=== PATIENT | male | born 1950 | race Caucasian/White ===

== ENCOUNTER 2024-11-14 12:51 | Outpatient (AMB) | payer OTHER, SELFPAY ==
--- NOTE | 2024-11-14 12:59 | MHC.OFFVIS ---
Intake Visit Reasons: Erectile Dysfunction Intake Note: Patient is present for erectile dysfunction Urology Medication:none Antibiotic Allergy:none Blood Thinner:none Long Winder Tender Required: No HPI Comments Details: Bart is a pleasant male. He is a patient of the [facility]. He is seen for the following urologic conditions - erectile dysfunction Erectile dysfunction - The patient is a 74 year old male presenting with erectile dysfunction. - Onset of erectile dysfunction approximately 15 years ago. - Initial treatment with Viagra showed initial benefit; ceased effectiveness over time. - Trial of Cialis provided minimal improvement. - Currently using 5 mg of tadalafil daily from online provider with mild improvement. - Reports issues with sustaining and achieving erection Trial 10 mg daily with 20 mg on demand Review of Systems Const Denies chills and Denies fever(s) Card Reports no additional complaints and Denies syncope Resp Denies cough GI Denies abdominal pain and Denies heartburn Reports as per HPI and Denies change in libido Neuro Denies syncope Psych Denies change in libido Endo Denies change in libido Physical Exam Const General: cooperative, healthy appearing, comfortable and no acute distress Orientation/consciousness: patient oriented x3 HEENT Face and sinus: Yes normal facial exam Mouth: moist mucous membranes Neck Neck: Yes normal visual inspection, Yes full ROM and Yes trachea midline Chest Chest palpation & inspection: normal inspection of the chest Resp Effort & Inspection: normal respiratory effort, able to speak in complete sentences and no respiratory distress GI Inspection: Yes normal to inspection Back/Spine/Pelvis Cervical Spine: normal cervical lordosis Thoracic/Lumbar Spine: thoracic and lumbar spine normal to inspection Skin General skin exam: no rashes or lesions noted Neuro General: patient oriented x3, gait normal, tone normal and moves all extremities Extrem General: Yes normal to inspection and Yes capillary refill normal Assessment & Plan Assessment & Plan (1) Erectile dysfunction: Code(s): N52.9 - Male erectile dysfunction, unspecified Category: Medical Plan Plan Patient informed verbally consented to the use of an ambient scribe 1. Erectile Dysfunction Prescribed tadalafil 10 mg daily and 20 mg as needed. Prescription sent to [facility] for 12 tablets of 20 mg/90 days. Costs estimated at $45 for 90-day local pharmacy supply. Discussion Notes I discussed with the patient that erectile dysfunction can often be challenging to treat effectively in older age. I proposed increasing his tadalafil dosage to 10 mg daily to enhance efficacy, with an option of 20 mg for use as needed on special occasions, to be obtained through [employer] benefits. I highlighted the cost benefits of purchasing locally versus online solutions. I made the patient aware that while there is a 50% chance of significant improvement, complete resolution may not be possible due to age-related changes. Alternatives, such as penile constriction bands, were discussed if pharmacological treatments do not suffice. The patient understood and agreed to the treatment plan, including the potential benefit and limitations. Patient Instructions - Take 10 mg of tadalafil daily. - Use 20 mg tadalafil as needed up to 12 per 90 days, obtain from [facility]. - Purchase medications from local pharmacy to reduce costs. - Call to stop online subscription for tadalafil. - Follow-up in 3 months to evaluate treatment efficacy and adjust if necessary. - Report any adverse effects or concerns immediately. Medications: New tadalafil 60 minutes performed 10 and activity 20 mg PO ONCE 90 days PRN 12 tabs 0RF sexual activity N52.9 - Male erectile dysfunction, unspecified tadalafil Daily medication [id number] [facility] [id number] Member [id number] 10 mg PO DAILY 90 days 90 tabs 0RF sexual activity N52.9 - Male erectile dysfunction, unspecified Patient Instructions: This note is constructed using voice recognition software. While every effort has been made to ensure accuracy cardiopulmonary technologist errors may have been included. Imaging studies, laboratory and physical exam results were discussed and reviewed in detail. No major barriers to patient understanding were identified. An opportunity to ask questions regarding the treatment plan was provided. All questions were answered. The patient expressed understanding and agreement with the above treatment plan. The patient is aware they should contact our office by phone for worsening of their current condition or the appearance of new urologic symptoms. Compliance is encouraged with any medications and followup testing that is ordered. It is a privilege to participate in the urologic care of your patient. If you have any questions or concerns regarding treatment for the above conditions, or other urologic issues, please do not hesitate to contact me. The office telephone contact is [phone]. Sincerely, Dr Santy Hanson MD, [facility] - Urology Compassionate Specialist Care for the Genitourinary System Coding Level of Care Code New Pt Level 4 (59331) Diagnoses Erectile dysfunction N52.9
--- OUTSIDE RECORDS SUMMARY | 2024-11-14 13:06 | XMS_ITS ---
Author Name [facility] [place] Organization [facility] [place] Address [address] [place] [id number] Care Team Providers Care Carcass Washer Name Role Phone ANTONINA MEAD Primary Care Provider [facility] Insurance Providers: All historical and current Section Date Range: From patient's date of to the date document was created. This section includes the names of all active insurance providers for the patient. Insurance Provider Type of Coverage Plan Name Start of Policy Coverage End of Policy Coverage Group Number Member ID Insurance Provider's Telephone Number Policy Gonzalez's Name Patient's Relationship to Policy Gonzalez [facility] FEP PREFERRED PROVIDER ORGANIZAT ION (PPO) BASIC INDIV IDUAL Apr 18, 2022 [id number] [phone] AARON HENSLEY PATIENT [facility] THOM FEP PREFERRED PROVIDER ORGANIZAT ION (PPO) BASIC INDIV IDUAL Apr 18, 2022 [id number] AARON HENSLEY PATIENT MEDICARE (WNR) MEDICARE (M) PART A Mar 18, 2014 PART A [id number] AARON HENSLEY PATIENT MEDICARE (WNR) MEDICARE (M) PART B Mar 18, 2014 PART B [id number] AARON HENSLEY PATIENT Selected Encounter This section includes the information on record at [place] for the Encounter. Date/Time Encounter Type Encounter Description Reason Pro vider Source November 13, 2024 10:42 AM Outpatient Encounter PRIMARY CARE/MEDICINE IHE Encounter Template Text not used by [place] Plan of Treatment: Future Appointments (+ 6 months) and Future Tests (+/- 45 days) The Plan of Treatment section includes future care activities for the patient [facility] [place] [facility] This section includes future appointments and future orders which are active, pending or scheduled. Future Appointments This section includes appointments that were scheduled to occur 6 months from the date of the Encounter, up to a maximum of 20 appointments. The data comes from all [facility]. Appointment Date/Time Appointment Type Appointme nt Facility Name November 14, 2024 01:30 PM AMBULATORY - MEDICINE [facility] Nov 17, 2024 11:00 AM AMBULATORY MEDICINE [facility] Nov 18, 2024 03:00 PM AMBULATORY MEDICINE [facility] Active, Pending, and Scheduled Orders This section includes a listing of several types of active, pending, and scheduled orders, including clinic medications orders, diagnostic test orders, procedure orders and consult orders; where the start date of the order is 45 days before the date of the Encounter or 45 days after the date of theEncounter. The data comes from all [facility]. Test Date/Time Test Type Test Details Facility Name October 31, 2024 12:00 AM Laboratory - Chemi stry Order BASIC METABOLIC PANEL (non-fasting) BLOOD (SST-SERUM) [facility] October 31, 2024 12:00 AM Laboratory - Chemi stry Order LIPID PANEL FASTING BLOOD (SST-SERUM) [facility] October 31, 2024 12:00 AM Laboratory - Chemi stry Order LIVER FUNCTION BLOOD (SST-SERUM) [facility] October 31, 2024 12:00 AM Laboratory - Chemi stry Order CBC BLOOD (LAV-BLOOD) [facility] November 11, 2024 03:05 PM Consult Order COMMUNITY CARE-UROLOGY Cons [facility] Worker's [facility] Social History: Smoking Status (Most current) and Tobacco Use (All prior to encounter date) This section includes the most current, and the historical, smoking and tobacco- related health factors from the [place] facility where the Encounter took place. Current Smoking Status This section includes the most current smoking, or tobacco-related health factor, from the [place] facility where the Encounter took place. Date/Time Current Smoking Status Comment Perfecto meraz Jul 03, 2024 11:30 AM VA-TOBACCO NEVER U SED CIGARETTES [facility] Tobacco Use History This section includes a history of the smoking, or tobacco-related health factors, that were collected on or before the date of the Encounter. The data comes from the [place] facility where the Encounter took place. Date/Time Smoking Status/Tobacco Use Comment Alyssia be Jul 03, 2024 11:30 AM VA-TOBACCO NEVER U SED OTHER TYPE [facility] [place] [facility] Jun 05, 2023 03:30 PM VA-TOBACCO NEVER USED [facility] [place] [facility] May 17, 2022 09:00 AM VA-TOBACCO DOESNT USE WI 30 MIN WAKEUP [facility] [place] [facility] May 17, 2022 09:00 AM VA-TOBACCO USE > 1 5 LESS THAN 30 YEARS [facility] [place] [facility] May 17, 2022 09:00 AM VA-TOBACCO USE ADVICE [facility] [place] [facility] May 17, 2022 09:00 AM VA-TOBACCO USE FINISHER PLATE NO [facility] [place] [facility] May 17, 2022 09:00 AM VA-TOBACCO USE MED NO [facility] [place] [facility] May 17, 2022 09:00 AM VA-TOBACCO USER EVERY DAY [facility] [place] [facility] Mar 17, 2021 08:00 AM VA-TOBACCO DOESNT USE WI 30 MIN WAKEUP [facility] [place] [facility] Mar 17, 2021 08:00 AM VA-TOBACCO USE 30 YEARS OR MORE [facility] [place] [facility] Mar 17, 2021 08:00 AM VA-TOBACCO USE ADVICE [facility] [place] [facility] Mar 17, 2021 08:00 AM VA-TOBACCO USE FINISHER PLATE NO [facility] [place] [facility] Mar 17, 2021 08:00 AM VA-TOBACCO USE MED NO [facility] [place] [facility] Mar 17, 2021 08:00 AM VA-TOBACCO USER EVERY DAY [facility] [place] [facility] Sep 25, 2019 01:42 PM VA-TOBACCO DOESNT USE WI 30 MIN WAKEUP [facility] [place] [facility] Sep 25, 2019 01:42 PM VA-TOBACCO USE 30 YEARS OR MORE [facility] [place] [facility] Sep 25, 2019 01:42 PM VA-TOBACCO USE ADVICE [facility] [place] [facility] Sep 25, 2019 01:42 PM VA-TOBACCO USE FINISHER PLATE NO [facility] [place] [facility] Sep 25, 2019 01:42 PM VA-TOBACCO USE MED NO [facility] [place] [facility] Sep 25, 2019 01:42 PM VA-TOBACCO USER EVERY DAY [facility] [place] [facility] Jun 19, 2018 12:39 PM VA-TOBACCO DOESNT USE WI 30 MIN WAKEUP [facility] [place] [facility] Jun 19, 2018 12:39 PM VA-TOBACCO USE > 1 5 LESS THAN 30 YEARS [facility] [place] [facility] Jun 19, 2018 12:39 PM VA-TOBACCO USE ADVICE [facility] [place] [facility] Jun 19, 2018 12:39 PM VA-TOBACCO USE FINISHER PLATE NO [facility] [place] [facility] Jun 19, 2018 12:39 PM VA-TOBACCO USE MED NO [facility] [place] [facility] Jun 19, 2018 12:39 PM VA-TOBACCO USER EVERY DAY [facility] [place] [facility] May 08, 2017 10:41 AM CURRENT SMOKER cigars [facility] [place] [facility] Apr 14, 2016 09:10 AM CURRENT SMOKER [facility] [place] [facility] Apr 14, 2016 09:10 AM V1-PT NOT INTEREST ED IN QUIT TOBACCO USE [facility] [place] [facility] Encounter Notes: All associated encounter notes This section contains the clinical notes associated to the Encounter. Date/Time Encounter Note(s) Provider Source November 13, 2024 10:42 AM NURSING NOTE: LOCAL TITLE: NURSING/TELEPHONE STANDARD TITLE: NURSING NOTE DATE OF NOTE: NOVEMBER 13, 2024@10:42 ENTRY DATE: NOVEMBER 13, 2024@10:42:50 AUTHOR: JUSTO PERRIN EXP COSIGNER: URGENCY: STATUS: COMPLETED Labs completed on 10-13-2024@1100 for appt with PCP on 11-17-2024@1100. /melida/ Justo Perrin, [employer] Counter Person MAJOR ASSEMBLY LINEMAN,PRIMARY CARE Signed: 11/13/2024 10:44 JUSTO PERRIN [facility]
== END 2024-11-14 13:26 | disposition home or self-care (01) ==
LOC: HO.HUSH 12:52
PROVIDERS: PCP Internal Medicine Endocrinology, Diabetes & Metabolism; Visit Provider Urology
DX: N52.9 Male erectile dysfunction, unspecified (principal); Z13.9 Encounter for screening, unspecified
CPT/HCPCS: 99204

== ENCOUNTER → 2024-11-14 12:51 | Outpatient (BNVA) | payer OTHER, SELFPAY | PROVIDERS: PCP Internal Medicine Endocrinology, Diabetes & Metabolism; Visit Provider Urology | DX: N52.9 Male erectile dysfunction, unspecified (principal) | CPT/HCPCS: 81003; 99202 ==

== ENCOUNTER 2025-02-17 10:08 | Outpatient (AMB) | payer OTHER, SELFPAY ==
--- OUTSIDE RECORDS SUMMARY | 2024-03-24 07:30 | XMS_ITS | Encounter Summary ---
Author Name [facility] [facility] [place] Address [address] [place] [id number] Care Team Providers Care Fuselage Framer Name Role Phone ANTONINA JENSEN Primary Care Provider [facility] Insurance Providers: All historical and current Section Date Range: From patient's date of to the date document was created. This section includes the names of all active insurance providers for the patient. Insurance Provider Type of Coverage Plan Name Start of Policy Coverage End of Policy Coverage Group Number Member ID Insurance Provider's Telephone Number Policy Gonzalez's Name Patient's Relationship to Policy Gonzalez [employer]BS THOM FEP PREFERRED PROVIDER ORGANIZAT ION (PPO) BASIC INDIV IDUAL Apr 18, 2022 [id number] [phone] AARON HENSLEY PATIENT BCBS THOM FEP PREFERRED PROVIDER ORGANIZAT ION (PPO) BASIC INDIV IDUAL Apr 18, 2022 [id number] [phone] AARON HENSLEY PATIENT MEDICARE (WNR) MEDICARE (M) PART A Mar 18, 2014 PART A [id number] AARON HENSLEY PATIENT MEDICARE (WNR) MEDICARE (M) PART B Mar 18, 2014 PART B [id number] AARON HENSLEY PATIENT Selected Encounter This section includes the information on record at [place] for the Encounter. Date/Time Encounter Type Encounter Description Reason Provider Source Mar 24, 2024 11:30 AM OFFICE O/P EST MOD 30 MIN PRIMARY CARE/MEDICINE ICD-10-CM E78.5 Hyperlipidemia, unspecified JENSEN,ALEJANDRA SULLIVAN Encounter Template Text not used by [place] Assessments - Encounter Diagnoses This section includes the primary and secondary diagnoses documented for the Encounter. Date/Time Primary/Secondary Diagnosis Diagnosis Name Provider Source Mar 26, 2024 07:53 AM PRIMARY Hyperlipidemia, unspecified JENSEN,WILL AHSAN [facility] Mar 26, 2024 07:53 AM SECONDARY Encounter for immunization RODERICKSTALIN Rodriguez [facility] Mar 26, 2024 07:53 AM SECONDARY Essential (primary) hypertension JENSEN,WILL AHSAN [facility] Mar 26, 2024 07:53 AM SECONDARY Male erectile dysfunction, unspecified [facility] Mar 26, 2024 07:53 AM SECONDARY Personal history of malignant melanoma of skin JENSEN,WILL AHSAN [facility] Mar 26, 2024 07:53 AM SECONDARY Prediabetes JENSEN,WILL AHSAN [facility] Mar 26, 2024 07:53 AM SECONDARY Tobacco use JENSEN,WILL AHSAN [facility] Plan of Treatment: Future Appointments (+ 6 months) and Future Tests (+/- 45 days) The Plan of Treatment section includes future care activities for the patient from all [place] treatmentfacilities. This section includes future appointments and future orders which are active, pending or scheduled. Future Appointments This section includes appointments that were scheduled to occur 6 months from the date of the Encounter, up to a maximum of 20 appointments. The data comes from all [place] treatment facilities. Appointment Date/Time Appointment Type Appointme nt Facility Name Jul 03, 2024 11:30 AM [facility] Aug 12, 2024 08:30 AM AMBULATORY - NONE [facility] Vital Signs: All taken on the encounter date This section contains inpatient and outpatient Vital Signs collected on the date of the Encounter. Date/Time Temperature Pulse Blood Pressure Respiratory Rate SP02 Pain Height Weight Body Mass Index Source Mar 24, 2024 11:24 AM 98 80 137/78 16 96 0 70 171.8 25 [facility] Immunizations: All administered on the encounter date This section contains immunizations associated to the Encounter. Immunization Series Date Issued Administered By Site Reaction Lot Number CVX Code Drug Cage Supervisor Comment(s) Source COVID-19 (MODERNA), MRNA, LNP-S, PF, 50 MCG/0.5 ML (AGES 12+ YEARS) 6 Mar 24, 2024 STALIN VAUGHN RIGHT DELTO ID [id number] [employer] ADMINISTERE D AT [facility] INFLUENZA, HIGH-DOSE, TRIVALENT, PF Mar 24, 2024 GUANACO VAUGHNElier Silverio Jennifer LEFT DELTO ID [id number] [employer] PASTEUR Completed Series, ADMINISTERE D AT [facility] Social History: Smoking Status (Most current) and Tobacco Use (All prior to encounter date) This section includes the most current, and the historical, smoking and tobacco- related health factors from the [place] facility where the Encounter took place. Current Smoking Status This section includes the most current smoking, or tobacco-related health factor, from the [place] facility where the Encounter took place. Date/Time Current Smoking Status Comment Perfecto ity Jun 05, 2023 03:30 PM VA-TOBACCO NEVER USED [facility] Tobacco Use History This section includes a history of the smoking, or tobacco-related health factors, that were collected on or before the date of the Encounter. The data comes from the [place] facility where the Encounter took place. 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 [facility] [place] [facility] May 17, 2022 09:00 AM VA-TOBACCO USE MED NO [facility] [place] [facility] May 17, 2022 09:00 AM VA-TOBACCO USER EVERY DAY [facility] [place] [facility] Mar 17, 2021 08:00 AM VA-TOBACCO DOESNT USE WI 30 MIN WAKEUP [facility] [place] [facility] Mar 17, 2021 08:00 AM VA-TOBACCO USE 30 YEARS OR MORE [facility] [place] [facility] Mar 17, 2021 08:00 AM VA-TOBACCO USE ADVICE [facility] [place] [facility] Mar 17, 2021 08:00 AM 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 [facility] [place] [facility] Mar 17, 2021 08:00 AM VA-TOBACCO USE MED NO [facility] [place] [facility] Mar 17, 2021 08:00 AM VA-TOBACCO USER EVERY DAY [facility] [place] [facility] Sep 25, 2019 01:42 PM VA-TOBACCO DOESNT USE WI 30 MIN WAKEUP [facility] [place] [facility] Sep 25, 2019 01:42 PM VA-TOBACCO USE 30 YEARS OR MORE [facility] [place] [facility] Sep 25, 2019 01:42 PM VA-TOBACCO USE ADVICE [facility] [place] [facility] Sep 25, 2019 01:42 PM 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 [facility] [place] [facility] Sep 25, 2019 01:42 PM VA-TOBACCO USE MED NO [facility] [place] [facility] Sep 25, 2019 01:42 PM VA-TOBACCO USER EVERY DAY [facility] [place] [facility] Jun 19, 2018 12:39 PM VA-TOBACCO DOESNT USE WI 30 MIN WAKEUP [facility] [place] [facility] Jun 19, 2018 12:39 PM VA-TOBACCO USE > 1 5 LESS THAN 30 YEARS [facility] [place] [facility] Jun 19, 2018 12:39 PM VA-TOBACCO USE ADVICE [facility] [place] [facility] Jun 19, 2018 12:39 PM 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 Jun 19, 2018 12:39 PM VA-TOBACCO USER EVERY DAY [facility] May 08, 2017 10:41 AM CURRENT SMOKER cigars [facility] Apr 14, 2016 09:10 AM [facility] Apr 14, 2016 09:10 AM V1-PT NOT INTEREST ED IN QUIT TOBACCO USE [facility] Encounter Notes: All associated encounter notes This section contains the clinical notes associated to the Encounter. Date/Time Encounter Note(s) Provider Source Mar 24, 2024 11:57 AM PREVENTIVE MEDICINE NURSING NOTE: LOCAL TITLE: CLINICAL REMINDERS/NURSING STANDARD TITLE: PREVENTIVE MEDICINE NURSING NOTE DATE OF NOTE: MAR 24, 2024@11:57 ENTRY DATE: MAR 24, 2024@11:57:22 AUTHOR: ALMITA VAUGHN EXP COSIGNER: URGENCY: STATUS: COMPLETED Influenza Immunization: Influenza, High-Dose, Trivalent, Preservative Free (Fluzone-Syringe) Administered: INFLUENZA, HIGH-DOSE, TRIVALENT, PF Date Administered: Mar 24, 2024 11:30 Series: Complete Cage Supervisor: SANOFI PASTEUR Lot: [id number] Exp Date: Dec 15, 2024 ND: [id number] Admin Route/Site: INTRAMUSCULAR/LEFT DELTOID Dosage: 0.5mL Vaccine Information Statement(s): INFLUENZA(FLU) VACC(INACTIVATED OR RECOMBINANT)VIS Jan 21, 2021 ([place]) Order By: Policy Administered By: Almita Vaughn The Influenza Vaccine Information Statement (VIS) was reviewed with the patient/caregiver which lists the benefits and risks of the vaccine and the risks of not receiving the Influenza vaccine. The patient/caregiver denied any prior severe reaction to this vaccine or its components or a severe allergic reaction, such as anaphylaxis, to any vaccine or any injectable therapy. The patient/caregiver gave verbal consent to receive the vaccine. COVID-19 Immunization: Moderna Monovalent (Spikevax) Administered: COVID-19 (MODERNA), MRNA, LNP-S, PF, 50 MCG/0.5 ML (AGES 12+ YEARS) Date Administered: Mar 24, 2024 11:30 Series: Series 6 Cage Supervisor: [employer]. Lot: [id number] Exp Date: November 07, 2024 [facility]: [id number] Admin Route/Site: INTRAMUSCULAR/RIGHT DELTOID Dosage: 0.5mL Vaccine Information Statement(s): COVID-19 MRNA VACCINE (12+ YRS) VACCINE VIS 2023 ([place]) Order By: Policy Administered By: Almita Vaughn Vaccine administered without complications. /melida/ ALMITA VAUGHN LPN LPN Signed: 03/24/2024 11:59 ALMITA VAUGHN [facility] [place] [facility] Mar 24, 2024 11:30 AM PRIMARY CARE NURSE PRACTITIONER OUTPATIENT NOTE: LOCAL TITLE: NURSE PRACTITIONER OUTPATIENT NOTE STANDARD TITLE: PRIMARY CARE NURSE PRACTITIONER OUTPATIENT NOTE DATE OF NOTE: MAR 24, 2024@11:30 ENTRY DATE: MAR 26, 2024@07:48:43 AUTHOR: ANTONINA JENSEN COSIGNER: URGENCY: STATUS: COMPLETED Chief complaint: Patient is a 73 year old . HPI: Pleasant male here to follow up. First visit with me. Feeling well. Allergies: PENICILLIN The following VA and Non-VA meds were reconciled with patient. The patient was educated on the use of the medications including indication and side effects. Active and Recently Outpatient Medications (excluding Supplies): Active Outpatient Medications Status 1) LOSARTAN 50MG TAB TAKE ONE TABLET BY MOUTH ONCE DAILY ACTIVE FOR BLOOD PRESSURE/HEART 2) SILDENAFIL CITRATE 100MG TAB TAKE ONE TABLET BY MOUTH ACTIVE ONCE DAILY NEEDED FOR ERECTILE DYSFUNCTION TAKE 1 HOUR PRIOR TO SEXUAL ACTIVITY 3) TRAZODONE HCL 100MG TAB TAKE ONE AND ONE-HALF TABLETS ACTIVE BY MOUTH AT BEDTIME FOR INSOMNIA 4) UREA 10% LOTION APPLY SMALL AMOUNT TOPICALLY TWICE ACTIVE DAILY FOR THICKENED OUTER LAYER OF SKIN *FOR EXTERNAL USE ONLY* Review of Systems: Constitutional: (-)for Fevers, chills, weakness, nights sweats On examination: 98 F [36.7 C] (03/24/2024 11:24)137/78 (03/24/2024 11:24)80 (03/24/2024 11:24)16 (03/24/2024 11:24)0 (03/24/2024 11:24)BMI: 24.7171.8 lb [77.93 kg] (03/24/2024 11:24) [place] is alert and oriented X3 Eyes:No scleral icterus, lids normal, Pupils equal,round and reactive to light HEENT: External without scars, lesions or masses, TM's without erythema or perforations, Oropharynx without erythema or exudates or worrisome lesions Neck: supple without masses, trachea midline, ln not palpable, no thyromegaly Cardiovasc: 2plus carotids without bruits, no JVD Heart Reguler rate and rhythm NL S1S2 no S3 or murmur Respiration: Normal respiratory effort, lungs clear ABD: Benign normal active bowel sounds no HSM no rebound or referred pain EXT: no clubbing, edema, or cyanosis All diagnostics from past month were reviewed with patient. Assessment/plan: Active problems - Computerized Problem List is the source for the followin. Hyperlipidemia - labs ordered 2. Prediabetes - labs ordered 3. Hypertension = well controlled 4. Erectile dysfunction (SNOMED CT [id number]) - sildenafil helpful 5. Tobacco use - counseled 6. History of malignant melanoma - [facility] Review of medial record = 5mins Time spent with Patient including shared decision making = 15 mins Post visit documentation = 5mins Total time = 25 mins Follow up visit in 6 mos. Medication Reconciliation: Outpatient: Has the patient been taking medications as documented in the EMLR? YES: The patient has been taking medications as documented in the EMLR. Essential Medication List for Review used to complete this medication reconciliation. INCLUDED IN THIS LIST: Alphabetical list of active outpatient prescriptions dispensed from this [facility] (local) and dispensed from another [place] or [facility] facility (remote) as well as inpatient orders (local, pending and active), local clinic medications, locally documented non-VA medications, and local prescriptions that have or been discontinued in the past 90 days. - All changes in medications, including all non-VA/Herbal/OTC medications were entered into CPRS. - If there were any medications the patient should no longer take, they were discontinued. - The patient/caregiver was instructed to update this list, discard old lists, and take this list to the next appointment, whether with a VA or non-VA provider. /melida/ Antonina Jensen DNP, [employer] PERSON-BC, CNL Primary Care Nurse Practitioner Signed: 03/26/2024 07:52 ANTONINA JENSEN [facility]
--- OUTSIDE RECORDS SUMMARY | 2024-07-03 07:30 | XMS_ITS | Encounter Summary ---
Author Name [facility] [place] [facility] [place] [facility] [place] Address [address] [place] [id number] Care Team Providers Care Pile Driving Superintendent Name Role Phone TICO JENSEN Primary Care Provider [facility] Insurance Providers: All historical and current [...] BASIC INDIV IDUAL Apr 18, 2022 [id number] AARON HENSLEY PATIENT BCBS THOM FEP PREFERRED PROVIDER ORGANIZAT ION (PPO) BASIC INDIV IDUAL Apr 18, 2022 [id number] AARON HENSLEY PATIENT MEDICARE (WNR) MEDICARE (M) PART A Mar 18, 2014 PART A [id number] AARON HENSLEY PATIENT MEDICARE (WNR) MEDICARE (M) PART B Mar 18, 2014 PART B [id number] AARON HENSLEY PATIENT Selected Encounter This section includes the information on record at [place] for the Encounter. Date/Time Encounter Type Encounter Description Reason Provider Source Jul 03, 2024 11:30 AM OFFICE O/P EST MOD 30 MIN PRIMARY CARE/MEDICINE ICD-10-CM N52.9 Male erectile dysfunction, unspecified ALEJANDRA JENSEN AM [facility] Encounter Template Text not used by [place] Assessments - Encounter Diagnoses This section includes the primary and secondary diagnoses documented for the Encounter. Date/Time Primary/Secondary Diagnosis Diagnosis Name Provider Source Jul 03, 2024 01:05 PM PRIMARY Male erectile dysfunction, unspecified [facility] Jul 03, 2024 01:05 PM SECONDARY Encounter for screening for malignant neoplasm of colon ALEJANDRA JENSEN AM [facility] Plan of Treatment: Future Appointments (+ 6 months) and Future Tests (+/- 45 days) The Plan of Treatment section includes future care activities for the patient from all [place] treatmentfacilities. This section includes future appointments and future orders which are active, pending or scheduled. Future Appointments This section includes appointments that were scheduled to occur 6 months from the date of the Encounter, up to a maximum of 20 appointments. The data comes from all [place] treatment facilities. Appointment Date/Time Appointment Type Appointme nt Facility Name Aug 12, 2024 08:30 AM AMBULATORY - NONE [facility] November 14, 2024 01:30 PM AMBULATORY - MEDICINE [facility] Lab Results: +/- 30 days of the encounter This section includes the Chemistry and Hematology Lab Results on record with [place] for the patient. Radiology Reports and Pathology Reports are provided separately, in subsequent sections. Lab Results This section contains the Chemistry/Hematology Results that were resulted 30 days before or 30 daysafter the date of the Encounter. Date/Time Source Result Type Result - Unit Interpretation Reference Range Specimen Type Comment Jun 12, 2024 12:01 AM [facility] OCCULT BLOOD FIT X1 SCREEN(IN-HOUSE) FECES Sp ecimen Type: FECES Comment: Collection date could not be determined. Sample integrity cannot be ensured. Follow-up clinical evaluation following this presumptive positive result is required to determine further action. Ordering Provider: TICO JENSEN Report Released Date/Time: May 23, 2024 03:07 PM Reporting Lab: [address] [place] [address] Performing Lab: [facility] [place] [facility] [address] [facility] [address] OCCULT BLOOD (FIT)#1 OF 1 POSITIVE HH NEG Vital Signs: All taken on the encounter date This section contains inpatient and outpatient Vital Signs collected on the date of the Encounter. Date/Time Temperature Pulse Blood Pressure Respiratory Rate SP02 Pain Height Weight Body Mass Index Source Jul 03, 2024 01:02 PM 134/72 [facility] [place] [facility] Jul 03, 2024 11:04 AM 98.2 78 140/83 20 97 0 70 171 25 [facility] [place] [facility] Social History: Smoking Status (Most current) and Tobacco Use (All prior to encounter date) This section includes the most current, and the historical, smoking and tobacco- related health factors from the [place] facility where the Encounter took place. Current Smoking Status This section includes the most current smoking, or tobacco-related health factor, from the [place] facility where the Encounter took place. Date/Time Current Smoking Status Comment Perfecto ity Jul 03, 2024 11:30 AM VA-TOBACCO NEVER U SED CIGARETTES [facility] Tobacco Use History This section includes a history of the smoking, or tobacco-related health factors, that were collected on or before the date of the Encounter. The data comes from the [place] facility where the Encounter took place. Date/Time Smoking Status/Tobacco Use Comment F acility Jul 03, 2024 11:30 AM VA-TOBACCO NEVER U SED OTHER TYPE [facility] [place] [facility] Jun 05, 2023 03:30 PM VA-TOBACCO NEVER USED [facility] [place] [facility] May 17, 2022 09:00 AM VA-TOBACCO DOESNT USE WI 30 MIN WAKEUP [facility] [place] [facility] May 17, 2022 09:00 AM VA-TOBACCO USE > 1 5 LESS THAN 30 YEARS [facility] [place] [facility] May 17, 2022 09:00 AM VA-TOBACCO USE ADVICE [facility] [place] [facility] May 17, 2022 09:00 AM VA-TOBACCO USE BUSINESS SERVICES OFFICER NO [facility] [place] [facility] Mar 17, 2021 08:00 AM VA-TOBACCO USE BUSINESS SERVICES OFFICER NO [facility] [place] [facility] Sep 25, 2019 01:42 PM VA-TOBACCO USE BUSINESS SERVICES OFFICER NO [facility] [place] [facility] Jun 19, 2018 12:39 PM VA-TOBACCO USE BUSINESS SERVICES OFFICER NO [facility] [place] [facility] Jun 19, 2018 12:39 PM VA-TOBACCO USE MED NO [facility] Jun 19, 2018 12:39 PM VA-TO[facility]ACCO USER EVERY DAY [facility] May 08, 2017 10:41 AM CURRENT SMOKER cigars [facility] Apr 14, 2016 09:10 AM CURRENT SMOKER [facility] Apr 14, 2016 09:10 AM V1-PT NOT INTEREST ED IN QUIT TOBACCO USE [facility] Encounter Notes: All associated encounter notes This section contains the clinical notes associated to the Encounter. Date/Time Encounter Note(s) Provider Source Jul 03, 2024 11:47 AM PRIMARY CARE NURSE PRACTITIONER OUTPATIENT NOTE: LOCAL TITLE: NURSE PRACTITIONER OUTPATIENT NOTE STANDARD TITLE: PRIMARY CARE NURSE PRACTITIONER OUTPATIENT NOTE DATE OF NOTE: JUL 03, 2024@11:47 ENTRY DATE: JUL 03, 2024@11:47:06 AUTHOR: TICO JENSEN COSIGNER: URGENCY: STATUS: COMPLETED Chief complaint: Patient is a 74 year old . HPI: Pleasant male [place] here to follow up. He is in a relationship, past 1.5 years and maybe moving in with each other. Allergies: PENICILLIN The following VA and Non-VA meds were reconciled with patient. The patient was educated on the use of the medications including indication and side effects. Active and Recently Outpatient Medications (excluding Supplies): Active Outpatient Medications Status 1) LOSARTAN 50MG TAB TAKE ONE TABLET BY MOUTH ONCE DAILY FOR ACTIVE (S) BLOOD PRESSURE/HEART Indication: FOR HIGH BLOOD PRESSURE 2) TRAZODONE HCL 100MG TAB TAKE ONE AND ONE-HALF TABLETS BY ACTIVE MOUTH AT BEDTIME FOR INSOMNIA Indication: FOR INSOMNIA ASSOCIATED WITH DEPRESSION 3) UREA 10% LOTION APPLY SMALL AMOUNT TOPICALLY TWICE DAILY ACTIVE *FOR EXTERNAL USE ONLY* Indication: FOR THICKENED OUTER LAYER OF SKIN Inactive Outpatient Medications Status 1) TRAZODONE HCL 100MG TAB TAKE ONE AND ONE-HALF TABLETS BY MOUTH AT BEDTIME FOR INSOMNIA 4 Total Medications Review of Systems: Constitutional: (-)for Fevers, chills, weakness, nights sweats On examination: 98.2 F [36.8 C] (07/03/2024 11:04)140/83 (07/03/2024 11:04)78 (07/03/2024 11:04)20 (07/03/2024 11:04)0 (07/03/2024 11:)BMI: 24.6171 lb [77.56 kg] (07/03/2024 11:) [place] is alert and oriented X3 Cardiovasc: 2plus carotids without bruits, no JVD [...] List is the source for the followin. Erectile dysfunction (SNOMED CT [id number]) - sildenafil not helpful. He used cialis in the past, felt it caused some lower ext edema, now thinks it was something else, will to try it. Also has consult with community urology. 2. +fit - he is scheduled with GI for colonoscopy. Today I spent 30 minutes on some or all of the following: chart review, history, physical examination, treatment planning, education and counseling of the patient/family/occasional caregiver, placing orders, communicating with other health care providers, completing health and wellness screenings (see below) and documentation in the electronic health record. Follow up visit as scheduled. HTN Assess for Elevated BP>=140/90: Repeat blood pressure: 134/72 The patient's blood pressure is usually adequately controlled. No medication changes are indicated at this time. Medication Reconciliation: Outpatient: Has the patient been taking medications as documented in the EMLR? YES: The patient has been taking medications as documented in the EMLR. Essential Medication List for Review used to complete this medication reconciliation. INCLUDED IN THIS LIST: Alphabetical list of active outpatient prescriptions dispensed from this [facility] (local) and dispensed from another VA or [facility] facility (remote) as well as [...] with a VA or non-VA provider. /melida/ Tico Jensen DNP, FLAVORING MAKER-BC, CNL Primary Care Nurse Practitioner Signed: 07/03/2024 13:04 TICO JENSEN [facility] [place] [facility] Jul 03, 2024 11:14 AM PREVENTIVE MEDICINE NURSING NOTE: LOCAL TITLE: CLINICAL REMINDERS/NURSING STANDARD TITLE: PREVENTIVE MEDICINE NURSING NOTE DATE OF NOTE: JUL 03, 2024@11:14 ENTRY DATE: JUL 03, 2024@11:14:42 AUTHOR: JUSTO PERRINIGNER: URGENCY: STATUS: COMPLETED Advance Directive Screen MH AD: Patient does not have an Advance Directive completed and is requesting more information. A consult was sent to Social Work Services at this visit so that an appointment can be made with the patient to review the advance directive. The patient received education about Advance Directives and written notification of his/her rights. Suicide Screen: C-SSRS Screening [place]-Suicide Severity Rating Scale (C-SSRS Screener) 1. Over the past month, have you wished you were or wished you could go to sleep and not wake up? No 2. Over the past month, have you had any actual thoughts of killing yourself? No 3. Over the past month, have you been thinking about how you might do this? Response not required due to responses to other questions. 4. Over the past month, have you had these thoughts and had some intention of acting on them? Response not required due to responses to other questions. 5. Over the past month, have you started to work out or worked out the details of how to kill yourself? Response not required due to responses to other questions. 6. If yes, at any time in the past month did you intend to carry out this plan? Response not required due to responses to other questions. 7. In your lifetime, have you ever done anything, started to do anything, or prepared to do anything to end your life (for example, collected pills, obtained a gun, gave away valuables, went to the roof but didn't jump)? No 8. If YES, was this within the past 3 months? Response not required due to responses to other questions. Homelessness/Food Insecurity Screen: In the past 2 months, have you been living in stable housing that you own, rent, or stay in as part of a household? Yes - Living in stable housing. Are you worried or concerned that in the next 2 months you may NOT have stable housing that you own, rent, or stay in as part of a household? No - Not worried about housing near future The reports the following: Within the past 12 months, you worried whether your food would run out before you got money to buy more. Never true Within the past 12 months, the food you bought just didn't last and you didn't have money to get more. Never true Falls & Incontinence Screen: Falls Screen: During the past 12 months, did the patient report any falls? 4. No falls within the past year. Incontinence Screen: During the past 12 months, has the patient has any characteristics of incontinence (ability, voiding, leakage, etc.)? No incontinence. Depression Screening: Perform PHQ-2 A PHQ-2 screen was performed. The score was 0 which is a negative screen for depression. Over the past two weeks, how often have you been bothered by the following problems? 1. Little interest or pleasure in doing things Not at all 2. Feeling down, depressed, or hopeless Not at all Tobacco Use Screening: The patient has never smoked cigarettes. The patient has never used other types of tobacco. Alcohol Use Screen (AUDIT-C): Alcohol Screen: SCREEN FOR ALCOHOL (AUDIT-C) An alcohol screening test (AUDIT-C) was negative (score=1). 1. How often did you have a drink containing alcohol in the past year? Consider a drink to be a 12 ounce can or bottle of regular beer, 8 ounces of malt liquor, a 5 ounce glass of table wine, or a 1.5 ounce shot of liquor (like scotch, gin, or vodka). Monthly or less 2. How many drinks containing alcohol did you have on a typical day when you were drinking in the past year? One or two drinks 3. How often did you have six or more drinks on one occasion in the past year? Never /es/ Justo Perrin, Health Push Bench Operator Helper CHILDCARE ATTENDANT,PRIMARY CARE Signed: 07/03/2024 11:17 JUSTO PERRIN [facility]
--- OUTSIDE RECORDS SUMMARY | 2024-11-11 07:46 | XMS_ITS | Encounter Summary ---
Author Name [facility] Organization [facility] Address [address] [place] [id number] Care Team Providers Care Telegraph Office Route Aide Name Role Phone TICO JENSEN Primary Care Provider [facility] Insurance Providers: All historical and current Section Date Range: From patient's date of to the date document was created. This section includes the names of all active insurance providers for the patient. Insurance Provider Type of Coverage Plan Name Start of Policy Coverage End of Policy Coverage Group Number Member ID Insurance Provider's Telephone Number Policy Gonzalez's Name Patient's Relationship to Policy Gonzalez [facility] FEP PREFERRED PROVIDER ORGANIZAT ION (PPO) BASIC INDIV IDUAL Apr 18, 2022 [id number] [phone] AARON HENSLEY PATIENT [facility] THOM FEP PREFERRED PROVIDER ORGANIZAT ION (PPO) BASIC INDIV IDUAL Apr 18, 2022 [id number] [phone] AARON HENSLEY PATIENT MEDICARE (WNR) MEDICARE (M) PART A Mar 18, 2014 PART A [id number] AARON HENSLEY PATIENT MEDICARE (WNR) MEDICARE (M) PART B Mar 18, 2014 PART B [id number] AARON HENSLEY PATIENT Selected Encounter This section includes the information on record at [place] for the Encounter. Date/Time Encounter Type Encounter Description Reason Pro vider Source November 11, 2024 11:46 AM Outpatient Encounter COMMUNITY CARE CONSULT IHE Encounter Template Text not used by [place] Plan of Treatment: Future Appointments (+ 6 months) and Future Tests (+/- 45 days) The Plan of Treatment section includes future care activities for the patient [facility]. This section includes future appointments and future orders which are active, pending or scheduled. Future Appointments This section includes appointments that were scheduled to occur 6 months from the date of the Encounter, up to a maximum of 20 appointments. The data comes from all [facility] facilities. Appointment Date/Time Appointment Type Appointme nt Facility Name November 14, 2024 01:30 PM AMBULATORY - MEDICINE [facility] Active, Pending, and Scheduled Orders This section includes a listing of several types of active, pending, and scheduled orders, including clinic medications orders, diagnostic test orders, procedure orders and consult orders; where the start date of the order is 45 days before the date of the Encounter or 45 days after the date of theEncounter. The data comes from all [facility]. Test Date/Time Test Type Test Details Facility Name October 31, 2024 12:00 AM Laboratory - Chemi stry Order BASIC METABOLIC PANEL (non-fasting) BLOOD (SST-SERUM) [facility] October 31, 2024 12:00 AM Laboratory - Chemi stry Order LIPID PANEL FASTING BLOOD (SST-SERUM) [facility] October 31, 2024 12:00 AM Laboratory - Chemi stry Order LIVER FUNCTION BLOOD (SST-SERUM) [facility] October 31, 2024 12:00 AM Laboratory - Chemi stry Order CBC BLOOD (LAV-BLOOD) [facility] November 11, 2024 03:05 PM Consult Order COMMUNITY CARE-UROLOGY Cons Drawing Tracer's Choice [facility] Lab Results: +/- 30 days of the encounter This section includes the Chemistry and Hematology Lab Results on record with [place] for the patient. Radiology Reports and Pathology Reports are provided separately, in subsequent sections. Lab Results This section contains the Chemistry/Hematology Results that were resulted 30 days before or 30 daysafter the date of the Encounter. Date/Time Source Result Type Result - Unit Interpretation Reference Range Specimen Type Comment Oct 13, 2024 02:55 PM [facility] [place] [facility] LIPID PANEL, NON FASTING SERUM Specimen Type: SERUM Comment: GLUCOSE reported incorrectly as 116 by [[id number]]. Changed to canc on Oct 14, 2024@15:47 by [[id number]]. GLUCOSE flagged incorrectly as H by [[id number]]. Abnormal flag removed on Oct 14, 2024@15:47 by [[id number]]. UREA NITROGEN reported incorrectly as 4 by [[id number]]. Changed to canc on Oct 14, 2024@15:47 by [[id number]]. UREA NITROGEN flagged incorrectly as L by [[id number]]. Abnormal flag removed on Oct 14, 2024@15:47 by [[id number]]. SODIUM reported incorrectly as 136 by [[id number]]. Changed to canc on Oct 14, 2024@15:47 by [[id number]]. POTASSIUM reported incorrectly as 3.4 by [[id number]]. Changed to canc on Oct 14, 2024@15:47 by [[id number]]. POTASSIUM flagged incorrectly as L by [[id number]]. Abnormal flag removed on Oct 14, 2024@15:47 by [[id number]]. CHLORIDE reported incorrectly as 95 by [[id number]]. Changed to canc on Oct 14, 2024@15:47 by [[id number]]. CHLORIDE flagged incorrectly as L by [[id number]]. Abnormal flag removed on Oct 14, 2024@15:47 by [[id number]]. CO2 reported incorrectly as 26 by [[id number]]. Changed to canc on Oct 14, 2024@15:47 by [[id number]]. CALCIUM reported incorrectly as 9.3 by [[id number]]. Changed to canc on Oct 14, 2024@15:47 by [[id number]]. CHOLESTEROL reported incorrectly as 247 by [[id number]]. Changed to canc on Oct 14, 2024@15:47 by [[id number]]. CHOLESTEROL flagged incorrectly as H by [[id number]]. Abnormal flag removed on Oct 14, 2024@15:47 by [[id number]]. PROTEIN,TOTAL reported incorrectly as 7.9 by [[id number]]. Changed to canc on Oct 14, 2024@15:47 by [[id number]]. ALBUMIN reported incorrectly as 4.7 by [[id number]]. Changed to canc on Oct 14, 2024@15:47 by [[id number]]. ALBUMIN flagged incorrectly as H by [[id number]]. Abnormal flag removed on Oct 14, 2024@15:47 by [[id number]]. ALKALINE PHOSPHATASE reported incorrectly as 229 by [[id number]]. Changed to canc on Oct 14, 2024@15:47 by [[id number]]. ALKALINE PHOSPHATASE flagged incorrectly as H by [[id number]]. Abnormal flag removed on Oct 14, 2024@15:47 by [[id number]]. AST reported incorrectly as 209 by [[id number]]. Changed to canc on Oct 14, 2024@15:47 by [[id number]]. AST flagged incorrectly as H by [[id number]]. Abnormal flag removed on Oct 14, 2024@:47 by [[id number]]. ALT reported incorrectly as 86 by [[id number]]. Changed to canc on Oct 14, 2024@15:47 by [[id number]]. ALT flagged incorrectly as H by [[id number]]. Abnormal flag removed on Oct 14, 2024@:47 by [[id number]]. TRIGLYCERIDE reported incorrectly as 232 by [[id number]]. Changed to canc on Oct 14, 2024@15:47 by [[id number]]. TRIGLYCERIDE flagged incorrectly as H by [[id number]]. Abnormal flag removed on Oct 14, 2024@15:47 by [[id number]]. LDL calculated reported incorrectly as 166 by [[id number]]. Changed to canc on Oct 14, 2024@15:47 by [[id number]]. LDL calculated flagged incorrectly as H by [[id number]]. Abnormal flag removed on Oct 14, 2024@15:47 by [[id number]]. HDL CHOLESTEROL reported incorrectly as 35 by [[id number]]. Changed to canc on Oct 14, 2024@15:47 by [[id number]]. HDL CHOLESTEROL flagged incorrectly as L by [[id number]]. Abnormal flag removed on Oct 14, 2024@15:47 by [[id number]]. BILIRUBIN, TOTAL reported incorrectly as 0.9 by [[id number]-[id number]]. Changed to canc on Oct 14, 2024@15:47 by [[id number]]. CREATININE, Serum reported incorrectly as 0.53 by [[id number]]. Changed to canc on Oct 14, 2024@15:47 by [[id number]]. CREATININE, Serum flagged incorrectly as L by [[id number]]. Abnormal flag removed on Oct 14, 2024@15:47 by [[id number]]. eGFR(CKD-EPI 2020) reported incorrectly as >90 by [[id number]]. Changed to canc on Oct 14, 2024@15:47 by [[id number]]. Ordering Provider: TICO JENSEN Report Released Date/Time: Sep 11, 2024 03:56 PM Reporting Lab: [facility] [employer] [address] Performing Lab: [facility] [employer] [address] CHOLESTEROL canc mg/dL H TRIGLYCERIDE canc mg/dL H 0-150 LDL calculated canc mg/dL H 0-129 HDL CHOLESTEROL canc mg/dL L >40 CHOL/HDL canc Oct 13, 2024 02:55 PM [facility] CBC BLOOD Specimen Type: BLOOD Comment: Spoke with Dante Oswaldlivan 10/14/24 @ 9711 regarding misindentification of patient. Results canceled. LJ WBC reported incorrectly as 10.61 by [[id number]]. Changed to canc on Oct 14, 2024@15:45 by [[id number]]. RBC reported incorrectly as 3.35 by [[id number]-[id number]]. Changed to canc on Oct 14, 2024@15:45 by [[id number]]. RBC flagged incorrectly as L by [[id number]]. Abnormal flag removed on Oct 14, 2024@15:45 by [[id number]]. HGB reported incorrectly as 13.1 by [[id number]-[id number]]. Changed to canc on Oct 14, 2024@15:45 by [[id number]]. HCT reported incorrectly as 36.7 by [[id number]-[id number]]. Changed to canc on Oct 14, 2024@15:45 by [[id number]-[id number]]. HCT flagged incorrectly as L by [[id number]-[id number]]. Abnormal flag removed on Oct 14, 2024@15:45 by [[id number]-[id number]]. MCV reported incorrectly as 109.6 by [[id number]]. Changed to canc on Oct 14, 2024@15:45 by [[id number]]. MCV flagged incorrectly as H by [[id number]]. Abnormal flag removed on Oct 14, 2024@15:45 by [[id number]]. MCHC reported incorrectly as 35.7 by [[id number]]. Changed to canc on Oct 14, 2024@15:45 by [[id number]]. MCHC flagged incorrectly as H by [[id number]]. Abnormal flag removed on Oct 14, 2024@15:45 by [[id number]]. RDW-CV reported incorrectly as 13.4 by [[id number]]. Changed to canc on Oct 14, 2024@15:45 by [[id number]]. PLT reported incorrectly as 291 by [[id number]-[id number]]. Changed to canc on Oct 14, 2024@15:45 by [[id number]-[id number]]. MPV reported incorrectly as 10.3 by [[id number]]. Changed to canc on Oct 14, 2024@15:45 by [[id number]]. MCH reported incorrectly as 39.1 by [[id number]]. Changed to canc on Oct 14, 2024@15:45 by [[id number]]. MCH flagged incorrectly as H by [[id number]]. Abnormal flag removed on Oct 14, 2024@15:45 by [[id number]]. Ordering Provider: TICO JENSEN Report Released Date/Time: Sep 11, 2024 03:56 PM Reporting Lab: [address] [address] Performing Lab: [facility] [address] [facility] [address] WBC canc 10*3/uL 4.50-11.00 RBC canc 10*6/uL L 4.23-5.66 HGB canc g/dL 12.8-17 HCT canc L 39.2-50.4 MCV canc fL H 82-99 MCHC canc g/dL H 30.8-35.1 PLT canc 10*3/uL 140-360 MPV canc fL 9.2-12.4 RDW-CV canc 12.0-16.0 MCH canc pg H 26.2-32.6 Oct 13, 2024 02:55 PM [facility] BASIC METABOLIC PANEL (non-fasting) SERUM Spe cimen Type: SERUM Comment: GLUCOSE reported incorrectly as 116 by [[id number]]. Changed to canc on Oct 14, 2024@15:47 by [[id number]]. GLUCOSE flagged incorrectly as H by [[id number]]. Abnormal flag removed on Oct 14, 2024@15:47 by [[id number]]. UREA NITROGEN reported incorrectly as 4 by [[id number]]. Changed to canc on Oct 14, 2024@15:47 by [[id number]]. UREA NITROGEN flagged incorrectly as L by [[id number]]. Abnormal flag removed on Oct 14, 2024@15:47 by [[id number]]. SODIUM reported incorrectly as 136 by [[id number]]. Changed to canc on Oct 14, 2024@15:47 by [[id number]]. POTASSIUM reported incorrectly as 3.4 by [[id number]-TX707]. Changed to canc on Oct 14, 2024@15:47 by [[id number]]. POTASSIUM flagged incorrectly as L by [[id number]]. Abnormal flag removed on Oct 14, 2024@15:47 by [[id number]]. CHLORIDE reported incorrectly as 95 by [[id number]]. Changed to canc on Oct 14, 2024@15:47 by [[id number]]. CHLORIDE flagged incorrectly as L by [[id number]]. Abnormal flag removed on Oct 14, 2024@15:47 by [[id number]]. CO2 reported incorrectly as 26 by [[id number]]. Changed to canc on Oct 14, 2024@15:47 by [[id number]]. CALCIUM reported incorrectly as 9.3 by [[id number]-[id number]]. Changed to canc on Oct 14, 2024@15:47 by [[id number]-[id number]]. CHOLESTEROL reported incorrectly as 247 by [[id number]]. Changed to canc on Oct 14, 2024@15:47 by [[id number]]. CHOLESTEROL flagged incorrectly as H by [[id number]]. Abnormal flag removed on Oct 14, 2024@15:47 by [[id number]]. PROTEIN,TOTAL reported incorrectly as 7.9 by [[id number]]. Changed to canc on Oct 14, 2024@15:47 by [[id number]]. ALBUMIN reported incorrectly as 4.7 by [[id number]-[id number]]. Changed to canc on Oct 14, 2024@15:47 by [[id number]]. ALBUMIN flagged incorrectly as H by [[id number]]. Abnormal flag removed on Oct 14, 2024@15:47 by [[id number]-[id number]]. ALKALINE PHOSPHATASE reported incorrectly as 229 by [[id number]]. Changed to canc on Oct 14, 2024@15:47 by [[id number]]. ALKALINE PHOSPHATASE flagged incorrectly as H by [[id number]]. Abnormal flag removed on Oct 14, 2024@15:47 by [[id number]]. AST reported incorrectly as 209 by [[id number]]. Changed to canc on Oct 14, 2024@15:47 by [[id number]]. AST flagged incorrectly as H by [[id number]]. Abnormal flag removed on Oct 14, 2024@15:47 by [[id number]-[id number]]. ALT reported incorrectly as 86 by [[id number]]. Changed to canc on Oct 14, 2024@15:47 by [940551-[id number]]. ALT flagged incorrectly as H by [[id number]-[id number]]. Abnormal flag removed on Oct 14, 2024@15:47 by [[id number]]. TRIGLYCERIDE reported incorrectly as 232 by [[id number]]. Changed to canc on Oct 14, 2024@15:47 by [[id number]-[id number]]. TRIGLYCERIDE flagged incorrectly as H by [[id number]]. Abnormal flag removed on Oct 14, 2024@15:47 by [[id number]]. LDL calculated reported incorrectly as 166 by [[id number]-AQ732]. Changed to canc on Oct 14, 2024@15:47 by [[id number]-[id number]]. LDL calculated flagged incorrectly as H by [[id number]]. Abnormal flag removed on Oct 14, 2024@15:47 by [[id number]-[id number]]. HDL CHOLESTEROL reported incorrectly as 35 by [[id number]-[id number]]. Changed to canc on Oct 14, 2024@15:47 by [[id number]-[id number]]. HDL CHOLESTEROL flagged incorrectly as L by [[id number]]. Abnormal flag removed on Oct 14, 2024@15:47 by [[id number]]. BILIRUBIN, TOTAL reported incorrectly as 0.9 by [[id number]-[id number]]. Changed to canc on Oct 14, 2024@15:47 by [[id number]]. CREATININE, Serum reported incorrectly as 0.53 by [[id number]-[id number]]. Changed to canc on Oct 14, 2024@15:47 by [[id number]]. CREATININE, Serum flagged incorrectly as L by [[id number]]. Abnormal flag removed on Oct 14, 2024@15:47 by [[id number]]. eGFR(CKD-EPI 2020) reported incorrectly as >90 by [[id number]-[id number]]. Changed to canc on Oct 14, 2024@15:47 by [[id number]]. Ordering Provider: TICO JENSEN Report Released Date/Time: Sep 11, 2024 03:56 PM Reporting Lab: [facility] [address] [facility] [address] Performing Lab: [facility] [address] [facility] [address] UREA NITROGEN canc mg/dL L 8-26 GLUCOSE canc mg/dL H 65-100 SODIUM canc mmol/L 136-145 POTASSIUM canc mmol/L L 3.5-5.1 CHLORIDE canc mmol/L L 98-107 CO2 canc meq/L 23-31 CALCIUM canc mg/dL 8.8-10 CREATININE, Serum canc mg/dL L 0.72-1.25 eGFR(CKD-EPI 2020) canc mL/min >60 Oct 13, 2024 02:55 PM [facility] LIVER FUNCTION SERUM Specimen Type: SERUM Comment: GLUCOSE reported incorrectly as 116 by [[id number]]. Changed to canc on Oct 14, 2024@15:47 by [[id number]]. GLUCOSE flagged incorrectly as H by [[id number]-[id number]]. Abnormal flag removed on Oct 14, 2024@15:47 by [[id number]]. UREA NITROGEN reported incorrectly as 4 by [[id number]]. Changed to canc on Oct 14, 2024@15:47 by [[id number]]. UREA NITROGEN flagged incorrectly as L by [[id number]]. Abnormal flag removed on Oct 14, 2024@15:47 by [[id number]-[id number]]. SODIUM reported incorrectly as 136 by [[id number]]. Changed to canc on Oct 14, 2024@15:47 by [[id number]]. POTASSIUM reported incorrectly as 3.4 by [978552-GE703]. Changed to canc on Oct 14, 2024@15:47 by [[id number]]. POTASSIUM flagged incorrectly as L by [[id number]-[id number]]. Abnormal flag removed on Oct 14, 2024@15:47 by [[id number]-[id number]]. CHLORIDE reported incorrectly as 95 by [[id number]]. Changed to canc on Oct 14, 2024@15:47 by [[id number]-[id number]]. CHLORIDE flagged incorrectly as L by [[id number]]. Abnormal flag removed on Oct 14, 2024@15:47 by [[id number]]. CO2 reported incorrectly as 26 by [[id number]]. Changed to canc on Oct 14, 2024@15:47 by [[id number]-[id number]]. CALCIUM reported incorrectly as 9.3 by [[id number]-[id number]]. Changed to canc on Oct 14, 2024@15:47 by [[id number]]. CHOLESTEROL reported incorrectly as 247 by [[id number]]. Changed to canc on Oct 14, 2024@15:47 by [[id number]]. CHOLESTEROL flagged incorrectly as H by [[id number]]. Abnormal flag removed on Oct 14, 2024@15:47 by [[id number]]. PROTEIN,TOTAL reported incorrectly as 7.9 by [[id number]]. Changed to canc on Oct 14, 2024@15:47 by [[id number]]. ALBUMIN reported incorrectly as 4.7 by [[id number]-[id number]]. Changed to canc on Oct 14, 2024@15:47 by [[id number]]. ALBUMIN flagged incorrectly as H by [[id number]-[id number]]. Abnormal flag removed on Oct 14, 2024@15:47 by [[id number]]. ALKALINE PHOSPHATASE reported incorrectly as 229 by [[id number]-[id number]]. Changed to canc on Oct 14, 2024@15:47 by [[id number]]. ALKALINE PHOSPHATASE flagged incorrectly as H by [[id number]]. Abnormal flag removed on Oct 14, 2024@15:47 by [[id number]]. AST reported incorrectly as 209 by [[id number]]. Changed to canc on Oct 14, 2024@15:47 by [[id number]]. AST flagged incorrectly as H by [[id number]]. Abnormal flag removed on Oct 14, 2024@15:47 by [840395-[id number]]. ALT reported incorrectly as 86 by [[id number]]. Changed to canc on Oct 14, 2024@15:47 by [[id number]]. ALT flagged incorrectly as H by [[id number]-[id number]]. Abnormal flag removed on Oct 14, 2024@15:47 by [[id number]]. TRIGLYCERIDE reported incorrectly as 232 by [[id number]]. Changed to canc on Oct 14, 2024@15:47 by [[id number]]. TRIGLYCERIDE flagged incorrectly as H by [[id number]]. Abnormal flag removed on Oct 14, 2024@15:47 by [[id number]-[id number]]. LDL calculated reported incorrectly as 166 by [[id number]]. Changed to canc on Oct 14, 2024@15:47 by [581408-[id number]]. LDL calculated flagged incorrectly as H by [[id number]]. Abnormal flag removed on Oct 14, 2024@15:47 by [[id number]-[id number]]. HDL CHOLESTEROL reported incorrectly as 35 by [[id number]-[id number]]. Changed to canc on Oct 14, 2024@15:47 by [[id number]]. HDL CHOLESTEROL flagged incorrectly as L by [[id number]-[id number]]. Abnormal flag removed on Oct 14, 2024@15:47 by [[id number]]. BILIRUBIN, TOTAL reported incorrectly as 0.9 by [355406-ML398]. Changed to canc on Oct 14, 2024@15:47 by [[id number]]. CREATININE, Serum reported incorrectly as 0.53 by [[id number]-[id number]]. Changed to canc on Oct 14, 2024@15:47 by [[id number]]. CREATININE, Serum flagged incorrectly as L by [[id number]-[id number]]. Abnormal flag removed on Oct 14, 2024@15:47 by [[id number]]. eGFR(CKD-EPI 2020) reported incorrectly as >90 by [[id number]]. Changed to canc on Oct 14, 2024@15:47 by [[id number]]. Ordering Provider: TICO JENSEN Report Released Date/Time: Sep 11, 2024 03:56 PM Reporting Lab: [address] [address] Performing Lab: [address] [address] PROTEIN,TOTAL canc g/dL 6.4-8.3 ALBUMIN canc g/dL H 3.2-4.6 ALKALINE PHOSPHATASE canc U/L H 40-150 AST canc U/L H 5-34 ALT canc U/L H 0-55 BILIRUBIN, TOTAL canc mg/dL 0.2-1.2 Social History: Smoking Status (Most current) and Tobacco Use (All prior to encounter date) This section includes the most current, and the historical, smoking and tobacco- related health factors from the [place] facility where the Encounter took place. Current Smoking Status This section includes the most current smoking, or tobacco-related health factor, from the [place] facility where the Encounter took place. Date/Time Current Smoking Status Comment Perfecto meraz Jul 03, 2024 11:30 AM [place]-TOBACCO NEVER U SED CIGARETTES [facility] [place] [facility] Tobacco Use History This section includes a history of the smoking, or tobacco-related health factors, that were collected on or before the date of the Encounter. The data comes from the [place] facility where the Encounter took place. Date/Time Smoking Status/Tobacco Use Comment F acility Jul 03, 2024 11:30 AM VA-TOBACCO NEVER U SED OTHER TYPE [facility] [place] [facility] Jun 05, 2023 03:30 PM VA-TOBACCO NEVER USED [facility] [place] [facility] May 17, 2022 09:00 AM VA-TOBACCO DOESNT USE WI 30 MIN WAKEUP [facility] [place] [facility] May 17, 2022 09:00 AM VA-TOBACCO USE > 1 5 LESS THAN 30 YEARS [facility] [place] [facility] May 17, 2022 09:00 AM VA-TOBACCO USE ADVICE [facility] [place] [facility] May 17, 2022 09:00 AM 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 [facility] [place] [facility] May 17, 2022 09:00 AM VA-TOBACCO USE MED NO [facility] [place] [facility] May 17, 2022 09:00 AM VA-TOBACCO USER EVERY DAY [facility] [place] [facility] Mar 17, 2021 08:00 AM VA-TOBACCO DOESNT USE WI 30 MIN WAKEUP [facility] [place] [facility] Mar 17, 2021 08:00 AM VA-TOBACCO USE 30 YEARS OR MORE [facility] [place] [facility] Mar 17, 2021 08:00 AM VA-TOBACCO USE ADVICE [facility] [place] [facility] Mar 17, 2021 08:00 AM 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 [facility] [place] [facility] Mar 17, 2021 08:00 AM VA-TOBACCO USE MED NO [facility] [place] [facility] Mar 17, 2021 08:00 AM VA-TOBACCO USER EVERY DAY [facility] [place] [facility] Sep 25, 2019 01:42 PM VA-TOBACCO DOESNT USE WI 30 MIN WAKEUP [facility] [place] [facility] Sep 25, 2019 01:42 PM VA-TOBACCO USE 30 YEARS OR MORE [facility] [place] [facility] Sep 25, 2019 01:42 PM VA-TOBACCO USE ADVICE [facility] [place] [facility] Sep 25, 2019 01:42 PM 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 [facility] [place] [facility] Sep 25, 2019 01:42 PM VA-TOBACCO USE MED NO [facility] [place] [facility] Sep 25, 2019 01:42 PM VA-TOBACCO USER EVERY DAY [facility] [place] [facility] Jun 19, 2018 12:39 PM VA-TOBACCO DOESNT USE WI 30 MIN WAKEUP [facility] [place] [facility] Jun 19, 2018 12:39 PM VA-TOBACCO USE > 1 5 LESS THAN 30 YEARS [facility] [place] [facility] Jun 19, 2018 12:39 PM VA-TOBACCO USE ADVICE [facility] [place] [facility] Jun 19, 2018 12:39 PM 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 [facility] [place] [facility] Jun 19, 2018 12:39 PM VA-TOBACCO USE MED NO [facility] [place] [facility] Jun 19, 2018 12:39 PM VA-TOBACCO USER EVERY DAY [facility] [place] [facility] May 08, 2017 10:41 AM CURRENT SMOKER cigars [facility] [place] [facility] Apr 14, 2016 09:10 AM CURRENT SMOKER [facility] [place] [facility] Apr 14, 2016 09:10 AM V1-PT NOT INTEREST ED IN QUIT TOBACCO USE [facility] [place] [facility] Encounter Notes: All associated encounter notes This section contains the clinical notes associated to the Encounter. Date/Time Encounter Note(s) Provider Source November 11, 2024 11:46 AM NONVA NOTE: LOCAL TITLE: COMMUNITY CARE-REQUEST FOR SERVICE NOTE STANDARD TITLE: NONVA NOTE DATE OF NOTE: NOVEMBER 11, 2024@11:46 ENTRY DATE: NOVEMBER 11, 2024@11:46:21 AUTHOR: MARY JOHNSON COSIGNER: URGENCY: STATUS: COMPLETED COMMUNITY CARE-REQUEST FOR SERVICE NOTE Has ADDENDA Request for Services (RFS) documentation has been sent for scanning to [employer] Community Care Consult: COMMUNITY CARE-Urology Consult No: c Date sent to scanning: October A Request for Service (RFS) form [id number] has been received which includes the following: Care Requested: Continuation of Care for E.D ICD-10 Dx code: E.D N52.9 Date [facility] received request: October Date service required: October - Visit 10 Requesting Community Provider Information: Name of Ordering Provider: [facility] Office:[facility] Address, City, State: [address] [place] [address] [place] [place] [address] If in agreement to services, please place consult. /melida/ MARY JOHNSON, RN, BSN REGISTERED NURSE Signed: 11/11/2024 11:49 Receipt Acknowledged By: 11/11/2024 15:05 /melida/ Tico Jensen DNP, BANJO REPAIRER-BC, CNL Primary Care Nurse Practitioner 11/11/2024 15:04 /melida/ KYRA SHEARER MSN, RN, CNL Primary Care RN 11/11/2024 ADDENDUM STATUS: COMPLETED Entered HFS by PCP /melida/ KYRA SHEARER MSN, RN, CNL Primary Care RN Signed: 11/11/2024 15:05 [facility]NSON [facility]
--- OUTSIDE RECORDS SUMMARY | 2025-02-17 06:33 | XMS_ITS | Continuity of Care Document ---
Author Name [facility] Organization 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 Unavailable Unavailable Problems Combined list of problems from Department of Defense and Veterans Affairs facilities. It does not include entries that were removed or entered in error. Problem Status Onset Date Problem Type Date of Resolution Comments Source Bilateral carpal tunnel syndrome Active Condition [facility] Erectile dysfunction (SNOMED CT 786789252) Active Condition [facility] History of malignant melanoma Active Condition Apr 14, 2016 Entered By: ELIAS CAMPOS Comment: -- resected 2000; followed by Dr. 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 [facility] Insomnia Active Condition [facility] Lumbar radiculopathy Active Condition [facility] Overweight Active Condition [facility] Prediabetes Active Condition May 08, 2017 Entered By: GURINDER BECK Comment: Glucose 122 fasting April 14 2017 .Diet ,reeval labs [facility] Shared care - spa consultant and GP Active Condition Aug 06 Entered By: CHERYL YORK Comment: New derick derm [facility] Tobacco use Active Condition [facility] Obesity Inactive Condition 08/06/2018 May 08 017 Entered By: GURINDER BECK Comment: aware about weigth . [facility] Diagnosis: ICD-10-CM N52.9 Male erectile dysfunction, unspecified Active Diagnosis [facility] Diagnosis: ICD-10-CM Z71.2 Person consulting for explanation of exam or test findings Active Diagnosis [facility] Diagnosis: ICD-10-CM E78.5 Hyperlipidemia, unspecified Active Diagnosis [facility] Diagnosis: ICD-10-CM Z85.820 Personal history of malignant melanoma of skin Active Diagnosis [facility] Medications Combined list of outpatient medications from Department of Defense and [facility] facilities.Medications provided include 1) outpatient medications from the last 15 months, and 2) patient-reported medications. Medication Details Route Status Patient Instructions Prescription Expires Prescription Number Last Dispense Date Ordering Provider Order Date Order Qty Source ATORVASTATI N CA 40MG TAB TAKE ONE-HALF TABLET BY MOUTH ONCE DAILY FOR HIGH CHOLESTE ROL ORAL ACTIVE 07/29/2025 [id number] ANTONINA JENSEN 2024 45 [facility] BISACODYL 5MG TAB,EC TAKE FOUR TABLETS BY MOUTH ONCE FOR BOWELS - LAXATIVE ORAL 09/12/2024 [id number] TRIXIE BLACK 2024 4 [facility] LOSARTAN 50MG TAB TAKE ONE TABLET BY MOUTH ONCE DAILY FOR BLOOD PRESSURE /HEART ORAL ACTIVE 07/01/2025 [id number] 5 ANTONINA JENSEN 2024 90 [facility] [place] 50MG TAB TAKE ONE TABLET BY MOUTH ONCE DAILY FOR BLOOD PRESSURE /HEART ORAL DISCONT INUED 09/04/2024 [id number] 4 JONI YORK AMLARS JAWED 2023 90 [facility] PEG-3350/EL ECTROLYTES PWDR TAKE CONTENTS OF BOTTLE BY MOUTH DIRECTED BY PROVIDER DELROY Bates TO INSTRUCT IONS FROM PRESCRIB ER - DISSOLVE CONTENTS BEFORE DRINKING ORAL 09/12/2024 [id number] TRIXIE BLACK R 2024 1 [facility] SILDENAFIL CITRATE 100MG TAB TAKE ONE TABLET BY MOUTH ONCE DAILY NEEDED FOR ERECTILE DYSFUNCT ION TAKE 1 HOUR PRIOR TO SEXUAL ACTIVITY ORAL DISCONT INUED BY PROVIDE R 03/25/2025 [id number] 4 ANTONINA JENSEN 2023 18 [facility] SILDENAFIL CITRATE 100MG TAB TAKE ONE TABLET BY MOUTH ONCE DAILY NEEDED TAKE 1 HOUR PRIOR TO SEXUAL ACTIVITY ORAL DISCONT INUED (EDIT) 06/18/2024 [id number] 4 DEBORAH GIBSON 2023 6 [facility] SILDENAFIL CITRATE 100MG TAB TAKE ONE TABLET BY MOUTH ONCE DAILY NEEDED TAKE 1 HOUR PRIOR TO SEXUAL ACTIVITY ORAL DISCONT INUED 03/09/2024 [id number] 4 JONI YORK JAWED 2022 6 [facility] TADALAFIL 10MG TAB TAKE ONE TABLET BY MOUTH ONCE DAILY NEEDED FOR ERECTILE DYSFUNCT ION ORAL DISCONT INUED 07/09/2025 [id number] 5 ANTONINA JENSEN 2024 18 [facility] TADALAFIL 20MG TAB TAKE ONE TABLET BY MOUTH ONCE DAILY NEEDED ORAL 02/12/2025 [id number] 5 MICAELA MICHAELS MD 2024 18 [facility] TRAZODONE HCL 100MG TAB TAKE ONE AND ONE-HALF TABLETS BY MOUTH AT BEDTIME FOR INSOMNIA ASSOCIAT ED WITH DEPRESSI ON FOR INSOMNIA ORAL ACTIVE 07/01/2025 [id number] 5 ANTONINA JENSEN 2024 45 [facility] UREA 10% LOTION APPLY SMALL AMOUNT TOPICALL Y TWICE DAILY FOR THICKENE D OUTER LAYER OF SKIN *FOR EXTERNAL USE ONLY* TOPICA L 02/05/2025 [id number] PATIENCE SALAZAR 2023 480 [facility] Allergies, Adverse Reactions, Alerts Combined list of allergies from Department of Defense and Veterans Affairs facilities. It does not include entries that were removed or entered in error. Substance Category Reaction Severity Reaction type Status Date Reported Comments Source PENICILLIN Propensity to adverse reactions to drug (finding) Eruption active 6 [facility] Immunizations Combined list of available immunizations from the Department of Defense and Veterans Affairs facilities. Immunization Series Date Given Administered By Site Reaction Lot Number CVX Code Drug Equipment Application Specialist Status Comments Source COVID-19 (MODERNA), MRNA, LNP-S, PF, 50 MCG/0.5 ML (AGES 12+ YEARS) 6 2023 STALIN VAUGHN RIGHT DELTO ID [id number] 312 complet ed [facility] INFLUENZA, HIGH-DOSE, TRIVALENT, PF 2023 STALIN VAUGHN LEFT DELTO ID [id number] 135 complet ed Completed Series, [facility] COVID-19 (MODERNA), MRNA, LNP-S, PF, 50 MCG/0.5 ML (AGES 12+ YEARS) 5 2022 YEIMY MARQUEZ LEFT DELTO ID [id number] 312 complet ed [facility] AT [facility] INFLUENZA, HIGH-DOSE, QUADRIVALENT 2022 YEIMY MARQUEZ RIGHT DELTO ID [id number] 197 complet ed Completed Series, [facility] INFLUENZA, UNSPECIFIED FORMULATION 2021 88 complet ed Completed Series, HISTORICA L INFORMATI ON - FROM OTHER REGISTRY, [facility] COVID-19 (MODERNA), MRNA, LNP-S, PF, 100 MCG/0.5ML DOSE OR 50 MCG/0.25ML DOSE 3 2021 207 complet ed MOD; [id number] ; 2 [facility] COVID-19 (MODERNA), MRNA, LNP-S, PF, 100 MCG OR 50 MCG DOSE 3 2020 207 complet ed MOD; [id number]; 2 [facility] INFLUENZA VACCINE, QUADRIVALENT, ADJUVANTED 2020 205 complet ed [facility] PNEUMOCOCCAL POLYSACCHARID E PPV23 2020 33 complet ed [facility] COVID-19 (MODERNA), MRNA, LNP-S, PF, 100 MCG/0.5 ML DOSE 2 2020 207 complet ed MOD; [id number]; 1 [facility] COVID-19 (MODERNA), MRNA, LNP-S, PF, 100 MCG/0.5 ML DOSE 1 2020 207 complet ed MOD; [id number]; 1 [facility] INFLUENZA, INJECTABLE, QUADRIVALENT, PRESERVATIVE FREE 2020 150 complet ed [facility] INFLUENZA, SEASONAL, INJECTABLE 2017 141 complet ed [facility] INFLUENZA, SEASONAL, INJECTABLE 2016 141 complet ed Site: Right Deltoid [facility] FLU,3 YRS (HISTORICAL) 2015 88 complet ed Site: Left Deltoid [facility] ZOSTER (HISTORICAL) 2013 121 complet ed community PCP [facility] DTAP, UNSPECIFIED FORMULATION 2011 107 complet ed community pcp [facility] Results Combined list of recent chemistry, hematology and other laboratory results from Department of Defense and Veterans Affairs, ranging from 15 months to all on record, depending upon the facility. Order Name Results Value Reference Range Date Interpretation Specimen Comments Source LIPID PANEL, NON FASTING CHOLESTERO L [MASS/VOLU ME] IN SERUM OR PLASMA cancmg/d L 10/13 H Specimen Type: SERUM Comment: GLUCOSE reported incorrectly as 116 by [[id number] 31]. Changed to canc on Oct 14, 2024@15:47 by [[id number] 31]. GLUCOSE flagged incorrectly as H by [[id number] 31]. Abnormal flag removed on Oct 14, 2024@15:47 by [[id number] 31]. UREA NITROGEN reported incorrectly as 4 by [[id number] 31]. Changed to canc on Oct 14, 2024@15:47 by [[id number]-[id number] 31]. UREA NITROGEN flagged incorrectly as L by [[id number] 31]. Abnormal flag removed on Oct 14, 2024@15:47 by [[id number] 31]. SODIUM reported incorrectly as 136 by [[id number]-[id number] 31]. Changed to canc on Oct 14, 2024@15:47 by [[id number] 31]. POTASSIUM reported incorrectly as 3.4 by [[id number] 31]. Changed to canc on Oct 14, 2024@15:47 by [[id number] 31]. POTASSIUM flagged incorrectly as L by [[id number]-[id number] 31]. Abnormal flag removed on Oct 14, 2024@15:47 by [[id number]-[id number] 31]. CHLORIDE reported incorrectly as 95 by [[id number]-[id number] 31]. Changed to canc on Oct 14, 2024@15:47 by [[id number]-[id number] 31]. CHLORIDE flagged incorrectly as L by [[id number]-[id number] 31]. Abnormal flag removed on Oct 14, 2024@15:47 by [[id number] 31]. CO2 reported incorrectly as 26 by [[id number]-[id number] 31]. Changed to canc on Oct 14, 2024@15:47 by [[id number]-[id number] 31]. CALCIUM reported incorrectly as 9.3 by [401876-[id number] 31]. Changed to canc on Oct 14, 2024@15:47 by [[id number] 31]. CHOLESTEROL reported incorrectly as 247 by [[id number] 31]. Changed to canc on Oct 14, 2024@15:47 by [[id number]-[id number] 31]. CHOLESTEROL flagged incorrectly as H by [[id number]-[id number] 31]. Abnormal flag removed on Oct 14, 2024@15:47 by [[id number] 31]. PROTEIN,TOT AL reported incorrectly as 7.9 by [214751-QI6 31]. Changed to canc on Oct 14, 2024@15:47 by [[id number]-[id number] 31]. ALBUMIN reported incorrectly as 4.7 by [[id number]-[id number] 31]. Changed to canc on Oct 14, 2024@15:47 by [[id number]-[id number] 31]. ALBUMIN flagged incorrectly as H by [[id number]-WS1 31]. Abnormal flag removed on Oct 14, 2024@15:47 by [534846-YD3 31]. ALKALINE PHOSPHATASE reported incorrectly as 229 by [[id number]-[id number] 31]. Changed to canc on Oct 14, 2024@15:47 by [880379-DG1 31]. ALKALINE PHOSPHATASE flagged incorrectly as H by [[id number]-[id number] 31]. Abnormal flag removed on Oct 14, 2024@:47 by [[id number]-[id number] 31]. AST reported incorrectly as 209 by [[id number]-TE8 31]. Changed to canc on Oct 14, 2024@15:47 by [047176-TH8 31]. AST flagged incorrectly as H by [367055-LJ1 31]. Abnormal flag removed on Oct 14, 2024@15:47 by [[id number]-[id number] 31]. ALT reported incorrectly as 86 by [[id number]-[id number] 31]. Changed to canc on Oct 14, 2024@15:47 by [[id number]-[id number] 31]. ALT flagged incorrectly as H by [608203-IM9 31]. Abnormal flag removed on Oct 14, 2024@15:47 by [[id number]-[id number] 31]. TRIGLYCERID E reported incorrectly as 232 by [497644-EL5 31]. Changed to canc on Oct 14, 2024@15:47 by [321121-TI1 31]. TRIGLYCERID E flagged incorrectly as H by [[id number]-[id number] 31]. Abnormal flag removed on Oct 14, 2024@15:47 by [[id number]-[id number] 31]. LDL calculated reported incorrectly as 166 by [[id number]-[id number] 31]. Changed to canc on Oct 14, 2024@15:47 by [728991-GQ4 31]. LDL calculated flagged incorrectly as H by [067687-FH4 31]. Abnormal flag removed on Oct 14, 2024@15:47 by [511551-SN8 31]. HDL CHOLESTEROL reported incorrectly as 35 by [[id number]-RO3 31]. Changed to canc on Oct 14, 2024@15:47 by [[id number]-WC0 31]. HDL CHOLESTEROL flagged incorrectly as L by [[id number]-UF0 31]. Abnormal flag removed on Oct 14, 2024@15:47 by [[id number]-[id number] 31]. BILIRUBIN, TOTAL reported incorrectly as 0.9 by [955459-CV9 31]. Changed to canc on Oct 14, 2024@15:47 by [[id number]-EL9 31]. CREATININE, Serum reported incorrectly as 0.53 by [871994-IR5 31]. Changed to canc on Oct 14, 2024@15:47 by [584559-YH9 31]. CREATININE, Serum flagged incorrectly as L by [[id number]-DJ8 31]. Abnormal flag removed on Oct 14, 2024@15:47 by [717871-[id number] 31]. eGFR(CKD-EP I 2020) reported incorrectly as >90 by [[id number]-TO5 31]. Changed to canc on Oct 14, 2024@15:47 by [[id number]-[id number] 31]. Ordering Provider: DELORES JENSEN Report Released Date/Time: Sep 11, 2024 03:56 PM Reporting Lab: [facility] [address] [address] Performing Lab: [facility] [address] [address] [facility] LIPID PANEL, NON FASTING TRIGLYCERI DE [MASS/VOLU ME] IN SERUM OR PLASMA cancmg/d L 0 - 150 10/13 H Specimen Type: SERUM Comment: GLUCOSE reported incorrectly as 116 by [[id number] 31]. Changed to canc on Oct 14, 2024@15:47 by [266291-[id number] 31]. GLUCOSE flagged incorrectly as H by [[id number] 31]. Abnormal flag removed on Oct 14, 2024@15:47 by [[id number]-[id number] 31]. UREA NITROGEN reported incorrectly as 4 by [372924-XT3 31]. Changed to canc on Oct 14, 2024@15:47 by [[id number]-[id number] 31]. UREA NITROGEN flagged incorrectly as L by [[id number]-VZ2 31]. Abnormal flag removed on Oct 14, 2024@15:47 by [[id number]-[id number] 31]. SODIUM reported incorrectly as 136 by [[id number]-[id number] 31]. Changed to canc on Oct 14, 2024@15:47 by [[id number]-[id number] 31]. POTASSIUM reported incorrectly as 3.4 by [704798-ZL0 31]. Changed to canc on Oct 14, 2024@15:47 by [[id number]-[id number] 31]. POTASSIUM flagged incorrectly as L by [[id number]-WM9 31]. Abnormal flag removed on Oct 14, 2024@15:47 by [891158-KP8 31]. CHLORIDE reported incorrectly as 95 by [077124-BY9 31]. Changed to canc on Oct 14, 2024@15:47 by [184190-JH1 31]. CHLORIDE flagged incorrectly as L by [065333-KW6 31]. Abnormal flag removed on Oct 14, 2024@15:47 by [311019-ST0 31]. CO2 reported incorrectly as 26 by [019233-CP7 31]. Changed to canc on Oct 14, 2024@15:47 by [[id number]-HD6 31]. CALCIUM reported incorrectly as 9.3 by [085143-GK1 31]. Changed to canc on Oct 14, 2024@15:47 by [197655-[id number] 31]. CHOLESTEROL reported incorrectly as 247 by [[id number]-[id number] 31]. Changed to canc on Oct 14, 2024@15:47 by [[id number]-[id number] 31]. CHOLESTEROL flagged incorrectly as H by [757113-OK2 31]. Abnormal flag removed on Oct 14, 2024@15:47 by [300780-BQ8 31]. PROTEIN,TOT AL reported incorrectly as 7.9 by [942667-OM2 31]. Changed to canc on Oct 14, 2024@15:47 by [195635-KH5 31]. ALBUMIN reported incorrectly as 4.7 by [678641-ME3 31]. Changed to canc on Oct 14, 2024@15:47 by [402899-[id number] 31]. ALBUMIN flagged incorrectly as H by [334356-LE9 31]. Abnormal flag removed on Oct 14, 2024@15:47 by [180726-[id number] 31]. ALKALINE PHOSPHATASE reported incorrectly as 229 by [041198-QM8 31]. Changed to canc on Oct 14, 2024@15:47 by [969805-RD5 31]. ALKALINE PHOSPHATASE flagged incorrectly as H by [806858-WF8 31]. Abnormal flag removed on Oct 14, 2024@15:47 by [686064-JH9 31]. AST reported incorrectly as 209 by [876919-BP7 31]. Changed to canc on Oct 14, 2024@15:47 by [[id number]-OK9 31]. AST flagged incorrectly as H by [631513-YW4 31]. Abnormal flag removed on Oct 14, 2024@15:47 by [910324-VZ8 31]. ALT reported incorrectly as 86 by [542940-VO2 31]. Changed to canc on Oct 14, 2024@15:47 by [477782-GW1 31]. ALT flagged incorrectly as H by [204768-HZ5 31]. Abnormal flag removed on Oct 14, 2024@15:47 by [508920-SM5 31]. TRIGLYCERID E reported incorrectly as 232 by [[id number]-WO1 31]. Changed to canc on Oct 14, 2024@15:47 by [783178-TS7 31]. TRIGLYCERID E flagged incorrectly as H by [499109-MV2 31]. Abnormal flag removed on Oct 14, 2024@15:47 by [536653-DT4 31]. LDL calculated reported incorrectly as 166 by [452905-YP9 31]. Changed to canc on Oct 14, 2024@15:47 by [702513-BU9 31]. LDL calculated flagged incorrectly as H by [785323-WL3 31]. Abnormal flag removed on Oct 14, 2024@15:47 by [[id number]-DN1 31]. HDL CHOLESTEROL reported incorrectly as 35 by [582489-XU0 31]. Changed to canc on Oct 14, 2024@15:47 by [644902-BI6 31]. HDL CHOLESTEROL flagged incorrectly as L by [696729-AE9 31]. Abnormal flag removed on Oct 14, 2024@15:47 by [[id number]-XN4 31]. BILIRUBIN, TOTAL reported incorrectly as 0.9 by [147313-ZZ7 31]. Changed to canc on Oct 14, 2024@15:47 by [127750-TD1 31]. CREATININE, Serum reported incorrectly as 0.53 by [528609-AG5 31]. Changed to canc on Oct 14, 2024@15:47 by [445194-VC7 31]. CREATININE, Serum flagged incorrectly as L by [907772-KU8 31]. Abnormal flag removed on Oct 14, 2024@15:47 by [455902-BB7 31]. eGFR(CKD-EP I 2020) reported incorrectly as >90 by [048347-RP1 31]. Changed to canc on Oct 14, 2024@15:47 by [[id number]-VM8 31]. Ordering Provider: DELORES JENSEN Report Released Date/Time: Sep 11, 2024 03:56 PM Reporting Lab: [facility] Per [address] [address] Performing Lab: [facility] Per [address] [address] [facility] LIPID PANEL, NON FASTING CHOLESTERO L IN LDL [MASS/VOLU ME] IN SERUM OR PLASMA BY CALCZENOBIA N cancmg/d L 0 - 129 10/13 H Specimen Type: SERUM Comment: GLUCOSE reported incorrectly as 116 by [[id number] 31]. Changed to canc on Oct 14, 2024@15:47 by [[id number]-[id number] 31]. GLUCOSE flagged incorrectly as H by [136399-EH1 31]. Abnormal flag removed on Oct 14, 2024@15:47 by [280780-NO1 31]. UREA NITROGEN reported incorrectly as 4 by [126708-LB2 31]. Changed to canc on Oct 14, 2024@15:47 by [861877-[id number] 31]. UREA NITROGEN flagged incorrectly as L by [863246-FO7 31]. Abnormal flag removed on Oct 14, 2024@15:47 by [[id number]-[id number] 31]. SODIUM reported incorrectly as 136 by [[id number]-GL8 31]. Changed to canc on Oct 14, 2024@15:47 by [[id number]-OF6 31]. POTASSIUM reported incorrectly as 3.4 by [958315-AF2 31]. Changed to canc on Oct 14, 2024@15:47 by [[id number]-[id number] 31]. POTASSIUM flagged incorrectly as L by [538797-UN8 31]. Abnormal flag removed on Oct 14, 2024@15:47 by [582277-HP4 31]. CHLORIDE reported incorrectly as 95 by [[id number]-CC9 31]. Changed to canc on Oct 14, 2024@15:47 by [873443-ZU0 31]. CHLORIDE flagged incorrectly as L by [038473-SA4 31]. Abnormal flag removed on Oct 14, 2024@15:47 by [741501-GL7 31]. CO2 reported incorrectly as 26 by [[id number]-KL7 31]. Changed to canc on Oct 14, 2024@15:47 by [609115-NC9 31]. CALCIUM reported incorrectly as 9.3 by [556308-HV2 31]. Changed to canc on Oct 14, 2024@15:47 by [[id number]-HH7 31]. CHOLESTEROL reported incorrectly as 247 by [250442-SJ8 31]. Changed to canc on Oct 14, 2024@15:47 by [283594-DG9 31]. CHOLESTEROL flagged incorrectly as H by [788363-NH3 31]. Abnormal flag removed on Oct 14, 2024@15:47 by [482385-IW0 31]. PROTEIN,TOT AL reported incorrectly as 7.9 by [174056-AH9 31]. Changed to canc on Oct 14, 2024@15:47 by [[id number]-ZP6 31]. ALBUMIN reported incorrectly as 4.7 by [267455-SO5 31]. Changed to canc on Oct 14, 2024@15:47 by [666324-YU5 31]. ALBUMIN flagged incorrectly as H by [294168-KB4 31]. Abnormal flag removed on Oct 14, 2024@15:47 by [[id number]-CN8 31]. ALKALINE PHOSPHATASE reported incorrectly as 229 by [277908-AL8 31]. Changed to canc on Oct 14, 2024@15:47 by [885783-VL7 31]. ALKALINE PHOSPHATASE flagged incorrectly as H by [942043-ZC8 31]. Abnormal flag removed on Oct 14, 2024@15:47 by [680811-TZ4 31]. AST reported incorrectly as 209 by [[id number]-GB4 31]. Changed to canc on Oct 14, 2024@15:47 by [850067-ID4 31]. AST flagged incorrectly as H by [351158-EI2 31]. Abnormal flag removed on Oct 14, 2024@15:47 by [791626-FT8 31]. ALT reported incorrectly as 86 by [993348-XK8 31]. Changed to canc on Oct 14, 2024@15:47 by [[id number]-RL1 31]. ALT flagged incorrectly as H by [151993-NV9 31]. Abnormal flag removed on Oct 14, 2024@15:47 by [668913-JR4 31]. TRIGLYCERID E reported incorrectly as 232 by [481113-IT5 31]. Changed to canc on Oct 14, 2024@15:47 by [406747-IK5 31]. TRIGLYCERID E flagged incorrectly as H by [514681-CR3 31]. Abnormal flag removed on Oct 14, 2024@15:47 by [065305-RK7 31]. LDL calculated reported incorrectly as 166 by [[id number]-BS4 31]. Changed to canc on Oct 14, 2024@15:47 by [890572-QG7 31]. LDL calculated flagged incorrectly as H by [262379-KG3 31]. Abnormal flag removed on Oct 14, 2024@15:47 by [230772-UZ5 31]. HDL CHOLESTEROL reported incorrectly as 35 by [518092-CJ5 31]. Changed to canc on Oct 14, 2024@15:47 by [194786-TZ8 31]. HDL CHOLESTEROL flagged incorrectly as L by [309487-XY3 31]. Abnormal flag removed on Oct 14, 2024@15:47 by [991946-QZ0 31]. BILIRUBIN, TOTAL reported incorrectly as 0.9 by [031124-LZ5 31]. Changed to canc on Oct 14, 2024@15:47 by [470449-TE5 31]. CREATININE, Serum reported incorrectly as 0.53 by [420812-LM4 31]. Changed to canc on Oct 14, 2024@15:47 by [414206-TD0 31]. CREATININE, Serum flagged incorrectly as L by [688737-TS8 31]. Abnormal flag removed on Oct 14, 2024@15:47 by [225743-PO6 31]. eGFR(CKD-EP I 2020) reported incorrectly as >90 by [908750-KO6 31]. Changed to canc on Oct 14, 2024@15:47 by [[id number]-DQ8 31]. Ordering Provider: DELORES JENSEN Report Released Date/Time: Sep 11, 2024 03:56 PM Reporting Lab: [facility] Per [address] [address] Performing Lab: [facility] [address] [address] [facility] LIPID PANEL, NON FASTING CHOLESTERO L IN HDL [MASS/VOLU ME] IN SERUM OR PLASMA cancmg/d L 40 10/13 L Specimen Type: SERUM Comment: GLUCOSE reported incorrectly as 116 by [468341-KF4 31]. Changed to canc on Oct 14, 2024@15:47 by [658874-AR8 31]. GLUCOSE flagged incorrectly as H by [[id number]-RL4 31]. Abnormal flag removed on Oct 14, 2024@15:47 by [740652-XC6 31]. UREA NITROGEN reported incorrectly as 4 by [791970-LG4 31]. Changed to canc on Oct 14, 2024@15:47 by [803545-FL6 31]. UREA NITROGEN flagged incorrectly as L by [045831-IC3 31]. Abnormal flag removed on Oct 14, 2024@15:47 by [434119-KQ6 31]. SODIUM reported incorrectly as 136 by [438776-YJ5 31]. Changed to canc on Oct 14, 2024@15:47 by [128481-AZ1 31]. POTASSIUM reported incorrectly as 3.4 by [452627-ZW7 31]. Changed to canc on Oct 14, 2024@15:47 by [862772-EI0 31]. POTASSIUM flagged incorrectly as L by [898160-SW1 31]. Abnormal flag removed on Oct 14, 2024@15:47 by [445145-XU6 31]. CHLORIDE reported incorrectly as 95 by [353228-XH3 31]. Changed to canc on Oct 14, 2024@15:47 by [263531-TM2 31]. CHLORIDE flagged incorrectly as L by [831493-AA7 31]. Abnormal flag removed on Oct 14, 2024@15:47 by [897893-HW7 31]. CO2 reported incorrectly as 26 by [510394-XV9 31]. Changed to canc on Oct 14, 2024@15:47 by [357074-IY7 31]. CALCIUM reported incorrectly as 9.3 by [313740-CN7 31]. Changed to canc on Oct 14, 2024@15:47 by [[id number] 31]. CHOLESTEROL reported incorrectly as 247 by [327148-QO2 31]. Changed to canc on Oct 14, 2024@15:47 by [[id number]-ZM6 31]. CHOLESTEROL flagged incorrectly as H by [[id number]-VH4 31]. Abnormal flag removed on Oct 14, 2024@15:47 by [[id number] 31]. PROTEIN,TOT AL reported incorrectly as 7.9 by [160733-GC9 31]. Changed to canc on Oct 14, 2024@15:47 by [[id number]-GB1 31]. ALBUMIN reported incorrectly as 4.7 by [315611-QS9 31]. Changed to canc on Oct 14, 2024@15:47 by [[id number]-NC0 31]. ALBUMIN flagged incorrectly as H by [[id number]-CM6 31]. Abnormal flag removed on Oct 14, 2024@15:47 by [[id number]-KB8 31]. ALKALINE PHOSPHATASE reported incorrectly as 229 by [[id number]-EH6 31]. Changed to canc on Oct 14, 2024@15:47 by [[id number]-LJ0 31]. ALKALINE PHOSPHATASE flagged incorrectly as H by [621644-GT2 31]. Abnormal flag removed on Oct 14, 2024@15:47 by [997255-WE6 31]. AST reported incorrectly as 209 by [219483-TF0 31]. Changed to canc on Oct 14, 2024@15:47 by [736748-TF0 31]. AST flagged incorrectly as H by [[id number]-GP2 31]. Abnormal flag removed on Oct 14, 2024@15:47 by [346944-UQ5 31]. ALT reported incorrectly as 86 by [343977-UI0 31]. Changed to canc on Oct 14, 2024@15:47 by [651830-TB2 31]. ALT flagged incorrectly as H by [[id number]-KE8 31]. Abnormal flag removed on Oct 14, 2024@15:47 by [[id number]-SR4 31]. TRIGLYCERID E reported incorrectly as 232 by [[id number]-QT0 31]. Changed to canc on Oct 14, 2024@15:47 by [677031-KA3 31]. TRIGLYCERID E flagged incorrectly as H by [[id number]-VX6 31]. Abnormal flag removed on Oct 14, 2024@15:47 by [[id number]-NX1 31]. LDL calculated reported incorrectly as 166 by [378741-WA4 31]. Changed to canc on Oct 14, 2024@15:47 by [481057-ID7 31]. LDL calculated flagged incorrectly as H by [977963-AO5 31]. Abnormal flag removed on Oct 14, 2024@15:47 by [185792-XM0 31]. HDL CHOLESTEROL reported incorrectly as 35 by [328036-KW8 31]. Changed to canc on Oct 14, 2024@15:47 by [424458-OW6 31]. HDL CHOLESTEROL flagged incorrectly as L by [238355-XV8 31]. Abnormal flag removed on Oct 14, 2024@15:47 by [[id number]-LL9 31]. BILIRUBIN, TOTAL reported incorrectly as 0.9 by [685314-AD2 31]. Changed to canc on Oct 14, 2024@15:47 by [262282-DO6 31]. CREATININE, Serum reported incorrectly as 0.53 by [[id number]-MZ2 31]. Changed to canc on Oct 14, 2024@15:47 by [700762-FL6 31]. CREATININE, Serum flagged incorrectly as L by [554025-FG5 31]. Abnormal flag removed on Oct 14, 2024@15:47 by [467774-QH3 31]. eGFR(CKD-EP I 2020) reported incorrectly as >90 by [412496-XR7 31]. Changed to canc on Oct 14, 2024@15:47 by [[id number]-LD6 31]. Ordering Provider: DELORES JENSEN Report Released Date/Time: Sep 11, 2024 03:56 PM Reporting Lab: [facility] Per [address] [address] Performing Lab: [place] Stand OfferR [email or web address] Per VicesCHUSEArt of Click [facility] [address] [facility] [address] [facility] Per VicesUSE [facility] LIPID PANEL, NON FASTING CHOLESTERO L.TOTAL/CH OLESTEROL IN HDL [MASS RATIO] IN SERUM OR PLASMA can 10/13 Specimen Type: SERUM Comment: GLUCOSE reported incorrectly as 116 by [438384-WS5 31]. Changed to canc on Oct 14, 2024@15:47 by [[id number]-GL8 31]. GLUCOSE flagged incorrectly as H by [091213-BT2 31]. Abnormal flag removed on Oct 14, 2024@15:47 by [264971-RL3 31]. UREA NITROGEN reported incorrectly as 4 by [427879-LK6 31]. Changed to canc on Oct 14, 2024@15:47 by [009653-QN5 31]. UREA NITROGEN flagged incorrectly as L by [712503-ZB3 31]. Abnormal flag removed on Oct 14, 2024@15:47 by [[id number]-UK7 31]. SODIUM reported incorrectly as 136 by [166586-DY0 31]. Changed to canc on Oct 14, 2024@15:47 by [537555-CA0 31]. POTASSIUM reported incorrectly as 3.4 by [483066-LZ3 31]. Changed to canc on Oct 14, 2024@15:47 by [[id number]-OT9 31]. POTASSIUM flagged incorrectly as L by [962458-SM2 31]. Abnormal flag removed on Oct 14, 2024@15:47 by [512175-NX6 31]. CHLORIDE reported incorrectly as 95 by [985034-HH5 31]. Changed to canc on Oct 14, 2024@15:47 by [911191-KT3 31]. CHLORIDE flagged incorrectly as L by [408265-XA1 31]. Abnormal flag removed on Oct 14, 2024@15:47 by [076689-TM1 31]. CO2 reported incorrectly as 26 by [417950-VC2 31]. Changed to canc on Oct 14, 2024@15:47 by [649919-IM0 31]. CALCIUM reported incorrectly as 9.3 by [143725-YJ5 31]. Changed to canc on Oct 14, 2024@15:47 by [290142-XH1 31]. CHOLESTEROL reported incorrectly as 247 by [[id number]-DU5 31]. Changed to canc on Oct 14, 2024@15:47 by [[id number]-HL9 31]. CHOLESTEROL flagged incorrectly as H by [719237-CQ5 31]. Abnormal flag removed on Oct 14, 2024@15:47 by [953812-AU1 31]. PROTEIN,TOT AL reported incorrectly as 7.9 by [620282-UJ0 31]. Changed to canc on Oct 14, 2024@15:47 by [759393-CD3 31]. ALBUMIN reported incorrectly as 4.7 by [103788-YJ8 31]. Changed to canc on Oct 14, 2024@15:47 by [605775-BW8 31]. ALBUMIN flagged incorrectly as H by [785924-YM7 31]. Abnormal flag removed on Oct 14, 2024@15:47 by [677017-BN9 31]. ALKALINE PHOSPHATASE reported incorrectly as 229 by [794039-GB7 31]. Changed to canc on Oct 14, 2024@15:47 by [878081-OM5 31]. ALKALINE PHOSPHATASE flagged incorrectly as H by [881239-FU0 31]. Abnormal flag removed on Oct 14, 2024@15:47 by [[id number]-TL8 31]. AST reported incorrectly as 209 by [299667-TI3 31]. Changed to canc on Oct 14, 2024@15:47 by [569981-KH7 31]. AST flagged incorrectly as H by [456609-HP5 31]. Abnormal flag removed on Oct 14, 2024@15:47 by [208025-XY3 31]. ALT reported incorrectly as 86 by [932403-DI6 31]. Changed to canc on Oct 14, 2024@15:47 by [[id number]-JP5 31]. ALT flagged incorrectly as H by [916875-CT8 31]. Abnormal flag removed on Oct 14, 2024@15:47 by [562970-DP8 31]. TRIGLYCERID E reported incorrectly as 232 by [974874-AP2 31]. Changed to canc on Oct 14, 2024@15:47 by [488173-UA7 31]. TRIGLYCERID E flagged incorrectly as H by [613311-QG7 31]. Abnormal flag removed on Oct 14, 2024@15:47 by [921914-AT8 31]. LDL calculated reported incorrectly as 166 by [424596-BE9 31]. Changed to canc on Oct 14, 2024@15:47 by [055573-XN7 31]. LDL calculated flagged incorrectly as H by [981125-OQ1 31]. Abnormal flag removed on Oct 14, 2024@15:47 by [526113-DH6 31]. HDL CHOLESTEROL reported incorrectly as 35 by [679860-YJ9 31]. Changed to canc on Oct 14, 2024@15:47 by [207726-OR7 31]. HDL CHOLESTEROL flagged incorrectly as L by [657860-OR0 31]. Abnormal flag removed on Oct 14, 2024@15:47 by [523959-LI1 31]. BILIRUBIN, TOTAL reported incorrectly as 0.9 by [757654-YT6 31]. Changed to canc on Oct 14, 2024@15:47 by [672858-DQ5 31]. CREATININE, Serum reported incorrectly as 0.53 by [413912-FD2 31]. Changed to canc on Oct 14, 2024@15:47 by [606160-OW1 31]. CREATININE, Serum flagged incorrectly as L by [120120-WH5 31]. Abnormal flag removed on Oct 14, 2024@15:47 by [471967-SH8 31]. eGFR(CKD-EP I 2020) reported incorrectly as >90 by [[id number]-ZE1 31]. Changed to canc on Oct 14, 2024@15:47 by [020202-PP7 31]. Ordering Provider: DELORES JENSEN Report Released Date/Time: Sep 11, 2024 03:56 PM Reporting Lab: [place] Stand Offer [employer]comTRN Via Response TechnologiesUSETS [facility] [address] [facility] [address] Performing Lab: NM Stand OfferRL WSTRN Per VicesCHUSETS [facility] [address] [facility] [address] [facility] Per VicesCHUSE [facility] CBC LEUKOCYTES [#/VOLUME] IN BLOOD BY AUTOMATED COUNT canc10*3 /uL 4.50 - 11.00 10/13 Specimen Type: BLOOD Comment: Spoke with Dante Jensen 10/14/24 @ 1430 regarding misindentif ication of patient. Results canceled. [facility] WBC reported incorrectly as 10.61 by [789077-DO7 31]. Changed to canc on Oct 14, 2024@15:45 by [679043-RG9 31]. RBC reported incorrectly as 3.35 by [394607-CY6 31]. Changed to canc on Oct 14, 2024@15:45 by [707435-DM2 31]. RBC flagged incorrectly as L by [135891-SV5 31]. Abnormal flag removed on Oct 14, 2024@15:45 by [077889-LY7 31]. HGB reported incorrectly as 13.1 by [786665-PE2 31]. Changed to canc on Oct 14, 2024@15:45 by [277489-BQ3 31]. HCT reported incorrectly as 36.7 by [627833-SS5 31]. Changed to canc on Oct 14, 2024@15:45 by [257905-SV0 31]. HCT flagged incorrectly as L by [610576-XA6 31]. Abnormal flag removed on Oct 14, 2024@15:45 by [890638-LF1 31]. MCV reported incorrectly as 109.6 by [319656-AB4 31]. Changed to canc on Oct 14, 2024@15:45 by [881632-CX0 31]. MCV flagged incorrectly as H by [130590-YK7 31]. Abnormal flag removed on Oct 14, 2024@15:45 by [[id number]-EJ5 31]. MCHC reported incorrectly as 35.7 by [879221-NP5 31]. Changed to canc on Oct 14, 2024@15:45 by [111767-YI8 31]. MCHC flagged incorrectly as H by [766217-KF3 31]. Abnormal flag removed on Oct 14, 2024@15:45 by [076945-GO4 31]. RDW-CV reported incorrectly as 13.4 by [801956-ZW6 31]. Changed to canc on Oct 14, 2024@15:45 by [293135-GM9 31]. PLT reported incorrectly as 291 by [004051-IA3 31]. Changed to canc on Oct 14, 2024@15:45 by [416307-JN9 31]. MPV reported incorrectly as 10.3 by [281174-HZ8 31]. Changed to canc on Oct 14, 2024@15:45 by [737372-AB2 31]. MCH reported incorrectly as 39.1 by [740251-IL5 31]. Changed to canc on Oct 14, 2024@15:45 by [684174-HA1 31]. MCH flagged incorrectly as H by [958478-UI3 31]. Abnormal flag removed on Oct 14, 2024@15:45 by [486374-TT1 31]. Ordering Provider: DELORES JENSEN Report Released Date/Time: Sep 11, 2024 03:56 PM Reporting Lab: [address] [address] Performing Lab: [address] [address] [place] CNTRL [place] [facility] CBC ERYTHROCYT ES [#/VOLUME] IN BLOOD BY AUTOMATED COUNT canc10*6 /uL 4.23 - 5.66 10/13 L Specimen Type: BLOOD Comment: Spoke with Dante Oswaldlivan 10/14/24 @ 1430 regarding misindentif ication of patient. Results canceled. [facility] WBC reported incorrectly as 10.61 by [[id number]-RS9 31]. Changed to canc on Oct 14, 2024@15:45 by [[id number]-IJ7 31]. RBC reported incorrectly as 3.35 by [842733-IC9 31]. Changed to canc on Oct 14, 2024@15:45 by [872057-IM4 31]. RBC flagged incorrectly as L by [752843-TN5 31]. Abnormal flag removed on Oct 14, 2024@15:45 by [[id number]-VB9 31]. HGB reported incorrectly as 13.1 by [638173-BA7 31]. Changed to canc on Oct 14, 2024@15:45 by [846617-YZ8 31]. HCT reported incorrectly as 36.7 by [002288-KF8 31]. Changed to canc on Oct 14, 2024@15:45 by [311089-ZD3 31]. HCT flagged incorrectly as L by [898151-YA9 31]. Abnormal flag removed on Oct 14, 2024@15:45 by [997333-VZ2 31]. MCV reported incorrectly as 109.6 by [746258-NB2 31]. Changed to canc on Oct 14, 2024@15:45 by [195544-RZ7 31]. MCV flagged incorrectly as H by [263302-XJ9 31]. Abnormal flag removed on Oct 14, 2024@15:45 by [480801-VG4 31]. MCHC reported incorrectly as 35.7 by [270624-XR8 31]. Changed to canc on Oct 14, 2024@15:45 by [710957-JR3 31]. MCHC flagged incorrectly as H by [228753-RV6 31]. Abnormal flag removed on Oct 14, 2024@15:45 by [610195-RU4 31]. RDW-CV reported incorrectly as 13.4 by [618157-GA6 31]. Changed to canc on Oct 14, 2024@15:45 by [554958-BV7 31]. PLT reported incorrectly as 291 by [719600-RO1 31]. Changed to canc on Oct 14, 2024@15:45 by [636139-UR8 31]. MPV reported incorrectly as 10.3 by [269597-YO7 31]. Changed to canc on Oct 14, 2024@15:45 by [[id number]-DA5 31]. MCH reported incorrectly as 39.1 by [718357-YH5 31]. Changed to canc on Oct 14, 2024@15:45 by [844786-TD2 31]. MCH flagged incorrectly as H by [865458-XH1 31]. Abnormal flag removed on Oct 14, 2024@15:45 by [136174-SZ7 31]. Ordering Provider: DELORES JENSEN Report Released Date/Time: Sep 11, 2024 03:56 PM Reporting [facility]: [facility] [address] [facility] [address] Performing Lab: [facility] Per VicesCHUSE[address] [address] [facility] [place] [facility] CBC HEMOGLOBIN [MASS/VOLU ME] IN BLOOD cancg/dL 12.8 - 17 10/13 Specimen Type: BLOOD Comment: Spoke with Dante Jensen 10/14/24 @ 1430 regarding misindentif ication of patient. Results canceled. [facility] WBC reported incorrectly as 10.61 by [[id number]-KJ2 31]. Changed to canc on Oct 14, 2024@15:45 by [224580-JI9 31]. RBC reported incorrectly as 3.35 by [492354-OP5 31]. Changed to canc on Oct 14, 2024@15:45 by [904945-HV1 31]. RBC flagged incorrectly as L by [261474-GA0 31]. Abnormal flag removed on Oct 14, 2024@15:45 by [132042-DP6 31]. HGB reported incorrectly as 13.1 by [264066-JZ1 31]. Changed to canc on Oct 14, 2024@15:45 by [[id number]-XY6 31]. HCT reported incorrectly as 36.7 by [031688-BM8 31]. Changed to canc on Oct 14, 2024@15:45 by [260609-UJ9 31]. HCT flagged incorrectly as L by [842804-JM4 31]. Abnormal flag removed on Oct 14, 2024@15:45 by [549924-CX1 31]. MCV reported incorrectly as 109.6 by [540557-PH2 31]. Changed to canc on Oct 14, 2024@15:45 by [[id number]-RE3 31]. MCV flagged incorrectly as H by [247041-GI2 31]. Abnormal flag removed on Oct 14, 2024@15:45 by [246660-GT8 31]. MCHC reported incorrectly as 35.7 by [376204-LV6 31]. Changed to canc on Oct 14, 2024@15:45 by [156065-EK4 31]. MCHC flagged incorrectly as H by [943988-RY2 31]. Abnormal flag removed on Oct 14, 2024@15:45 by [060069-JC8 31]. RDW-CV reported incorrectly as 13.4 by [989060-CQ1 31]. Changed to canc on Oct 14, 2024@15:45 by [487620-LJ2 31]. PLT reported incorrectly as 291 by [824568-VQ0 31]. Changed to canc on Oct 14, 2024@15:45 by [968802-QM6 31]. MPV reported incorrectly as 10.3 by [138357-VL8 31]. Changed to canc on Oct 14, 2024@15:45 by [457459-WV3 31]. MCH reported incorrectly as 39.1 by [773461-RU3 31]. Changed to canc on Oct 14, 2024@15:45 by [891003-EC8 31]. MCH flagged incorrectly as H by [345170-HN2 31]. Abnormal flag removed on Oct 14, 2024@15:45 by [117619-YP3 31]. Ordering Provider: DELORES JENSEN Report Released Date/Time: Sep 11, 2024 03:56 PM Reporting Lab: [place] [facility] [address] [facility] [address] Performing Lab: [place] [facility] [address] [facility] [address] [place] CNTRL [place] [facility] CBC HEMATOCRIT [VOLUME FRACTION] OF BLOOD BY AUTOMATED COUNT canc 39.2 - 50.4 10/13 L Specimen Type: BLOOD Comment: Spoke with Dante Jensen 10/14/24 @ 1430 regarding misindentif ication of patient. Results canceled. [facility] WBC reported incorrectly as 10.61 by [142966-CD1 31]. Changed to canc on Oct 14, 2024@15:45 by [677557-LB7 31]. RBC reported incorrectly as 3.35 by [976540-MM1 31]. Changed to canc on Oct 14, 2024@15:45 by [076402-LM7 31]. RBC flagged incorrectly as L by [181535-VT7 31]. Abnormal flag removed on Oct 14, 2024@15:45 by [541673-RY3 31]. HGB reported incorrectly as 13.1 by [587552-YZ6 31]. Changed to canc on Oct 14, 2024@15:45 by [454270-JK9 31]. HCT reported incorrectly as 36.7 by [507755-CC8 31]. Changed to canc on Oct 14, 2024@15:45 by [559448-RX9 31]. HCT flagged incorrectly as L by [105831-DU1 31]. Abnormal flag removed on Oct 14, 2024@15:45 by [543618-BP0 31]. MCV reported incorrectly as 109.6 by [180692-LJ6 31]. Changed to canc on Oct 14, 2024@15:45 by [705814-TB1 31]. MCV flagged incorrectly as H by [504203-FV8 31]. Abnormal flag removed on Oct 14, 2024@15:45 by [825462-LF9 31]. MCHC reported incorrectly as 35.7 by [501615-KV3 31]. Changed to canc on Oct 14, 2024@15:45 by [778842-JE2 31]. MCHC flagged incorrectly as H by [592101-PN0 31]. Abnormal flag removed on Oct 14, 2024@15:45 by [416752-RT5 31]. RDW-CV reported incorrectly as 13.4 by [253668-UR7 31]. Changed to canc on Oct 14, 2024@15:45 by [015121-HR0 31]. PLT reported incorrectly as 291 by [168978-AD0 31]. Changed to canc on Oct 14, 2024@15:45 by [028462-XV3 31]. MPV reported incorrectly as 10.3 by [479934-XE9 31]. Changed to canc on Oct 14, 2024@15:45 by [069407-DN1 31]. MCH reported incorrectly as 39.1 by [580354-JQ0 31]. Changed to canc on Oct 14, 2024@15:45 by [736527-FC5 31]. MCH flagged incorrectly as H by [405484-UY4 31]. Abnormal flag removed on Oct 14, 2024@15:45 by [522337-PP3 31]. Ordering Provider: DELORES JENSEN Report Released Date/Time: Sep 11, 2024 03:56 PM Reporting Lab: [facility] Per VicesUSE[address] [address] Performing Lab: [facility] Per VicesUSE[address] [address] [facility] CBC MCV [ENTITIC VOLUME] BY AUTOMATED COUNT cancfL 82 - 99 10/13 H Specimen Type: BLOOD Comment: Spoke with Dante Jensen 10/14/24 @ 1430 regarding misindentif ication of patient. Results canceled. [facility] WBC reported incorrectly as 10.61 by [918729-VL3 31]. Changed to canc on Oct 14, 2024@15:45 by [708969-BT0 31]. RBC reported incorrectly as 3.35 by [375867-XZ6 31]. Changed to canc on Oct 14, 2024@15:45 by [603416-NK7 31]. RBC flagged incorrectly as L by [161469-FN1 31]. Abnormal flag removed on Oct 14, 2024@15:45 by [640997-WL7 31]. HGB reported incorrectly as 13.1 by [228423-SR7 31]. Changed to canc on Oct 14, 2024@15:45 by [047154-XL0 31]. HCT reported incorrectly as 36.7 by [949485-NF9 31]. Changed to canc on Oct 14, 2024@15:45 by [649340-CL5 31]. HCT flagged incorrectly as L by [501622-BB3 31]. Abnormal flag removed on Oct 14, 2024@15:45 by [719722-LP1 31]. MCV reported incorrectly as 109.6 by [641447-UK9 31]. Changed to canc on Oct 14, 2024@15:45 by [178556-UG3 31]. MCV flagged incorrectly as H by [321175-FI6 31]. Abnormal flag removed on Oct 14, 2024@15:45 by [204840-GF9 31]. MCHC reported incorrectly as 35.7 by [030898-WL9 31]. Changed to canc on Oct 14, 2024@15:45 by [237679-JO8 31]. MCHC flagged incorrectly as H by [238727-KA2 31]. Abnormal flag removed on Oct 14, 2024@15:45 by [560087-EX5 31]. RDW-CV reported incorrectly as 13.4 by [377088-RD1 31]. Changed to canc on Oct 14, 2024@15:45 by [207167-UO3 31]. PLT reported incorrectly as 291 by [247341-LM1 31]. Changed to canc on Oct 14, 2024@15:45 by [243103-JY8 31]. MPV reported incorrectly as 10.3 by [415530-ZH7 31]. Changed to canc on Oct 14, 2024@15:45 by [305134-TI4 31]. MCH reported incorrectly as 39.1 by [806211-BV5 31]. Changed to canc on Oct 14, 2024@15:45 by [087105-KI4 31]. MCH flagged incorrectly as H by [359757-RY1 31]. Abnormal flag removed on Oct 14, 2024@15:45 by [[id number]-YO1 31]. Ordering Provider: DELORES JENSEN Report Released Date/Time: Sep 11, 2024 03:56 PM Reporting Lab: [place] [facility] [place] [facility] [address] [facility] [address] Performing Lab: [place] [facility] [place] [facility] [address] [facility] [address] NM [facility]L [facility] [place] [facility] CBC MCHC [MASS/VOLU ME] BY AUTOMATED COUNT cancg/dL 30.8 - 35.1 10/13 H Specimen Type: BLOOD Comment: Spoke with Dante Jensen 10/14/24 @ 1430 regarding misindentif ication of patient. Results canceled. [facility] WBC reported incorrectly as 10.61 by [976650-JN6 31]. Changed to canc on Oct 14, 2024@15:45 by [[id number]-MT3 31]. RBC reported incorrectly as 3.35 by [257173-TF1 31]. Changed to canc on Oct 14, 2024@15:45 by [181940-PF5 31]. RBC flagged incorrectly as L by [[id number]-YT6 31]. Abnormal flag removed on Oct 14, 2024@15:45 by [086504-KL6 31]. HGB reported incorrectly as 13.1 by [567161-TW0 31]. Changed to canc on Oct 14, 2024@15:45 by [423981-HV4 31]. HCT reported incorrectly as 36.7 by [688955-JM0 31]. Changed to canc on Oct 14, 2024@15:45 by [544439-DI1 31]. HCT flagged incorrectly as L by [205159-FZ8 31]. Abnormal flag removed on Oct 14, 2024@15:45 by [607054-KT2 31]. MCV reported incorrectly as 109.6 by [136436-MN8 31]. Changed to canc on Oct 14, 2024@15:45 by [009042-YD8 31]. MCV flagged incorrectly as H by [687711-CQ6 31]. Abnormal flag removed on Oct 14, 2024@15:45 by [689994-XU7 31]. MCHC reported incorrectly as 35.7 by [291107-AW5 31]. Changed to canc on Oct 14, 2024@15:45 by [634282-OL4 31]. MCHC flagged incorrectly as H by [833149-OW8 31]. Abnormal flag removed on Oct 14, 2024@15:45 by [512691-DS0 31]. RDW-CV reported incorrectly as 13.4 by [685750-AC2 31]. Changed to canc on Oct 14, 2024@15:45 by [584552-XB8 31]. PLT reported incorrectly as 291 by [906879-EL0 31]. Changed to canc on Oct 14, 2024@15:45 by [964795-NR9 31]. MPV reported incorrectly as 10.3 by [890808-DG5 31]. Changed to canc on Oct 14, 2024@15:45 by [876662-JZ4 31]. MCH reported incorrectly as 39.1 by [[id number]-AH9 31]. Changed to canc on Oct 14, 2024@15:45 by [296723-WP7 31]. MCH flagged incorrectly as H by [226470-TS5 31]. Abnormal flag removed on Oct 14, 2024@15:45 by [978327-XH5 31]. Ordering Provider: DELORES JENSEN Report Released Date/Time: Sep 11, 2024 03:56 PM Reporting Lab: [place] CNTR [employer].comTRN Via Response TechnologiesUSETS [facility] [address] [facility] [address] Performing Lab: [facility]TRLAUREL [facility] Per VicesCHUSETS [facility] [address] [facility] [address] [facility] Per VicesCHUSE [facility] CBC PLATELETS [#/VOLUME] IN BLOOD BY AUTOMATED COUNT canc10*3 /uL 140 - 360 10/13 Specimen Type: BLOOD Comment: Spoke with Dante Jensen 10/14/24 @ 1430 regarding misindentif ication of patient. Results canceled. [facility] WBC reported incorrectly as 10.61 by [862693-BL3 31]. Changed to canc on Oct 14, 2024@15:45 by [[id number]-WQ9 31]. RBC reported incorrectly as 3.35 by [231599-YF8 31]. Changed to canc on Oct 14, 2024@15:45 by [[id number]-IN9 31]. RBC flagged incorrectly as L by [570148-CN8 31]. Abnormal flag removed on Oct 14, 2024@15:45 by [358031-LS1 31]. HGB reported incorrectly as 13.1 by [918417-WC8 31]. Changed to canc on Oct 14, 2024@15:45 by [[id number]-AI4 31]. HCT reported incorrectly as 36.7 by [224545-GL4 31]. Changed to canc on Oct 14, 2024@15:45 by [092187-VI4 31]. HCT flagged incorrectly as L by [108336-GM2 31]. Abnormal flag removed on Oct 14, 2024@15:45 by [888006-ND5 31]. MCV reported incorrectly as 109.6 by [499861-VM2 31]. Changed to canc on Oct 14, 2024@15:45 by [062909-SR5 31]. MCV flagged incorrectly as H by [753791-MG6 31]. Abnormal flag removed on Oct 14, 2024@15:45 by [049362-PJ5 31]. MCHC reported incorrectly as 35.7 by [618330-EW9 31]. Changed to canc on Oct 14, 2024@15:45 by [663438-BF8 31]. MCHC flagged incorrectly as H by [318727-VN1 31]. Abnormal flag removed on Oct 14, 2024@15:45 by [[id number]-DA3 31]. RDW-CV reported incorrectly as 13.4 by [845291-FH2 31]. Changed to canc on Oct 14, 2024@15:45 by [254646-IU7 31]. PLT reported incorrectly as 291 by [100993-BS0 31]. Changed to canc on Oct 14, 2024@15:45 by [309492-DE7 31]. MPV reported incorrectly as 10.3 by [082164-CH4 31]. Changed to canc on Oct 14, 2024@15:45 by [[id number]-NQ5 31]. MCH reported incorrectly as 39.1 by [819701-GT1 31]. Changed to canc on Oct 14, 2024@15:45 by [094006-VY3 31]. MCH flagged incorrectly as H by [172184-NH1 31]. Abnormal flag removed on Oct 14, 2024@15:45 by [[id number]-JC7 31]. Ordering Provider: DELORES JENSEN Report Released Date/Time: Sep 11, 2024 03:56 PM Reporting Lab: [place] [facility] [facility] [address] [facility] [address] Performing Lab: [place] [facility] [facility] [address] [facility] [address] [place] [facility] [place] [facility] CBC PLATELET MEAN VOLUME [ENTITIC VOLUME] IN BLOOD BY AUTOMATED COUNT cancfL 9.2 - 12.4 10/13 Specimen Type: BLOOD Comment: Spoke with Dante Jensen 10/14/24 @ 1430 regarding misindentif ication of patient. Results canceled. LJ WBC reported incorrectly as 10.61 by [[id number] 31]. Changed to canc on Oct 14, 2024@15:45 by [[id number] 31]. RBC reported incorrectly as 3.35 by [[id number] 31]. Changed to canc on Oct 14, 2024@15:45 by [[id number] 31]. RBC flagged incorrectly as L by [[id number] 31]. Abnormal flag removed on Oct 14, 2024@15:45 by [[id number] 31]. HGB reported incorrectly as 13.1 by [[id number] 31]. Changed to canc on Oct 14, 2024@15:45 by [[id number] 31]. HCT reported incorrectly as 36.7 by [[id number] 31]. Changed to canc on Oct 14, 2024@15:45 by [[id number] 31]. HCT flagged incorrectly as L by [[id number] 31]. Abnormal flag removed on Oct 14, 2024@15:45 by [[id number] 31]. MCV reported incorrectly as 109.6 by [[id number] 31]. Changed to canc on Oct 14, 2024@15:45 by [[id number] 31]. MCV flagged incorrectly as H by [[id number] 31]. Abnormal flag removed on Oct 14, 2024@15:45 by [[id number] 31]. MCHC reported incorrectly as 35.7 by [[id number] 31]. Changed to canc on Oct 14, 2024@15:45 by [[id number] 31]. MCHC flagged incorrectly as H by [[id number] 31]. Abnormal flag removed on Oct 14, 2024@15:45 by [[id number] 31]. RDW-CV reported incorrectly as 13.4 by [[id number] 31]. Changed to canc on Oct 14, 2024@15:45 by [[id number] 31]. PLT reported incorrectly as 291 by [[id number] 31]. Changed to canc on Oct 14, 2024@15:45 by [[id number]-[id number] 31]. MPV reported incorrectly as 10.3 by [[id number] 31]. Changed to canc on Oct 14, 2024@15:45 by [[id number] 31]. MCH reported incorrectly as 39.1 by [[id number] 31]. Changed to canc on Oct 14, 2024@15:45 by [[id number] 31]. MCH flagged incorrectly as H by [[id number] 31]. Abnormal flag removed on Oct 14, 2024@15:45 by [[id number] 31]. Ordering Provider: DELORES JENSEN Report Released Date/Time: Sep 11, 2024 03:56 PM Reporting Lab: [place] [facility] [address] [facility] [address] Performing Lab: [place] [facility] [address] [facility] [address] [place] [facility] Per VicesCHUSE [facility] CBC ERYTHROCYT E DISTRIBUTI ON WIDTH [RATIO] BY AUTOMATED COUNT canc 12.0 - 16.0 10/13 Specimen Type: BLOOD Comment: Spoke with Dante Jensen 10/14/24 @ 1430 regarding misindentif ication of patient. Results canceled. [facility] WBC reported incorrectly as 10.61 by [337137-QW4 31]. Changed to canc on Oct 14, 2024@15:45 by [119682-WQ0 31]. RBC reported incorrectly as 3.35 by [[id number]-OY4 31]. Changed to canc on Oct 14, 2024@15:45 by [531153-EC2 31]. RBC flagged incorrectly as L by [347024-DV3 31]. Abnormal flag removed on Oct 14, 2024@15:45 by [[id number]-TQ2 31]. HGB reported incorrectly as 13.1 by [078978-QY1 31]. Changed to canc on Oct 14, 2024@15:45 by [667577-BB4 31]. HCT reported incorrectly as 36.7 by [097222-ZF1 31]. Changed to canc on Oct 14, 2024@15:45 by [751835-CR4 31]. HCT flagged incorrectly as L by [797990-TM6 31]. Abnormal flag removed on Oct 14, 2024@15:45 by [000483-SL1 31]. MCV reported incorrectly as 109.6 by [245506-XR1 31]. Changed to canc on Oct 14, 2024@15:45 by [236466-RN7 31]. MCV flagged incorrectly as H by [785551-XM3 31]. Abnormal flag removed on Oct 14, 2024@15:45 by [611080-PI2 31]. MCHC reported incorrectly as 35.7 by [939023-CC1 31]. Changed to canc on Oct 14, 2024@15:45 by [559419-CC1 31]. MCHC flagged incorrectly as H by [208949-GT6 31]. Abnormal flag removed on Oct 14, 2024@15:45 by [639696-II0 31]. RDW-CV reported incorrectly as 13.4 by [368556-QW0 31]. Changed to canc on Oct 14, 2024@15:45 by [983662-HN9 31]. PLT reported incorrectly as 291 by [195178-GG5 31]. Changed to canc on Oct 14, 2024@15:45 by [443708-JI6 31]. MPV reported incorrectly as 10.3 by [583070-IL9 31]. Changed to canc on Oct 14, 2024@15:45 by [362059-AF3 31]. MCH reported incorrectly as 39.1 by [394450-QR6 31]. Changed to canc on Oct 14, 2024@15:45 by [439956-LJ9 31]. MCH flagged incorrectly as H by [665474-BG4 31]. Abnormal flag removed on Oct 14, 2024@15:45 by [485393-SY6 31]. Ordering Provider: DELORES JENSEN Report Released Date/Time: Sep 11, 2024 03:56 PM Reporting Lab: [place] [facility] [place] [facility] [address] [facility] [address] Performing Lab: [place] [facility] [place] [facility] [address] [facility] [address] [place] [facility] HCS CBC MCH [ENTITIC MASS] BY AUTOMATED COUNT cancpg 26.2 - 32.6 10/13 H Specimen Type: BLOOD Comment: Spoke with Dante Jensen 10/14/24 @ 1430 regarding misindentif ication of patient. Results canceled. [facility] WBC reported incorrectly as 10.61 by [984553-BZ7 31]. Changed to canc on Oct 14, 2024@15:45 by [[id number]-TX8 31]. RBC reported incorrectly as 3.35 by [601983-EO6 31]. Changed to canc on Oct 14, 2024@15:45 by [213008-HJ6 31]. RBC flagged incorrectly as L by [621788-WS0 31]. Abnormal flag removed on Oct 14, 2024@15:45 by [457650-DE6 31]. HGB reported incorrectly as 13.1 by [236190-JL7 31]. Changed to canc on Oct 14, 2024@15:45 by [604892-AK0 31]. HCT reported incorrectly as 36.7 by [492033-RW6 31]. Changed to canc on Oct 14, 2024@15:45 by [104041-OM9 31]. HCT flagged incorrectly as L by [691047-SG6 31]. Abnormal flag removed on Oct 14, 2024@15:45 by [545822-JE4 31]. MCV reported incorrectly as 109.6 by [586422-XT2 31]. Changed to canc on Oct 14, 2024@15:45 by [095311-DN0 31]. MCV flagged incorrectly as H by [634125-AZ0 31]. Abnormal flag removed on Oct 14, 2024@15:45 by [143096-XG9 31]. MCHC reported incorrectly as 35.7 by [327155-DL8 31]. Changed to canc on Oct 14, 2024@15:45 by [800388-FR8 31]. MCHC flagged incorrectly as H by [060910-CG7 31]. Abnormal flag removed on Oct 14, 2024@15:45 by [217475-FY1 31]. RDW-CV reported incorrectly as 13.4 by [538924-KT2 31]. Changed to canc on Oct 14, 2024@15:45 by [081695-MU5 31]. PLT reported incorrectly as 291 by [913512-KO4 31]. Changed to canc on Oct 14, 2024@15:45 by [839352-VP0 31]. MPV reported incorrectly as 10.3 by [506672-JF0 31]. Changed to canc on Oct 14, 2024@15:45 by [310392-CM1 31]. MCH reported incorrectly as 39.1 by [158522-QN1 31]. Changed to canc on Oct 14, 2024@15:45 by [[id number]-WF3 31]. MCH flagged incorrectly as H by [020342-HN4 31]. Abnormal flag removed on Oct 14, 2024@15:45 by [354183-HB5 31]. Ordering Provider: DELORES JENSEN Report Released Date/Time: Sep 11, 2024 03:56 PM Reporting [facility] [address] [facility] [address] Performing Lab: [facility] [address] [facility] [address] [facility] BASIC METABOLI C PANEL (non-fas ting) UREA NITROGEN [MASS/VOLU ME] IN SERUM OR PLASMA cancmg/d L 8 - 10/13 L Specimen Type: SERUM Comment: GLUCOSE reported incorrectly as 116 by [024477-NE1 31]. Changed to canc on Oct 14, 2024@15:47 by [[id number]-XP9 31]. GLUCOSE flagged incorrectly as H by [989518-AT8 31]. Abnormal flag removed on Oct 14, 2024@15:47 by [753074-FO1 31]. UREA NITROGEN reported incorrectly as 4 by [474979-EE4 31]. Changed to canc on Oct 14, 2024@15:47 by [[id number]-[id number] 31]. UREA NITROGEN flagged incorrectly as L by [205970-HJ1 31]. Abnormal flag removed on Oct 14, 2024@15:47 by [831443-BH5 31]. SODIUM reported incorrectly as 136 by [194051-QC8 31]. Changed to canc on Oct 14, 2024@15:47 by [691198-RB5 31]. POTASSIUM reported incorrectly as 3.4 by [331866-YL1 31]. Changed to canc on Oct 14, 2024@15:47 by [808758-FW9 31]. POTASSIUM flagged incorrectly as L by [839666-MJ7 31]. Abnormal flag removed on Oct 14, 2024@15:47 by [308450-YM6 31]. CHLORIDE reported incorrectly as 95 by [740875-SQ2 31]. Changed to canc on Oct 14, 2024@15:47 by [957742-VV4 31]. CHLORIDE flagged incorrectly as L by [260328-IU2 31]. Abnormal flag removed on Oct 14, 2024@15:47 by [517900-CP4 31]. CO2 reported incorrectly as 26 by [680126-UW6 31]. Changed to canc on Oct 14, 2024@15:47 by [955464-PL1 31]. CALCIUM reported incorrectly as 9.3 by [742161-PP9 31]. Changed to canc on Oct 14, 2024@15:47 by [767587-NS9 31]. CHOLESTEROL reported incorrectly as 247 by [356783-JY8 31]. Changed to canc on Oct 14, 2024@15:47 by [457763-XN9 31]. CHOLESTEROL flagged incorrectly as H by [053201-RH3 31]. Abnormal flag removed on Oct 14, 2024@15:47 by [870128-ZX4 31]. PROTEIN,TOT AL reported incorrectly as 7.9 by [218109-BM2 31]. Changed to canc on Oct 14, 2024@15:47 by [963023-BX2 31]. ALBUMIN reported incorrectly as 4.7 by [431926-XB0 31]. Changed to canc on Oct 14, 2024@15:47 by [331142-PN7 31]. ALBUMIN flagged incorrectly as H by [495957-DQ3 31]. Abnormal flag removed on Oct 14, 2024@15:47 by [992167-FT5 31]. ALKALINE PHOSPHATASE reported incorrectly as 229 by [803499-XV6 31]. Changed to canc on Oct 14, 2024@15:47 by [[id number]-RU7 31]. ALKALINE PHOSPHATASE flagged incorrectly as H by [621688-TD1 31]. Abnormal flag removed on Oct 14, 2024@15:47 by [657608-CH3 31]. AST reported incorrectly as 209 by [905635-VH6 31]. Changed to canc on Oct 14, 2024@15:47 by [200353-KH2 31]. AST flagged incorrectly as H by [626315-VZ1 31]. Abnormal flag removed on Oct 14, 2024@15:47 by [235131-BA2 31]. ALT reported incorrectly as 86 by [305553-SG7 31]. Changed to canc on Oct 14, 2024@15:47 by [327995-IJ9 31]. ALT flagged incorrectly as H by [982276-NN1 31]. Abnormal flag removed on Oct 14, 2024@15:47 by [989244-VN7 31]. TRIGLYCERID E reported incorrectly as 232 by [635346-JR0 31]. Changed to canc on Oct 14, 2024@15:47 by [836467-ZE4 31]. TRIGLYCERID E flagged incorrectly as H by [992348-DX7 31]. Abnormal flag removed on Oct 14, 2024@15:47 by [168724-TE7 31]. LDL calculated reported incorrectly as 166 by [227243-CS0 31]. Changed to canc on Oct 14, 2024@15:47 by [709010-BC2 31]. LDL calculated flagged incorrectly as H by [245406-QK4 31]. Abnormal flag removed on Oct 14, 2024@15:47 by [555083-JZ6 31]. HDL CHOLESTEROL reported incorrectly as 35 by [138622-JW9 31]. Changed to canc on Oct 14, 2024@15:47 by [233937-FD0 31]. HDL CHOLESTEROL flagged incorrectly as L by [153263-UQ3 31]. Abnormal flag removed on Oct 14, 2024@15:47 by [586043-CS7 31]. BILIRUBIN, TOTAL reported incorrectly as 0.9 by [988813-HH0 31]. Changed to canc on Oct 14, 2024@15:47 by [380637-YO0 31]. CREATININE, Serum reported incorrectly as 0.53 by [594890-GG1 31]. Changed to canc on Oct 14, 2024@15:47 by [832794-KV6 31]. CREATININE, Serum flagged incorrectly as L by [710747-RE5 31]. Abnormal flag removed on Oct 14, 2024@15:47 by [491089-ST0 31]. eGFR(CKD-EP I 2020) reported incorrectly as >90 by [956525-ME7 31]. Changed to canc on Oct 14, 2024@15:47 by [058989-NY6 31]. Ordering Provider: DELORES JENSEN Report Released Date/Time: Sep 11, 2024 03:56 PM Reporting Lab: [facility] Per [facility]ices[address] [address] Performing Lab: [facility] [address] [address] [place] [facility] [facility] BASIC METABOLI C PANEL (non-fas ting) GLUCOSE [MASS/VOLU ME] IN SERUM OR PLASMA cancmg/d L 65 - 100 10/13 H Specimen Type: SERUM Comment: GLUCOSE reported incorrectly as 116 by [468880-KJ0 31]. Changed to canc on Oct 14, 2024@15:47 by [369806-IZ2 31]. GLUCOSE flagged incorrectly as H by [606935-NE9 31]. Abnormal flag removed on Oct 14, 2024@15:47 by [756941-ZA0 31]. UREA NITROGEN reported incorrectly as 4 by [828012-WZ6 31]. Changed to canc on Oct 14, 2024@15:47 by [994274-BS5 31]. UREA NITROGEN flagged incorrectly as L by [217069-KU8 31]. Abnormal flag removed on Oct 14, 2024@15:47 by [462740-HQ0 31]. SODIUM reported incorrectly as 136 by [403948-JA8 31]. Changed to canc on Oct 14, 2024@15:47 by [055075-TX5 31]. POTASSIUM reported incorrectly as 3.4 by [823256-RN9 31]. Changed to canc on Oct 14, 2024@15:47 by [752772-JE5 31]. POTASSIUM flagged incorrectly as L by [256377-BA6 31]. Abnormal flag removed on Oct 14, 2024@15:47 by [683876-YL1 31]. CHLORIDE reported incorrectly as 95 by [599525-SE8 31]. Changed to canc on Oct 14, 2024@15:47 by [329751-OY0 31]. CHLORIDE flagged incorrectly as L by [444833-ZW6 31]. Abnormal flag removed on Oct 14, 2024@15:47 by [271429-WK8 31]. CO2 reported incorrectly as 26 by [527741-QA4 31]. Changed to canc on Oct 14, 2024@15:47 by [[id number]-LK7 31]. CALCIUM reported incorrectly as 9.3 by [440606-SF9 31]. Changed to canc on Oct 14, 2024@15:47 by [293245-QN4 31]. CHOLESTEROL reported incorrectly as 247 by [693394-VZ9 31]. Changed to canc on Oct 14, 2024@15:47 by [978116-ZA3 31]. CHOLESTEROL flagged incorrectly as H by [163426-GV2 31]. Abnormal flag removed on Oct 14, 2024@15:47 by [702470-CY9 31]. PROTEIN,TOT AL reported incorrectly as 7.9 by [830507-RN1 31]. Changed to canc on Oct 14, 2024@15:47 by [895665-TJ7 31]. ALBUMIN reported incorrectly as 4.7 by [776672-UO6 31]. Changed to canc on Oct 14, 2024@15:47 by [507346-DG0 31]. ALBUMIN flagged incorrectly as H by [606869-SC3 31]. Abnormal flag removed on Oct 14, 2024@15:47 by [555731-AE1 31]. ALKALINE PHOSPHATASE reported incorrectly as 229 by [375399-GS4 31]. Changed to canc on Oct 14, 2024@15:47 by [538966-QL2 31]. ALKALINE PHOSPHATASE flagged incorrectly as H by [561236-AH6 31]. Abnormal flag removed on Oct 14, 2024@15:47 by [538210-GG7 31]. AST reported incorrectly as 209 by [342952-QD3 31]. Changed to canc on Oct 14, 2024@15:47 by [551883-RK5 31]. AST flagged incorrectly as H by [208206-SN8 31]. Abnormal flag removed on Oct 14, 2024@15:47 by [645318-ZW0 31]. ALT reported incorrectly as 86 by [289118-EB4 31]. Changed to canc on Oct 14, 2024@15:47 by [650355-KC3 31]. ALT flagged incorrectly as H by [429985-PQ6 31]. Abnormal flag removed on Oct 14, 2024@15:47 by [997321-AM4 31]. TRIGLYCERID E reported incorrectly as 232 by [057769-LR4 31]. Changed to canc on Oct 14, 2024@15:47 by [233539-ET5 31]. TRIGLYCERID E flagged incorrectly as H by [305726-QN8 31]. Abnormal flag removed on Oct 14, 2024@15:47 by [659620-LO9 31]. LDL calculated reported incorrectly as 166 by [336778-PK8 31]. Changed to canc on Oct 14, 2024@15:47 by [356070-LV3 31]. LDL calculated flagged incorrectly as H by [914157-KP5 31]. Abnormal flag removed on Oct 14, 2024@15:47 by [678429-YC8 31]. HDL CHOLESTEROL reported incorrectly as 35 by [624829-CP2 31]. Changed to canc on Oct 14, 2024@15:47 by [758657-EZ6 31]. HDL CHOLESTEROL flagged incorrectly as L by [890330-NS9 31]. Abnormal flag removed on Oct 14, 2024@15:47 by [853126-PJ7 31]. BILIRUBIN, TOTAL reported incorrectly as 0.9 by [287872-RV0 31]. Changed to canc on Oct 14, 2024@15:47 by [372871-UI2 31]. CREATININE, Serum reported incorrectly as 0.53 by [864948-BK6 31]. Changed to canc on Oct 14, 2024@15:47 by [645002-PU6 31]. CREATININE, Serum flagged incorrectly as L by [457131-CI5 31]. Abnormal flag removed on Oct 14, 2024@15:47 by [980432-NJ9 31]. eGFR(CKD-EP I 2020) reported incorrectly as >90 by [044623-UR3 31]. Changed to canc on Oct 14, 2024@15:47 by [869409-XU3 31]. Ordering Provider: DELORES JENSEN Report Released Date/Time: Sep 11, 2024 03:56 PM Reporting Lab: [place] Stand OfferR [facility]N [employer] [address] TechnologiesUSE[address] [address] Performing Lab: [place] Stand OfferR [facility] [employer] [address]USE[address] [address] [place] [facility] Per [facility]CH[facility] BASIC METABOLI C PANEL (non-fas ting) SODIUM [MOLES/VOL UME] IN SERUM OR PLASMA cancmmol /L 136 - 145 10/13 Specimen Type: SERUM Comment: GLUCOSE reported incorrectly as 116 by [471195-CG5 31]. Changed to canc on Oct 14, 2024@15:47 by [051993-XP9 31]. GLUCOSE flagged incorrectly as H by [304628-TH9 31]. Abnormal flag removed on Oct 14, 2024@15:47 by [636566-IO2 31]. UREA NITROGEN reported incorrectly as 4 by [029604-KG1 31]. Changed to canc on Oct 14, 2024@15:47 by [587794-ND0 31]. UREA NITROGEN flagged incorrectly as L by [683294-JT6 31]. Abnormal flag removed on Oct 14, 2024@15:47 by [942048-AP4 31]. SODIUM reported incorrectly as 136 by [417625-FX1 31]. Changed to canc on Oct 14, 2024@15:47 by [480789-YF5 31]. POTASSIUM reported incorrectly as 3.4 by [420156-XQ8 31]. Changed to canc on Oct 14, 2024@15:47 by [218400-GN9 31]. POTASSIUM flagged incorrectly as L by [223485-RM8 31]. Abnormal flag removed on Oct 14, 2024@15:47 by [737139-PF8 31]. CHLORIDE reported incorrectly as 95 by [047764-CL4 31]. Changed to canc on Oct 14, 2024@15:47 by [781690-ZN3 31]. CHLORIDE flagged incorrectly as L by [266409-LN4 31]. Abnormal flag removed on Oct 14, 2024@15:47 by [630935-GT0 31]. CO2 reported incorrectly as 26 by [368160-OS0 31]. Changed to canc on Oct 14, 2024@15:47 by [422219-XV8 31]. CALCIUM reported incorrectly as 9.3 by [856963-PL2 31]. Changed to canc on Oct 14, 2024@15:47 by [051322-ZT6 31]. CHOLESTEROL reported incorrectly as 247 by [233781-PC6 31]. Changed to canc on Oct 14, 2024@15:47 by [196453-IF9 31]. CHOLESTEROL flagged incorrectly as H by [768355-DP9 31]. Abnormal flag removed on Oct 14, 2024@15:47 by [008435-ZX5 31]. PROTEIN,TOT AL reported incorrectly as 7.9 by [404858-PU5 31]. Changed to canc on Oct 14, 2024@15:47 by [266537-XN7 31]. ALBUMIN reported incorrectly as 4.7 by [747779-DV6 31]. Changed to canc on Oct 14, 2024@15:47 by [977271-IZ4 31]. ALBUMIN flagged incorrectly as H by [543322-JT5 31]. Abnormal flag removed on Oct 14, 2024@15:47 by [962145-TE8 31]. ALKALINE PHOSPHATASE reported incorrectly as 229 by [737928-SG2 31]. Changed to canc on Oct 14, 2024@15:47 by [539717-RU4 31]. ALKALINE PHOSPHATASE flagged incorrectly as H by [206884-AF5 31]. Abnormal flag removed on Oct 14, 2024@15:47 by [063065-MX1 31]. AST reported incorrectly as 209 by [744209-XB3 31]. Changed to canc on Oct 14, 2024@15:47 by [164371-LI4 31]. AST flagged incorrectly as H by [031451-HQ5 31]. Abnormal flag removed on Oct 14, 2024@15:47 by [811071-NV0 31]. ALT reported incorrectly as 86 by [481949-XV7 31]. Changed to canc on Oct 14, 2024@15:47 by [675170-XQ4 31]. ALT flagged incorrectly as H by [294961-IU6 31]. Abnormal flag removed on Oct 14, 2024@15:47 by [158673-CI6 31]. TRIGLYCERID E reported incorrectly as 232 by [797395-LJ2 31]. Changed to canc on Oct 14, 2024@15:47 by [154640-JW4 31]. TRIGLYCERID E flagged incorrectly as H by [620646-YP2 31]. Abnormal flag removed on Oct 14, 2024@15:47 by [013007-OR2 31]. LDL calculated reported incorrectly as 166 by [612927-KQ0 31]. Changed to canc on Oct 14, 2024@15:47 by [580870-IX0 31]. LDL calculated flagged incorrectly as H by [986675-JK6 31]. Abnormal flag removed on Oct 14, 2024@15:47 by [297880-BR0 31]. HDL CHOLESTEROL reported incorrectly as 35 by [739964-IM2 31]. Changed to canc on Oct 14, 2024@15:47 by [649730-AS2 31]. HDL CHOLESTEROL flagged incorrectly as L by [724182-XQ0 31]. Abnormal flag removed on Oct 14, 2024@15:47 by [156412-QJ0 31]. BILIRUBIN, TOTAL reported incorrectly as 0.9 by [804643-GP6 31]. Changed to canc on Oct 14, 2024@15:47 by [332052-MP5 31]. CREATININE, Serum reported incorrectly as 0.53 by [242303-ZJ3 31]. Changed to canc on Oct 14, 2024@15:47 by [849631-TD4 31]. CREATININE, Serum flagged incorrectly as L by [518899-OR2 31]. Abnormal flag removed on Oct 14, 2024@15:47 by [295001-TX2 31]. eGFR(CKD-EP I 2020) reported incorrectly as >90 by [692719-EY8 31]. Changed to canc on Oct 14, 2024@15:47 by [484525-AD8 31]. Ordering Provider: DELORES JENSEN Report Released Date/Time: Sep 11, 2024 03:56 PM Reporting [facility] [employer] [address] Performing Lab: [place] Stand [place] [employer] [address] [facility] Via Response TechnologiesUSE [facility] BASIC METABOLI C PANEL (non-fas ting) POTASSIUM [MOLES/VOL UME] IN SERUM OR PLASMA cancmmol /L 3.5 - 5.1 10/13 L Specimen Type: SERUM Comment: GLUCOSE reported incorrectly as 116 by [671579-NG7 31]. Changed to canc on Oct 14, 2024@15:47 by [292573-RQ6 31]. GLUCOSE flagged incorrectly as H by [899272-MK8 31]. Abnormal flag removed on Oct 14, 2024@15:47 by [550909-CC3 31]. UREA NITROGEN reported incorrectly as 4 by [678684-WQ8 31]. Changed to canc on Oct 14, 2024@15:47 by [147561-LI8 31]. UREA NITROGEN flagged incorrectly as L by [875235-PQ8 31]. Abnormal flag removed on Oct 14, 2024@15:47 by [456340-TE0 31]. SODIUM reported incorrectly as 136 by [171016-EA2 31]. Changed to canc on Oct 14, 2024@15:47 by [744892-DV9 31]. POTASSIUM reported incorrectly as 3.4 by [570535-YN3 31]. Changed to canc on Oct 14, 2024@15:47 by [464552-LH8 31]. POTASSIUM flagged incorrectly as L by [821823-NF3 31]. Abnormal flag removed on Oct 14, 2024@15:47 by [362435-RU2 31]. CHLORIDE reported incorrectly as 95 by [475336-UF8 31]. Changed to canc on Oct 14, 2024@15:47 by [937662-VH4 31]. CHLORIDE flagged incorrectly as L by [939133-RN7 31]. Abnormal flag removed on Oct 14, 2024@15:47 by [645254-MT8 31]. CO2 reported incorrectly as 26 by [072186-VT0 31]. Changed to canc on Oct 14, 2024@15:47 by [343744-IB7 31]. CALCIUM reported incorrectly as 9.3 by [163224-KO9 31]. Changed to canc on Oct 14, 2024@15:47 by [309966-TT7 31]. CHOLESTEROL reported incorrectly as 247 by [683795-LR1 31]. Changed to canc on Oct 14, 2024@15:47 by [788506-DC8 31]. CHOLESTEROL flagged incorrectly as H by [997221-HO3 31]. Abnormal flag removed on Oct 14, 2024@15:47 by [111795-OX0 31]. PROTEIN,TOT AL reported incorrectly as 7.9 by [488111-AQ5 31]. Changed to canc on Oct 14, 2024@15:47 by [068515-CX4 31]. ALBUMIN reported incorrectly as 4.7 by [289100-BY5 31]. Changed to canc on Oct 14, 2024@15:47 by [237363-UI8 31]. ALBUMIN flagged incorrectly as H by [925822-OD9 31]. Abnormal flag removed on Oct 14, 2024@15:47 by [321454-GP6 31]. ALKALINE PHOSPHATASE reported incorrectly as 229 by [501007-ZX5 31]. Changed to canc on Oct 14, 2024@15:47 by [377199-MX9 31]. ALKALINE PHOSPHATASE flagged incorrectly as H by [156759-QS8 31]. Abnormal flag removed on Oct 14, 2024@15:47 by [571937-SW3 31]. AST reported incorrectly as 209 by [067439-UW2 31]. Changed to canc on Oct 14, 2024@15:47 by [989850-LP1 31]. AST flagged incorrectly as H by [274592-DN9 31]. Abnormal flag removed on Oct 14, 2024@15:47 by [238063-GK5 31]. ALT reported incorrectly as 86 by [337325-PS7 31]. Changed to canc on Oct 14, 2024@15:47 by [146429-BA7 31]. ALT flagged incorrectly as H by [517339-MU1 31]. Abnormal flag removed on Oct 14, 2024@15:47 by [944858-LD7 31]. TRIGLYCERID E reported incorrectly as 232 by [675045-CW3 31]. Changed to canc on Oct 14, 2024@15:47 by [163290-UD5 31]. TRIGLYCERID E flagged incorrectly as H by [929370-GM9 31]. Abnormal flag removed on Oct 14, 2024@15:47 by [324734-CS0 31]. LDL calculated reported incorrectly as 166 by [793161-CO7 31]. Changed to canc on Oct 14, 2024@15:47 by [177358-MH0 31]. LDL calculated flagged incorrectly as H by [704721-QP2 31]. Abnormal flag removed on Oct 14, 2024@15:47 by [917184-UA9 31]. HDL CHOLESTEROL reported incorrectly as 35 by [338453-YG9 31]. Changed to canc on Oct 14, 2024@15:47 by [831158-RV8 31]. HDL CHOLESTEROL flagged incorrectly as L by [761658-YW0 31]. Abnormal flag removed on Oct 14, 2024@15:47 by [219221-ZW5 31]. BILIRUBIN, TOTAL reported incorrectly as 0.9 by [386324-DD5 31]. Changed to canc on Oct 14, 2024@15:47 by [055639-TW4 31]. CREATININE, Serum reported incorrectly as 0.53 by [822540-XE8 31]. Changed to canc on Oct 14, 2024@15:47 by [501519-DW6 31]. CREATININE, Serum flagged incorrectly as L by [065261-VF6 31]. Abnormal flag removed on Oct 14, 2024@15:47 by [148141-MQ5 31]. eGFR(CKD-EP I 2020) reported incorrectly as >90 by [342605-QA2 31]. Changed to canc on Oct 14, 2024@15:47 by [424674-IE3 31]. Ordering Provider: DELORES JENSEN Report Released Date/Time: Sep 11, 2024 03:56 PM Reporting Lab: [place] Stand [place] [employer] [employer] [address]USE[address] [address] Performing Lab: [place] [email or web address] [address] [facility] [address] [place] [email or web address] BASIC METABOLI C PANEL (non-fas ting) CHLORIDE [MOLES/VOL UME] IN SERUM OR PLASMA cancmmol /L 98 - 107 10/13 L Specimen Type: SERUM Comment: GLUCOSE reported incorrectly as 116 by [[id number] 31]. Changed to canc on Oct 14, 2024@15:47 by [[id number] 31]. GLUCOSE flagged incorrectly as H by [[id number] 31]. Abnormal flag removed on Oct 14, 2024@15:47 by [[id number] 31]. UREA NITROGEN reported incorrectly as 4 by [[id number] 31]. Changed to canc on Oct 14, 2024@15:47 by [[id number] 31]. UREA NITROGEN flagged incorrectly as L by [[id number] 31]. Abnormal flag removed on Oct 14, 2024@15:47 by [[id number] 31]. SODIUM reported incorrectly as 136 by [[id number] 31]. Changed to canc on Oct 14, 2024@15:47 by [[id number] 31]. POTASSIUM reported incorrectly as 3.4 by [[id number] 31]. Changed to canc on Oct 14, 2024@15:47 by [[id number] 31]. POTASSIUM flagged incorrectly as L by [[id number] 31]. Abnormal flag removed on Oct 14, 2024@15:47 by [[id number] 31]. CHLORIDE reported incorrectly as 95 by [[id number] 31]. Changed to canc on Oct 14, 2024@15:47 by [[id number] 31]. CHLORIDE flagged incorrectly as L by [[id number] 31]. Abnormal flag removed on Oct 14, 2024@15:47 by [[id number] 31]. CO2 reported incorrectly as 26 by [[id number] 31]. Changed to canc on Oct 14, 2024@15:47 by [[id number] 31]. CALCIUM reported incorrectly as 9.3 by [[id number] 31]. Changed to canc on Oct 14, 2024@15:47 by [[id number] 31]. CHOLESTEROL reported incorrectly as 247 by [[id number] 31]. Changed to canc on Oct 14, 2024@15:47 by [[id number] 31]. CHOLESTEROL flagged incorrectly as H by [[id number] 31]. Abnormal flag removed on Oct 14, 2024@15:47 by [[id number] 31]. PROTEIN,TOT AL reported incorrectly as 7.9 by [[id number] 31]. Changed to canc on Oct 14, 2024@15:47 by [[id number] 31]. ALBUMIN reported incorrectly as 4.7 by [089252-UQ6 31]. Changed to canc on Oct 14, 2024@15:47 by [060888-IU8 31]. ALBUMIN flagged incorrectly as H by [706596-ZA1 31]. Abnormal flag removed on Oct 14, 2024@15:47 by [602330-QR5 31]. ALKALINE PHOSPHATASE reported incorrectly as 229 by [260926-GM4 31]. Changed to canc on Oct 14, 2024@15:47 by [374170-OR4 31]. ALKALINE PHOSPHATASE flagged incorrectly as H by [142289-WV0 31]. Abnormal flag removed on Oct 14, 2024@15:47 by [516541-HX8 31]. AST reported incorrectly as 209 by [467736-CG3 31]. Changed to canc on Oct 14, 2024@15:47 by [133711-DU7 31]. AST flagged incorrectly as H by [465003-ES8 31]. Abnormal flag removed on Oct 14, 2024@15:47 by [080780-JX5 31]. ALT reported incorrectly as 86 by [929506-TY5 31]. Changed to canc on Oct 14, 2024@15:47 by [410813-NU3 31]. ALT flagged incorrectly as H by [328042-QX3 31]. Abnormal flag removed on Oct 14, 2024@15:47 by [321670-LQ7 31]. TRIGLYCERID E reported incorrectly as 232 by [494999-RL0 31]. Changed to canc on Oct 14, 2024@15:47 by [856391-HO9 31]. TRIGLYCERID E flagged incorrectly as H by [108245-HF5 31]. Abnormal flag removed on Oct 14, 2024@15:47 by [411435-JW0 31]. LDL calculated reported incorrectly as 166 by [938235-LU8 31]. Changed to canc on Oct 14, 2024@15:47 by [163215-EC8 31]. LDL calculated flagged incorrectly as H by [839367-XF0 31]. Abnormal flag removed on Oct 14, 2024@15:47 by [538863-LS1 31]. HDL CHOLESTEROL reported incorrectly as 35 by [902258-LV4 31]. Changed to canc on Oct 14, 2024@15:47 by [218416-PX6 31]. HDL CHOLESTEROL flagged incorrectly as L by [178723-ZQ9 31]. Abnormal flag removed on Oct 14, 2024@15:47 by [947502-BO6 31]. BILIRUBIN, TOTAL reported incorrectly as 0.9 by [209846-KB2 31]. Changed to canc on Oct 14, 2024@15:47 by [894793-QF3 31]. CREATININE, Serum reported incorrectly as 0.53 by [532529-DC4 31]. Changed to canc on Oct 14, 2024@15:47 by [328788-BN3 31]. CREATININE, Serum flagged incorrectly as L by [747636-US8 31]. Abnormal flag removed on Oct 14, 2024@15:47 by [950569-AM9 31]. eGFR(CKD-EP I 2020) reported incorrectly as >90 by [078183-XW3 31]. Changed to canc on Oct 14, 2024@15:47 by [045696-BP0 31]. Ordering Provider: DELORES JENSEN Report Released Date/Time: Sep 11, 2024 03:56 PM Reporting Lab: [facility] Per [address] [address] Performing Lab: [facility] Via Response TechnologiesUSE[address] [address] [facility] Per VicesUSE [facility] BASIC METABOLI C PANEL (non-fas ting) CARBON DIOXIDE, TOTAL [MOLES/VOL UME] IN SERUM OR PLASMA cancmeq/ L 23 - 10/13 Specimen Type: SERUM Comment: GLUCOSE reported incorrectly as 116 by [[id number]-LG9 31]. Changed to canc on Oct 14, 2024@15:47 by [888221-BA0 31]. GLUCOSE flagged incorrectly as H by [014833-CG6 31]. Abnormal flag removed on Oct 14, 2024@15:47 by [073092-PN5 31]. UREA NITROGEN reported incorrectly as 4 by [454046-WR1 31]. Changed to canc on Oct 14, 2024@15:47 by [996628-RY6 31]. UREA NITROGEN flagged incorrectly as L by [628668-GK8 31]. Abnormal flag removed on Oct 14, 2024@15:47 by [589500-HO6 31]. SODIUM reported incorrectly as 136 by [777664-PB8 31]. Changed to canc on Oct 14, 2024@15:47 by [706684-KQ3 31]. POTASSIUM reported incorrectly as 3.4 by [452978-ZK5 31]. Changed to canc on Oct 14, 2024@15:47 by [038448-IK5 31]. POTASSIUM flagged incorrectly as L by [262018-NK2 31]. Abnormal flag removed on Oct 14, 2024@15:47 by [183450-WP8 31]. CHLORIDE reported incorrectly as 95 by [935353-NS6 31]. Changed to canc on Oct 14, 2024@15:47 by [411608-CD4 31]. CHLORIDE flagged incorrectly as L by [739780-SH3 31]. Abnormal flag removed on Oct 14, 2024@15:47 by [037158-UL7 31]. CO2 reported incorrectly as 26 by [998753-IN1 31]. Changed to canc on Oct 14, 2024@15:47 by [670857-NB3 31]. CALCIUM reported incorrectly as 9.3 by [969347-IX3 31]. Changed to canc on Oct 14, 2024@15:47 by [462291-IF1 31]. CHOLESTEROL reported incorrectly as 247 by [667622-UC4 31]. Changed to canc on Oct 14, 2024@15:47 by [451081-WU7 31]. CHOLESTEROL flagged incorrectly as H by [585772-HL1 31]. Abnormal flag removed on Oct 14, 2024@15:47 by [004115-MI9 31]. PROTEIN,TOT AL reported incorrectly as 7.9 by [684557-IZ6 31]. Changed to canc on Oct 14, 2024@15:47 by [633900-FN8 31]. ALBUMIN reported incorrectly as 4.7 by [672321-KJ1 31]. Changed to canc on Oct 14, 2024@15:47 by [624643-RO1 31]. ALBUMIN flagged incorrectly as H by [474655-PB2 31]. Abnormal flag removed on Oct 14, 2024@15:47 by [054244-CU5 31]. ALKALINE PHOSPHATASE reported incorrectly as 229 by [168086-KV4 31]. Changed to canc on Oct 14, 2024@15:47 by [414380-HB8 31]. ALKALINE PHOSPHATASE flagged incorrectly as H by [484025-ZW2 31]. Abnormal flag removed on Oct 14, 2024@15:47 by [713598-OA7 31]. AST reported incorrectly as 209 by [371464-ZI6 31]. Changed to canc on Oct 14, 2024@15:47 by [220543-JQ2 31]. AST flagged incorrectly as H by [917850-RA7 31]. Abnormal flag removed on Oct 14, 2024@15:47 by [627865-KG9 31]. ALT reported incorrectly as 86 by [998356-ZJ1 31]. Changed to canc on Oct 14, 2024@15:47 by [311010-YL0 31]. ALT flagged incorrectly as H by [174421-DN9 31]. Abnormal flag removed on Oct 14, 2024@15:47 by [962606-ZO1 31]. TRIGLYCERID E reported incorrectly as 232 by [365346-PR8 31]. Changed to canc on Oct 14, 2024@15:47 by [288160-BL7 31]. TRIGLYCERID E flagged incorrectly as H by [740458-ES6 31]. Abnormal flag removed on Oct 14, 2024@15:47 by [201617-CR0 31]. LDL calculated reported incorrectly as 166 by [632908-YA7 31]. Changed to canc on Oct 14, 2024@15:47 by [088106-QJ6 31]. LDL calculated flagged incorrectly as H by [912058-NY5 31]. Abnormal flag removed on Oct 14, 2024@15:47 by [731069-FT1 31]. HDL CHOLESTEROL reported incorrectly as 35 by [902420-HT6 31]. Changed to canc on Oct 14, 2024@15:47 by [274775-TA8 31]. HDL CHOLESTEROL flagged incorrectly as L by [593637-YG1 31]. Abnormal flag removed on Oct 14, 2024@15:47 by [331795-DO2 31]. BILIRUBIN, TOTAL reported incorrectly as 0.9 by [060809-MG0 31]. Changed to canc on Oct 14, 2024@15:47 by [176446-HI5 31]. CREATININE, Serum reported incorrectly as 0.53 by [463673-VL7 31]. Changed to canc on Oct 14, 2024@15:47 by [083910-OC4 31]. CREATININE, Serum flagged incorrectly as L by [072922-CG2 31]. Abnormal flag removed on Oct 14, 2024@15:47 by [744469-RV3 31]. eGFR(CKD-EP I 2020) reported incorrectly as >90 by [957870-NP0 31]. Changed to canc on Oct 14, 2024@15:47 by [997070-OJ9 31]. Ordering Provider: DELORES JENSEN Report Released Date/Time: Sep 11, 2024 03:56 PM Reporting Lab: [facility] Per [address] [address] Performing Lab: [facility] Via Response TechnologiesUSE[address] [address] [facility] Per [facility]icesMAR[facility] BASIC METABOLI C PANEL (non-fas ting) CALCIUM [MASS/VOLU ME] IN SERUM OR PLASMA cancmg/d L 8.8 - 10 10/13 Specimen Type: SERUM Comment: GLUCOSE reported incorrectly as 116 by [851261-US6 31]. Changed to canc on Oct 14, 2024@15:47 by [894658-AB7 31]. GLUCOSE flagged incorrectly as H by [711066-DB3 31]. Abnormal flag removed on Oct 14, 2024@15:47 by [436269-LY4 31]. UREA NITROGEN reported incorrectly as 4 by [149763-EE2 31]. Changed to canc on Oct 14, 2024@15:47 by [841571-HS6 31]. UREA NITROGEN flagged incorrectly as L by [226794-OQ3 31]. Abnormal flag removed on Oct 14, 2024@15:47 by [589020-AY2 31]. SODIUM reported incorrectly as 136 by [017042-OC8 31]. Changed to canc on Oct 14, 2024@15:47 by [432837-HU0 31]. POTASSIUM reported incorrectly as 3.4 by [899608-KZ3 31]. Changed to canc on Oct 14, 2024@15:47 by [418852-FB2 31]. POTASSIUM flagged incorrectly as L by [085766-UO0 31]. Abnormal flag removed on Oct 14, 2024@15:47 by [106614-PB5 31]. CHLORIDE reported incorrectly as 95 by [245976-PG5 31]. Changed to canc on Oct 14, 2024@15:47 by [349280-FU9 31]. CHLORIDE flagged incorrectly as L by [408217-OL4 31]. Abnormal flag removed on Oct 14, 2024@15:47 by [114009-MY5 31]. CO2 reported incorrectly as 26 by [341698-FA8 31]. Changed to canc on Oct 14, 2024@15:47 by [537780-PF9 31]. CALCIUM reported incorrectly as 9.3 by [783743-DH2 31]. Changed to canc on Oct 14, 2024@15:47 by [810252-IF3 31]. CHOLESTEROL reported incorrectly as 247 by [044313-KY4 31]. Changed to canc on Oct 14, 2024@15:47 by [051243-WF6 31]. CHOLESTEROL flagged incorrectly as H by [014746-MD4 31]. Abnormal flag removed on Oct 14, 2024@15:47 by [327929-UP8 31]. PROTEIN,TOT AL reported incorrectly as 7.9 by [082649-YG2 31]. Changed to canc on Oct 14, 2024@15:47 by [127079-PW7 31]. ALBUMIN reported incorrectly as 4.7 by [752172-KU2 31]. Changed to canc on Oct 14, 2024@15:47 by [012327-OL2 31]. ALBUMIN flagged incorrectly as H by [334211-ZA3 31]. Abnormal flag removed on Oct 14, 2024@15:47 by [334598-JE7 31]. ALKALINE PHOSPHATASE reported incorrectly as 229 by [870453-RC6 31]. Changed to canc on Oct 14, 2024@15:47 by [437494-ZN0 31]. ALKALINE PHOSPHATASE flagged incorrectly as H by [833886-XA9 31]. Abnormal flag removed on Oct 14, 2024@15:47 by [107152-TA3 31]. AST reported incorrectly as 209 by [998883-JN9 31]. Changed to canc on Oct 14, 2024@15:47 by [221397-DR6 31]. AST flagged incorrectly as H by [745507-YB6 31]. Abnormal flag removed on Oct 14, 2024@15:47 by [939263-QW8 31]. ALT reported incorrectly as 86 by [315116-FQ3 31]. Changed to canc on Oct 14, 2024@15:47 by [077399-XK3 31]. ALT flagged incorrectly as H by [036348-QA4 31]. Abnormal flag removed on Oct 14, 2024@15:47 by [334329-JE0 31]. TRIGLYCERID E reported incorrectly as 232 by [272174-EF6 31]. Changed to canc on Oct 14, 2024@15:47 by [137796-FX3 31]. TRIGLYCERID E flagged incorrectly as H by [438587-IX3 31]. Abnormal flag removed on Oct 14, 2024@15:47 by [720377-HH5 31]. LDL calculated reported incorrectly as 166 by [484273-HK6 31]. Changed to canc on Oct 14, 2024@15:47 by [897706-TQ4 31]. LDL calculated flagged incorrectly as H by [176589-ME6 31]. Abnormal flag removed on Oct 14, 2024@15:47 by [644480-DD0 31]. HDL CHOLESTEROL reported incorrectly as 35 by [788158-ZI9 31]. Changed to canc on Oct 14, 2024@15:47 by [876205-YY1 31]. HDL CHOLESTEROL flagged incorrectly as L by [886729-FN6 31]. Abnormal flag removed on Oct 14, 2024@15:47 by [785599-HD3 31]. BILIRUBIN, TOTAL reported incorrectly as 0.9 by [702998-BS6 31]. Changed to canc on Oct 14, 2024@15:47 by [553136-UB4 31]. CREATININE, Serum reported incorrectly as 0.53 by [402878-UT0 31]. Changed to canc on Oct 14, 2024@15:47 by [100608-TF6 31]. CREATININE, Serum flagged incorrectly as L by [606451-SL2 31]. Abnormal flag removed on Oct 14, 2024@15:47 by [637734-GL6 31]. eGFR(CKD-EP I 2020) reported incorrectly as >90 by [690866-QS8 31]. Changed to canc on Oct 14, 2024@15:47 by [928079-HT6 31]. Ordering Provider: DELORES JENSEN Report Released Date/Time: Sep 11, 2024 03:56 PM Reporting Lab: [place] [facility] [employer]USE[employer] [address] [address] Performing Lab: [place] [facility]TR[facility] [employer] TechnologiesUSEArt [employer] [address] [address] [facility] [employer]N Via Response TechnologiesUSE [facility] BASIC METABOLI C PANEL (non-fas ting) CREATININE [MASS/VOLU ME] IN SERUM OR PLASMA cancmg/d L 0.72 - 1.25 10/13 L Specimen Type: SERUM Comment: GLUCOSE reported incorrectly as 116 by [695681-MU0 31]. Changed to canc on Oct 14, 2024@15:47 by [988413-CV6 31]. GLUCOSE flagged incorrectly as H by [174922-MY4 31]. Abnormal flag removed on Oct 14, 2024@15:47 by [834075-SO2 31]. UREA NITROGEN reported incorrectly as 4 by [390469-SO8 31]. Changed to canc on Oct 14, 2024@15:47 by [926245-FW4 31]. UREA NITROGEN flagged incorrectly as L by [555617-NR1 31]. Abnormal flag removed on Oct 14, 2024@15:47 by [149291-AP3 31]. SODIUM reported incorrectly as 136 by [372244-CO8 31]. Changed to canc on Oct 14, 2024@15:47 by [410591-LN9 31]. POTASSIUM reported incorrectly as 3.4 by [861360-VR3 31]. Changed to canc on Oct 14, 2024@15:47 by [802083-BE7 31]. POTASSIUM flagged incorrectly as L by [218694-AJ8 31]. Abnormal flag removed on Oct 14, 2024@15:47 by [566140-WK6 31]. CHLORIDE reported incorrectly as 95 by [937890-GM3 31]. Changed to canc on Oct 14, 2024@15:47 by [111671-TV7 31]. CHLORIDE flagged incorrectly as L by [138685-YT3 31]. Abnormal flag removed on Oct 14, 2024@15:47 by [539929-ZS9 31]. CO2 reported incorrectly as 26 by [237684-GR3 31]. Changed to canc on Oct 14, 2024@15:47 by [898858-JP7 31]. CALCIUM reported incorrectly as 9.3 by [560029-QH3 31]. Changed to canc on Oct 14, 2024@15:47 by [522819-OG3 31]. CHOLESTEROL reported incorrectly as 247 by [089175-LU8 31]. Changed to canc on Oct 14, 2024@15:47 by [691469-NC8 31]. CHOLESTEROL flagged incorrectly as H by [848690-XH2 31]. Abnormal flag removed on Oct 14, 2024@15:47 by [023393-FE1 31]. PROTEIN,TOT AL reported incorrectly as 7.9 by [488401-VJ6 31]. Changed to canc on Oct 14, 2024@15:47 by [796780-XR2 31]. ALBUMIN reported incorrectly as 4.7 by [309804-GC7 31]. Changed to canc on Oct 14, 2024@15:47 by [396452-JV4 31]. ALBUMIN flagged incorrectly as H by [774568-XB9 31]. Abnormal flag removed on Oct 14, 2024@15:47 by [220588-GJ9 31]. ALKALINE PHOSPHATASE reported incorrectly as 229 by [718452-QD5 31]. Changed to canc on Oct 14, 2024@15:47 by [594285-BQ1 31]. ALKALINE PHOSPHATASE flagged incorrectly as H by [968326-WC5 31]. Abnormal flag removed on Oct 14, 2024@15:47 by [900448-TV8 31]. AST reported incorrectly as 209 by [773469-YN5 31]. Changed to canc on Oct 14, 2024@15:47 by [327407-WF8 31]. AST flagged incorrectly as H by [604534-ZB0 31]. Abnormal flag removed on Oct 14, 2024@15:47 by [773939-DO0 31]. ALT reported incorrectly as 86 by [705969-WE6 31]. Changed to canc on Oct 14, 2024@15:47 by [707952-AT5 31]. ALT flagged incorrectly as H by [074917-OJ8 31]. Abnormal flag removed on Oct 14, 2024@15:47 by [727856-TP6 31]. TRIGLYCERID E reported incorrectly as 232 by [199309-EH6 31]. Changed to canc on Oct 14, 2024@15:47 by [155567-WK6 31]. TRIGLYCERID E flagged incorrectly as H by [805589-HS5 31]. Abnormal flag removed on Oct 14, 2024@15:47 by [828616-TE3 31]. LDL calculated reported incorrectly as 166 by [424324-ZQ6 31]. Changed to canc on Oct 14, 2024@15:47 by [126423-SK2 31]. LDL calculated flagged incorrectly as H by [765927-LX3 31]. Abnormal flag removed on Oct 14, 2024@15:47 by [425457-RR2 31]. HDL CHOLESTEROL reported incorrectly as 35 by [093295-OJ1 31]. Changed to canc on Oct 14, 2024@15:47 by [173198-YE6 31]. HDL CHOLESTEROL flagged incorrectly as L by [431265-IX8 31]. Abnormal flag removed on Oct 14, 2024@15:47 by [491261-LR7 31]. BILIRUBIN, TOTAL reported incorrectly as 0.9 by [587197-RW0 31]. Changed to canc on Oct 14, 2024@15:47 by [008471-SP7 31]. CREATININE, Serum reported incorrectly as 0.53 by [210500-OM9 31]. Changed to canc on Oct 14, 2024@15:47 by [503322-GM2 31]. CREATININE, Serum flagged incorrectly as L by [761134-WR1 31]. Abnormal flag removed on Oct 14, 2024@15:47 by [282055-PV2 31]. eGFR(CKD-EP I 2020) reported incorrectly as >90 by [640443-YX6 31]. Changed to canc on Oct 14, 2024@15:47 by [336182-SW6 31]. Ordering Provider: DELORES JENSEN Report Released Date/Time: Sep 11, 2024 03:56 PM Reporting Lab: [place] [facility] [employer]USE[employer] [address] [address] Performing Lab: NM Stand OfferRL [facility] Per [facility]CHUS[facility] [address] [facility] [address] [place] Stand OfferRL [facility] Per VicesCHUSE [facility] BASIC METABOLI C PANEL (non-fas ting) GLOMERULAR FILTRATION RATE/1.73 SQ M.PREDICTE D [VOLUME RATE/AREA] IN SERUM, PLASMA OR BLOOD BY CREATININE -BASED FORMULA (CKD-EPI 2020) cancmL/m in 60 10/13 Specimen Type: SERUM Comment: GLUCOSE reported incorrectly as 116 by [258444-OS5 31]. Changed to canc on Oct 14, 2024@15:47 by [167043-HF2 31]. GLUCOSE flagged incorrectly as H by [000333-XE3 31]. Abnormal flag removed on Oct 14, 2024@15:47 by [057771-ZQ8 31]. UREA NITROGEN reported incorrectly as 4 by [774042-RG3 31]. Changed to canc on Oct 14, 2024@15:47 by [893954-JN1 31]. UREA NITROGEN flagged incorrectly as L by [407252-MP8 31]. Abnormal flag removed on Oct 14, 2024@15:47 by [726878-EQ8 31]. SODIUM reported incorrectly as 136 by [561112-KJ2 31]. Changed to canc on Oct 14, 2024@15:47 by [025758-XN6 31]. POTASSIUM reported incorrectly as 3.4 by [127651-RF8 31]. Changed to canc on Oct 14, 2024@15:47 by [500623-QS3 31]. POTASSIUM flagged incorrectly as L by [276151-CI6 31]. Abnormal flag removed on Oct 14, 2024@15:47 by [123705-TG9 31]. CHLORIDE reported incorrectly as 95 by [236458-TL3 31]. Changed to canc on Oct 14, 2024@15:47 by [281929-MV6 31]. CHLORIDE flagged incorrectly as L by [117197-JE2 31]. Abnormal flag removed on Oct 14, 2024@15:47 by [724179-AR3 31]. CO2 reported incorrectly as 26 by [941792-ZI7 31]. Changed to canc on Oct 14, 2024@15:47 by [577873-GP7 31]. CALCIUM reported incorrectly as 9.3 by [151600-ZU5 31]. Changed to canc on Oct 14, 2024@15:47 by [479163-WI2 31]. CHOLESTEROL reported incorrectly as 247 by [701674-NL3 31]. Changed to canc on Oct 14, 2024@15:47 by [548340-IS2 31]. CHOLESTEROL flagged incorrectly as H by [426001-ZO0 31]. Abnormal flag removed on Oct 14, 2024@15:47 by [777682-UP7 31]. PROTEIN,TOT AL reported incorrectly as 7.9 by [695132-IZ0 31]. Changed to canc on Oct 14, 2024@15:47 by [199574-PD7 31]. ALBUMIN reported incorrectly as 4.7 by [994156-ZE4 31]. Changed to canc on Oct 14, 2024@15:47 by [958510-PQ7 31]. ALBUMIN flagged incorrectly as H by [296315-VP6 31]. Abnormal flag removed on Oct 14, 2024@15:47 by [918990-MS9 31]. ALKALINE PHOSPHATASE reported incorrectly as 229 by [048017-HO9 31]. Changed to canc on Oct 14, 2024@15:47 by [147345-MA9 31]. ALKALINE PHOSPHATASE flagged incorrectly as H by [282715-OZ4 31]. Abnormal flag removed on Oct 14, 2024@15:47 by [951397-LW9 31]. AST reported incorrectly as 209 by [193007-MG2 31]. Changed to canc on Oct 14, 2024@15:47 by [068649-HD0 31]. AST flagged incorrectly as H by [720869-KP7 31]. Abnormal flag removed on Oct 14, 2024@15:47 by [938199-PS7 31]. ALT reported incorrectly as 86 by [286347-JY9 31]. Changed to canc on Oct 14, 2024@15:47 by [687731-SE6 31]. ALT flagged incorrectly as H by [035066-FC9 31]. Abnormal flag removed on Oct 14, 2024@15:47 by [160209-NM8 31]. TRIGLYCERID E reported incorrectly as 232 by [430436-GJ8 31]. Changed to canc on Oct 14, 2024@15:47 by [051124-CB3 31]. TRIGLYCERID E flagged incorrectly as H by [052413-LB5 31]. Abnormal flag removed on Oct 14, 2024@15:47 by [670965-SH7 31]. LDL calculated reported incorrectly as 166 by [466110-PE0 31]. Changed to canc on Oct 14, 2024@15:47 by [052215-IQ8 31]. LDL calculated flagged incorrectly as H by [365884-WW4 31]. Abnormal flag removed on Oct 14, 2024@15:47 by [902060-XO0 31]. HDL CHOLESTEROL reported incorrectly as 35 by [535414-PA1 31]. Changed to canc on Oct 14, 2024@15:47 by [543404-EV2 31]. HDL CHOLESTEROL flagged incorrectly as L by [564986-LE1 31]. Abnormal flag removed on Oct 14, 2024@15:47 by [745014-WQ7 31]. BILIRUBIN, TOTAL reported incorrectly as 0.9 by [803506-JB4 31]. Changed to canc on Oct 14, 2024@15:47 by [372971-YA7 31]. CREATININE, Serum reported incorrectly as 0.53 by [267015-HZ6 31]. Changed to canc on Oct 14, 2024@15:47 by [678188-MA6 31]. CREATININE, Serum flagged incorrectly as L by [209783-FJ3 31]. Abnormal flag removed on Oct 14, 2024@15:47 by [373906-NM6 31]. eGFR(CKD-EP I 2020) reported incorrectly as >90 by [391148-OX5 31]. Changed to canc on Oct 14, 2024@15:47 by [245090-VX9 31]. Ordering Provider: DELORES JENSEN Report Released Date/Time: Sep 11, 2024 03:56 PM Reporting Lab: [place] [facility] [employer] [address] [address] Performing Lab: [place] Stand OfferR [facility] [employer] TechnologiesUSE[employer] [address] [address] [place] [facility] [place] [facility] Via Response TechnologiesUSE [facility] LIVER FUNCTION PROTEIN [MASS/VOLU ME] IN SERUM OR PLASMA cancg/dL 6.4 - 8.3 10/13 Specimen Type: SERUM Comment: GLUCOSE reported incorrectly as 116 by [657831-QW9 31]. Changed to canc on Oct 14, 2024@15:47 by [458222-KN0 31]. GLUCOSE flagged incorrectly as H by [046171-QJ8 31]. Abnormal flag removed on Oct 14, 2024@15:47 by [543758-JM5 31]. UREA NITROGEN reported incorrectly as 4 by [678312-JV2 31]. Changed to canc on Oct 14, 2024@15:47 by [183498-EJ0 31]. UREA NITROGEN flagged incorrectly as L by [343933-YP1 31]. Abnormal flag removed on Oct 14, 2024@15:47 by [551499-BL5 31]. SODIUM reported incorrectly as 136 by [540106-WC6 31]. Changed to canc on Oct 14, 2024@15:47 by [992713-NF2 31]. POTASSIUM reported incorrectly as 3.4 by [484605-XJ6 31]. Changed to canc on Oct 14, 2024@15:47 by [922907-TM4 31]. POTASSIUM flagged incorrectly as L by [442422-HE6 31]. Abnormal flag removed on Oct 14, 2024@15:47 by [954333-OH9 31]. CHLORIDE reported incorrectly as 95 by [414706-ES8 31]. Changed to canc on Oct 14, 2024@15:47 by [850892-JQ9 31]. CHLORIDE flagged incorrectly as L by [560663-BL2 31]. Abnormal flag removed on Oct 14, 2024@15:47 by [636338-NE4 31]. CO2 reported incorrectly as 26 by [000126-FR1 31]. Changed to canc on Oct 14, 2024@15:47 by [017021-BJ0 31]. CALCIUM reported incorrectly as 9.3 by [175985-OJ1 31]. Changed to canc on Oct 14, 2024@15:47 by [601738-DN5 31]. CHOLESTEROL reported incorrectly as 247 by [915517-FX6 31]. Changed to canc on Oct 14, 2024@15:47 by [917121-HJ9 31]. CHOLESTEROL flagged incorrectly as H by [552913-HG3 31]. Abnormal flag removed on Oct 14, 2024@15:47 by [070869-SQ1 31]. PROTEIN,TOT AL reported incorrectly as 7.9 by [696198-YH8 31]. Changed to canc on Oct 14, 2024@15:47 by [292679-SR3 31]. ALBUMIN reported incorrectly as 4.7 by [918895-BN9 31]. Changed to canc on Oct 14, 2024@15:47 by [072829-HT6 31]. ALBUMIN flagged incorrectly as H by [996881-NZ4 31]. Abnormal flag removed on Oct 14, 2024@15:47 by [[id number] 31]. ALKALINE PHOSPHATASE reported incorrectly as 229 by [[id number]-[id number] 31]. Changed to canc on Oct 14, 2024@15:47 by [[id number] 31]. ALKALINE PHOSPHATASE flagged incorrectly as H by [[id number] 31]. Abnormal flag removed on Oct 14, 2024@15:47 by [[id number] 31]. AST reported incorrectly as 209 by [[id number]-[id number] 31]. Changed to canc on Oct 14, 2024@15:47 by [[id number] 31]. AST flagged incorrectly as H by [[id number]-[id number] 31]. Abnormal flag removed on Oct 14, 2024@15:47 by [[id number]-OS1 31]. ALT reported incorrectly as 86 by [[id number]-OD8 31]. Changed to canc on Oct 14, 2024@15:47 by [[id number] 31]. ALT flagged incorrectly as H by [[id number]-[id number] 31]. Abnormal flag removed on Oct 14, 2024@15:47 by [[id number] 31]. TRIGLYCERID E reported incorrectly as 232 by [[id number]-CK2 31]. Changed to canc on Oct 14, 2024@15:47 by [[id number]-MZ3 31]. TRIGLYCERID E flagged incorrectly as H by [[id number]-BV9 31]. Abnormal flag removed on Oct 14, 2024@15:47 by [[id number]-SA1 31]. LDL calculated reported incorrectly as 166 by [[id number]-CE1 31]. Changed to canc on Oct 14, 2024@15:47 by [[id number]-[id number] 31]. LDL calculated flagged incorrectly as H by [[id number] 31]. Abnormal flag removed on Oct 14, 2024@15:47 by [[id number]-ZC5 31]. HDL CHOLESTEROL reported incorrectly as 35 by [[id number]-SL2 31]. Changed to canc on Oct 14, 2024@15:47 by [[id number]-MN7 31]. HDL CHOLESTEROL flagged incorrectly as L by [[id number]-OX8 31]. Abnormal flag removed on Oct 14, 2024@15:47 by [[id number]-IR6 31]. BILIRUBIN, TOTAL reported incorrectly as 0.9 by [[id number]-KX5 31]. Changed to canc on Oct 14, 2024@15:47 by [[id number]-[id number] 31]. CREATININE, Serum reported incorrectly as 0.53 by [[id number]-CR2 31]. Changed to canc on Oct 14, 2024@15:47 by [[id number]-JR4 31]. CREATININE, Serum flagged incorrectly as L by [[id number]-CF7 31]. Abnormal flag removed on Oct 14, 2024@15:47 by [[id number]-FP9 31]. eGFR(CKD-EP I 2020) reported incorrectly as >90 by [[id number]-EG8 31]. Changed to canc on Oct 14, 2024@15:47 by [[id number]-VH0 31]. Ordering Provider: DELORES JENSEN Report Released Date/Time: Sep 11, 2024 03:56 PM Reporting Lab: [place] [facility] Per VicesUSEEAST[facility] [address] [facility] [address] Performing Lab: [place] Stand OfferRLAUREL [facility]AK[facility]ENTERTRN Per VicesUSEEASTERN [facility] [address] [facility] [address] [facility] Per VicesUSE [facility] LIVER FUNCTION ALBUMIN [MASS/VOLU ME] IN SERUM OR PLASMA BY BROMOCRESO L PURPLE (BCP) DYE BINDING METHOD cancg/dL 3.2 - 4.6 10/13 H Specimen Type: SERUM Comment: GLUCOSE reported incorrectly as 116 by [[id number]-[id number] 31]. Changed to canc on Oct 14, 2024@15:47 by [[id number]-YY1 31]. GLUCOSE flagged incorrectly as H by [[id number]-LY7 31]. Abnormal flag removed on Oct 14, 2024@15:47 by [[id number]-IX2 31]. UREA NITROGEN reported incorrectly as 4 by [765178-YY1 31]. Changed to canc on Oct 14, 2024@15:47 by [[id number]-RU2 31]. UREA NITROGEN flagged incorrectly as L by [887849-ED0 31]. Abnormal flag removed on Oct 14, 2024@15:47 by [362937-YY9 31]. SODIUM reported incorrectly as 136 by [618041-WV4 31]. Changed to canc on Oct 14, 2024@15:47 by [250323-LC2 31]. POTASSIUM reported incorrectly as 3.4 by [882728-TB5 31]. Changed to canc on Oct 14, 2024@15:47 by [624991-WT3 31]. POTASSIUM flagged incorrectly as L by [471996-ZB9 31]. Abnormal flag removed on Oct 14, 2024@15:47 by [255943-EI4 31]. CHLORIDE reported incorrectly as 95 by [908745-LR2 31]. Changed to canc on Oct 14, 2024@15:47 by [961831-GU7 31]. CHLORIDE flagged incorrectly as L by [299340-UQ4 31]. Abnormal flag removed on Oct 14, 2024@15:47 by [648767-ZH2 31]. CO2 reported incorrectly as 26 by [378414-IC2 31]. Changed to canc on Oct 14, 2024@15:47 by [713788-DX0 31]. CALCIUM reported incorrectly as 9.3 by [880561-OL6 31]. Changed to canc on Oct 14, 2024@15:47 by [511566-HF8 31]. CHOLESTEROL reported incorrectly as 247 by [427991-AI4 31]. Changed to canc on Oct 14, 2024@15:47 by [855583-RL5 31]. CHOLESTEROL flagged incorrectly as H by [004412-WJ2 31]. Abnormal flag removed on Oct 14, 2024@15:47 by [507747-HD3 31]. PROTEIN,TOT AL reported incorrectly as 7.9 by [633547-GQ6 31]. Changed to canc on Oct 14, 2024@15:47 by [341128-AG5 31]. ALBUMIN reported incorrectly as 4.7 by [456073-PZ5 31]. Changed to canc on Oct 14, 2024@15:47 by [053503-UV4 31]. ALBUMIN flagged incorrectly as H by [505800-VT1 31]. Abnormal flag removed on Oct 14, 2024@15:47 by [022580-ON9 31]. ALKALINE PHOSPHATASE reported incorrectly as 229 by [439021-JM0 31]. Changed to canc on Oct 14, 2024@15:47 by [378561-YC4 31]. ALKALINE PHOSPHATASE flagged incorrectly as H by [464411-CJ4 31]. Abnormal flag removed on Oct 14, 2024@15:47 by [023280-JF6 31]. AST reported incorrectly as 209 by [458891-LE9 31]. Changed to canc on Oct 14, 2024@15:47 by [429141-VX6 31]. AST flagged incorrectly as H by [966073-XH7 31]. Abnormal flag removed on Oct 14, 2024@15:47 by [346275-EI8 31]. ALT reported incorrectly as 86 by [694537-RX3 31]. Changed to canc on Oct 14, 2024@15:47 by [203945-HA2 31]. ALT flagged incorrectly as H by [473095-AN0 31]. Abnormal flag removed on Oct 14, 2024@15:47 by [156330-SE1 31]. TRIGLYCERID E reported incorrectly as 232 by [303244-AH1 31]. Changed to canc on Oct 14, 2024@15:47 by [539043-QO0 31]. TRIGLYCERID E flagged incorrectly as H by [338471-PL3 31]. Abnormal flag removed on Oct 14, 2024@15:47 by [990707-MW7 31]. LDL calculated reported incorrectly as 166 by [109282-ML5 31]. Changed to canc on Oct 14, 2024@15:47 by [233267-JY4 31]. LDL calculated flagged incorrectly as H by [169255-EC6 31]. Abnormal flag removed on Oct 14, 2024@15:47 by [522940-IB2 31]. HDL CHOLESTEROL reported incorrectly as 35 by [296315-TK2 31]. Changed to canc on Oct 14, 2024@15:47 by [389598-DY2 31]. HDL CHOLESTEROL flagged incorrectly as L by [602216-VS0 31]. Abnormal flag removed on Oct 14, 2024@15:47 by [952764-CK0 31]. BILIRUBIN, TOTAL reported incorrectly as 0.9 by [286852-MZ2 31]. Changed to canc on Oct 14, 2024@15:47 by [416643-FC9 31]. CREATININE, Serum reported incorrectly as 0.53 by [720005-RD4 31]. Changed to canc on Oct 14, 2024@15:47 by [397145-BB0 31]. CREATININE, Serum flagged incorrectly as L by [412304-RF5 31]. Abnormal flag removed on Oct 14, 2024@15:47 by [943365-VJ0 31]. eGFR(CKD-EP I 2020) reported incorrectly as >90 by [953203-IA3 31]. Changed to canc on Oct 14, 2024@15:47 by [227311-GY6 31]. Ordering Provider: DELORES JENSEN Report Released Date/Time: Sep 11, 2024 03:56 PM Reporting Lab: NM Stand Offer [email or web address] Via Response TechnologiesUSEEASTERN NIAGARA HOSPITAL [address] [facility] [address] Performing Lab: NM Stand OfferR [email or web address] Via Response TechnologiesUSEEASTERN NIAGARA HOSPITAL [address] [facility] [address] NM Stand Offer [email or web address] Per VicesCHUSE [facility] LIVER FUNCTION ALKALINE PHOSPHATAS E [ENZYMATIC ACTIVITY/V OLUME] IN SERUM OR PLASMA cancU/L 40 - 150 10/13 H Specimen Type: SERUM Comment: GLUCOSE reported incorrectly as 116 by [564241-GB4 31]. Changed to canc on Oct 14, 2024@15:47 by [661268-XX9 31]. GLUCOSE flagged incorrectly as H by [297732-BE7 31]. Abnormal flag removed on Oct 14, 2024@15:47 by [445841-WG9 31]. UREA NITROGEN reported incorrectly as 4 by [253540-GY4 31]. Changed to canc on Oct 14, 2024@15:47 by [287332-QK6 31]. UREA NITROGEN flagged incorrectly as L by [939711-UN1 31]. Abnormal flag removed on Oct 14, 2024@15:47 by [272085-PS3 31]. SODIUM reported incorrectly as 136 by [756246-JB7 31]. Changed to canc on Oct 14, 2024@15:47 by [084114-CX3 31]. POTASSIUM reported incorrectly as 3.4 by [967392-MH7 31]. Changed to canc on Oct 14, 2024@15:47 by [499778-WF4 31]. POTASSIUM flagged incorrectly as L by [526530-FN5 31]. Abnormal flag removed on Oct 14, 2024@15:47 by [017817-EM0 31]. CHLORIDE reported incorrectly as 95 by [079697-SW9 31]. Changed to canc on Oct 14, 2024@15:47 by [215094-XF9 31]. CHLORIDE flagged incorrectly as L by [392954-DG5 31]. Abnormal flag removed on Oct 14, 2024@15:47 by [697519-VO4 31]. CO2 reported incorrectly as 26 by [316022-FI0 31]. Changed to canc on Oct 14, 2024@15:47 by [578538-TT3 31]. CALCIUM reported incorrectly as 9.3 by [420029-BQ0 31]. Changed to canc on Oct 14, 2024@15:47 by [689403-QO5 31]. CHOLESTEROL reported incorrectly as 247 by [182411-VX7 31]. Changed to canc on Oct 14, 2024@15:47 by [863967-ML8 31]. CHOLESTEROL flagged incorrectly as H by [664928-LM8 31]. Abnormal flag removed on Oct 14, 2024@15:47 by [167525-LI3 31]. PROTEIN,TOT AL reported incorrectly as 7.9 by [164760-YN5 31]. Changed to canc on Oct 14, 2024@15:47 by [056750-ST7 31]. ALBUMIN reported incorrectly as 4.7 by [598807-QS1 31]. Changed to canc on Oct 14, 2024@15:47 by [[id number]-LK0 31]. ALBUMIN flagged incorrectly as H by [885409-HV0 31]. Abnormal flag removed on Oct 14, 2024@15:47 by [029780-IX2 31]. ALKALINE PHOSPHATASE reported incorrectly as 229 by [794536-KF8 31]. Changed to canc on Oct 14, 2024@15:47 by [704995-ZU6 31]. ALKALINE PHOSPHATASE flagged incorrectly as H by [256101-FM4 31]. Abnormal flag removed on Oct 14, 2024@15:47 by [695299-SK4 31]. AST reported incorrectly as 209 by [881061-IV1 31]. Changed to canc on Oct 14, 2024@15:47 by [911479-JL7 31]. AST flagged incorrectly as H by [705171-OS5 31]. Abnormal flag removed on Oct 14, 2024@15:47 by [211947-ZK8 31]. ALT reported incorrectly as 86 by [151086-LQ4 31]. Changed to canc on Oct 14, 2024@15:47 by [551581-MP8 31]. ALT flagged incorrectly as H by [630555-MJ4 31]. Abnormal flag removed on Oct 14, 2024@15:47 by [511925-AU6 31]. TRIGLYCERID E reported incorrectly as 232 by [591597-XW5 31]. Changed to canc on Oct 14, 2024@15:47 by [345751-DH6 31]. TRIGLYCERID E flagged incorrectly as H by [943014-YG8 31]. Abnormal flag removed on Oct 14, 2024@15:47 by [132677-NL2 31]. LDL calculated reported incorrectly as 166 by [835191-MG4 31]. Changed to canc on Oct 14, 2024@15:47 by [816676-YD4 31]. LDL calculated flagged incorrectly as H by [271180-DR3 31]. Abnormal flag removed on Oct 14, 2024@15:47 by [599704-SM4 31]. HDL CHOLESTEROL reported incorrectly as 35 by [775878-KT0 31]. Changed to canc on Oct 14, 2024@15:47 by [341155-HL3 31]. HDL CHOLESTEROL flagged incorrectly as L by [402748-IP7 31]. Abnormal flag removed on Oct 14, 2024@15:47 by [516333-FB6 31]. BILIRUBIN, TOTAL reported incorrectly as 0.9 by [093597-GK4 31]. Changed to canc on Oct 14, 2024@15:47 by [247514-DU2 31]. CREATININE, Serum reported incorrectly as 0.53 by [599404-EV6 31]. Changed to canc on Oct 14, 2024@15:47 by [172448-WV5 31]. CREATININE, Serum flagged incorrectly as L by [389646-AC8 31]. Abnormal flag removed on Oct 14, 2024@15:47 by [918511-FF5 31]. eGFR(CKD-EP I 2020) reported incorrectly as >90 by [550373-JO9 31]. Changed to canc on Oct 14, 2024@15:47 by [983982-KJ7 31]. Ordering Provider: DELORES JENSEN Report Released Date/Time: Sep 11, 2024 03:56 PM Reporting Lab: [facility] Per [facility] [address] [facility] [address] Performing Lab: [facility]ITALUSEEAST[facility] [address] [facility] [address] [facility] LIVER FUNCTION ASPARTATE AMINOTRANS FERASE [ENZYMATIC ACTIVITY/V OLUME] IN SERUM OR PLASMA BY WITH P-5'-P cancU/L 5 - 34 10/13 H Specimen Type: SERUM Comment: GLUCOSE reported incorrectly as 116 by [207853-MV1 31]. Changed to canc on Oct 14, 2024@15:47 by [886056-DJ8 31]. GLUCOSE flagged incorrectly as H by [234527-QV0 31]. Abnormal flag removed on Oct 14, 2024@15:47 by [880116-UJ8 31]. UREA NITROGEN reported incorrectly as 4 by [525510-BM9 31]. Changed to canc on Oct 14, 2024@15:47 by [674770-UC7 31]. UREA NITROGEN flagged incorrectly as L by [162892-HB3 31]. Abnormal flag removed on Oct 14, 2024@15:47 by [589933-WJ6 31]. SODIUM reported incorrectly as 136 by [265319-HW5 31]. Changed to canc on Oct 14, 2024@15:47 by [560770-VU4 31]. POTASSIUM reported incorrectly as 3.4 by [314393-OK9 31]. Changed to canc on Oct 14, 2024@15:47 by [025990-FN9 31]. POTASSIUM flagged incorrectly as L by [150387-HV5 31]. Abnormal flag removed on Oct 14, 2024@15:47 by [148116-QQ3 31]. CHLORIDE reported incorrectly as 95 by [037648-MK4 31]. Changed to canc on Oct 14, 2024@15:47 by [044472-YV2 31]. CHLORIDE flagged incorrectly as L by [682252-XV4 31]. Abnormal flag removed on Oct 14, 2024@15:47 by [374586-RE5 31]. CO2 reported incorrectly as 26 by [886587-LF5 31]. Changed to canc on Oct 14, 2024@15:47 by [554746-KF7 31]. CALCIUM reported incorrectly as 9.3 by [702186-LV7 31]. Changed to canc on Oct 14, 2024@15:47 by [328963-RD3 31]. CHOLESTEROL reported incorrectly as 247 by [096323-GR0 31]. Changed to canc on Oct 14, 2024@15:47 by [400011-EN8 31]. CHOLESTEROL flagged incorrectly as H by [888261-SA6 31]. Abnormal flag removed on Oct 14, 2024@15:47 by [119500-AM0 31]. PROTEIN,TOT AL reported incorrectly as 7.9 by [723591-EI0 31]. Changed to canc on Oct 14, 2024@15:47 by [090248-HH1 31]. ALBUMIN reported incorrectly as 4.7 by [225934-PR7 31]. Changed to canc on Oct 14, 2024@15:47 by [741484-CA1 31]. ALBUMIN flagged incorrectly as H by [774553-XF0 31]. Abnormal flag removed on Oct 14, 2024@15:47 by [459425-ZV0 31]. ALKALINE PHOSPHATASE reported incorrectly as 229 by [340151-HL7 31]. Changed to canc on Oct 14, 2024@15:47 by [710591-FZ0 31]. ALKALINE PHOSPHATASE flagged incorrectly as H by [320593-KT5 31]. Abnormal flag removed on Oct 14, 2024@15:47 by [399384-OD6 31]. AST reported incorrectly as 209 by [698804-EE8 31]. Changed to canc on Oct 14, 2024@15:47 by [206923-CS3 31]. AST flagged incorrectly as H by [210672-EE2 31]. Abnormal flag removed on Oct 14, 2024@15:47 by [705923-FH0 31]. ALT reported incorrectly as 86 by [572385-BJ7 31]. Changed to canc on Oct 14, 2024@15:47 by [282451-LA7 31]. ALT flagged incorrectly as H by [414633-CV2 31]. Abnormal flag removed on Oct 14, 2024@15:47 by [226479-KU6 31]. TRIGLYCERID E reported incorrectly as 232 by [854809-VI5 31]. Changed to canc on Oct 14, 2024@15:47 by [884585-TO1 31]. TRIGLYCERID E flagged incorrectly as H by [343065-MB2 31]. Abnormal flag removed on Oct 14, 2024@15:47 by [190502-OR9 31]. LDL calculated reported incorrectly as 166 by [252851-SS7 31]. Changed to canc on Oct 14, 2024@15:47 by [307065-ZC3 31]. LDL calculated flagged incorrectly as H by [786359-OP9 31]. Abnormal flag removed on Oct 14, 2024@15:47 by [993058-ZR6 31]. HDL CHOLESTEROL reported incorrectly as 35 by [975932-GE2 31]. Changed to canc on Oct 14, 2024@15:47 by [554076-SP0 31]. HDL CHOLESTEROL flagged incorrectly as L by [353419-GN7 31]. Abnormal flag removed on Oct 14, 2024@15:47 by [417818-DB8 31]. BILIRUBIN, TOTAL reported incorrectly as 0.9 by [540186-GQ2 31]. Changed to canc on Oct 14, 2024@15:47 by [845197-SN0 31]. CREATININE, Serum reported incorrectly as 0.53 by [932965-PJ0 31]. Changed to canc on Oct 14, 2024@15:47 by [167632-BF6 31]. CREATININE, Serum flagged incorrectly as L by [589489-HQ4 31]. Abnormal flag removed on Oct 14, 2024@15:47 by [695448-LD3 31]. eGFR(CKD-EP I 2020) reported incorrectly as >90 by [980830-FT9 31]. Changed to canc on Oct 14, 2024@15:47 by [479541-FA6 31]. Ordering Provider: DELORES JENSEN Report Released Date/Time: Sep 11, 2024 03:56 PM Reporting Lab: NM CNTRLAUREL [facility]ENTERTRN [facility] [address] [facility] [address] Performing Lab: NM CNTRL WSTRN [place] [facility] [address] [facility] [address] NM CNTRL WSTRN [facility] LIVER FUNCTION ALANINE AMINOTRANS FERASE [ENZYMATIC ACTIVITY/V OLUME] IN SERUM OR PLASMA BY WITH P-5'-P cancU/L 0 - 55 10/13 H Specimen Type: SERUM Comment: GLUCOSE reported incorrectly as 116 by [832862-NL3 31]. Changed to canc on Oct 14, 2024@15:47 by [304627-LN9 31]. GLUCOSE flagged incorrectly as H by [286395-DO8 31]. Abnormal flag removed on Oct 14, 2024@15:47 by [268096-FQ4 31]. UREA NITROGEN reported incorrectly as 4 by [940732-IA0 31]. Changed to canc on Oct 14, 2024@15:47 by [277228-NC5 31]. UREA NITROGEN flagged incorrectly as L by [262228-UY4 31]. Abnormal flag removed on Oct 14, 2024@15:47 by [203482-RO3 31]. SODIUM reported incorrectly as 136 by [086422-BH0 31]. Changed to canc on Oct 14, 2024@15:47 by [934984-IF4 31]. POTASSIUM reported incorrectly as 3.4 by [283458-NE8 31]. Changed to canc on Oct 14, 2024@15:47 by [233992-FM2 31]. POTASSIUM flagged incorrectly as L by [774347-WO8 31]. Abnormal flag removed on Oct 14, 2024@15:47 by [746672-AG8 31]. CHLORIDE reported incorrectly as 95 by [689620-PJ4 31]. Changed to canc on Oct 14, 2024@15:47 by [011298-SL3 31]. CHLORIDE flagged incorrectly as L by [952364-HG5 31]. Abnormal flag removed on Oct 14, 2024@15:47 by [803205-TH0 31]. CO2 reported incorrectly as 26 by [730355-GO8 31]. Changed to canc on Oct 14, 2024@15:47 by [744739-VO7 31]. CALCIUM reported incorrectly as 9.3 by [747880-QF7 31]. Changed to canc on Oct 14, 2024@15:47 by [181248-AS0 31]. CHOLESTEROL reported incorrectly as 247 by [132956-OK6 31]. Changed to canc on Oct 14, 2024@15:47 by [488553-CP5 31]. CHOLESTEROL flagged incorrectly as H by [310285-MI4 31]. Abnormal flag removed on Oct 14, 2024@15:47 by [523656-QE9 31]. PROTEIN,TOT AL reported incorrectly as 7.9 by [846736-AI2 31]. Changed to canc on Oct 14, 2024@15:47 by [400831-GJ7 31]. ALBUMIN reported incorrectly as 4.7 by [931163-CP4 31]. Changed to canc on Oct 14, 2024@15:47 by [697738-IC9 31]. ALBUMIN flagged incorrectly as H by [714213-EM4 31]. Abnormal flag removed on Oct 14, 2024@15:47 by [685502-UU2 31]. ALKALINE PHOSPHATASE reported incorrectly as 229 by [565530-HF9 31]. Changed to canc on Oct 14, 2024@15:47 by [644616-TO5 31]. ALKALINE PHOSPHATASE flagged incorrectly as H by [814294-VA3 31]. Abnormal flag removed on Oct 14, 2024@15:47 by [905289-MB5 31]. AST reported incorrectly as 209 by [381055-CE1 31]. Changed to canc on Oct 14, 2024@15:47 by [837969-YB1 31]. AST flagged incorrectly as H by [042058-CR2 31]. Abnormal flag removed on Oct 14, 2024@15:47 by [765791-YE9 31]. ALT reported incorrectly as 86 by [676019-QN8 31]. Changed to canc on Oct 14, 2024@15:47 by [848331-PX7 31]. ALT flagged incorrectly as H by [165244-XL3 31]. Abnormal flag removed on Oct 14, 2024@15:47 by [745125-QP9 31]. TRIGLYCERID E reported incorrectly as 232 by [858681-XM7 31]. Changed to canc on Oct 14, 2024@15:47 by [477178-CG8 31]. TRIGLYCERID E flagged incorrectly as H by [474315-EC6 31]. Abnormal flag removed on Oct 14, 2024@15:47 by [039636-WH3 31]. LDL calculated reported incorrectly as 166 by [841165-GH8 31]. Changed to canc on Oct 14, 2024@15:47 by [127770-JL1 31]. LDL calculated flagged incorrectly as H by [996928-GL2 31]. Abnormal flag removed on Oct 14, 2024@15:47 by [050298-AP2 31]. HDL CHOLESTEROL reported incorrectly as 35 by [286138-HW8 31]. Changed to canc on Oct 14, 2024@15:47 by [823816-KX5 31]. HDL CHOLESTEROL flagged incorrectly as L by [343165-NV0 31]. Abnormal flag removed on Oct 14, 2024@15:47 by [410541-ZK5 31]. BILIRUBIN, TOTAL reported incorrectly as 0.9 by [535890-OG4 31]. Changed to canc on Oct 14, 2024@15:47 by [332414-KA3 31]. CREATININE, Serum reported incorrectly as 0.53 by [819917-GH0 31]. Changed to canc on Oct 14, 2024@15:47 by [996278-KW2 31]. CREATININE, Serum flagged incorrectly as L by [207565-OE7 31]. Abnormal flag removed on Oct 14, 2024@15:47 by [946202-VI3 31]. eGFR(CKD-EP I 2020) reported incorrectly as >90 by [196091-QU0 31]. Changed to canc on Oct 14, 2024@15:47 by [027738-KP3 31]. Ordering Provider: DELORES JENSEN Report Released Date/Time: Sep 11, 2024 03:56 PM Reporting Lab: [facility] [address] [address] Performing Lab: NM CNTRL [facility] [place] [facility] [address] [facility] [address] NM CNTRLAUREL [facility] CENTERTRN [place] [facility] LIVER FUNCTION BILIRUBIN. TOTAL [MASS/VOLU ME] IN SERUM OR PLASMA cancmg/d L 0.2 - 1.2 10/13 Specimen Type: SERUM Comment: GLUCOSE reported incorrectly as 116 by [062013-YY8 31]. Changed to canc on Oct 14, 2024@15:47 by [940397-KX0 31]. GLUCOSE flagged incorrectly as H by [695850-AF3 31]. Abnormal flag removed on Oct 14, 2024@15:47 by [633627-AH4 31]. UREA NITROGEN reported incorrectly as 4 by [453940-CZ4 31]. Changed to canc on Oct 14, 2024@15:47 by [872948-LI0 31]. UREA NITROGEN flagged incorrectly as L by [126714-RU2 31]. Abnormal flag removed on Oct 14, 2024@15:47 by [578731-UR1 31]. SODIUM reported incorrectly as 136 by [827196-CK4 31]. Changed to canc on Oct 14, 2024@15:47 by [451069-TZ5 31]. POTASSIUM reported incorrectly as 3.4 by [012827-QO0 31]. Changed to canc on Oct 14, 2024@15:47 by [764063-YJ2 31]. POTASSIUM flagged incorrectly as L by [939830-QQ0 31]. Abnormal flag removed on Oct 14, 2024@15:47 by [433597-VS6 31]. CHLORIDE reported incorrectly as 95 by [166729-PR3 31]. Changed to canc on Oct 14, 2024@15:47 by [868665-XH6 31]. CHLORIDE flagged incorrectly as L by [783097-EY3 31]. Abnormal flag removed on Oct 14, 2024@15:47 by [473172-BM7 31]. CO2 reported incorrectly as 26 by [358540-EX4 31]. Changed to canc on Oct 14, 2024@15:47 by [062341-PN3 31]. CALCIUM reported incorrectly as 9.3 by [627255-BX6 31]. Changed to canc on Oct 14, 2024@15:47 by [167591-NA2 31]. CHOLESTEROL reported incorrectly as 247 by [757173-ED7 31]. Changed to canc on Oct 14, 2024@15:47 by [548801-TN2 31]. CHOLESTEROL flagged incorrectly as H by [635353-FX4 31]. Abnormal flag removed on Oct 14, 2024@15:47 by [697494-BK9 31]. PROTEIN,TOT AL reported incorrectly as 7.9 by [093940-XA2 31]. Changed to canc on Oct 14, 2024@15:47 by [397007-EY1 31]. ALBUMIN reported incorrectly as 4.7 by [130780-KF1 31]. Changed to canc on Oct 14, 2024@15:47 by [767012-DC4 31]. ALBUMIN flagged incorrectly as H by [139827-YL4 31]. Abnormal flag removed on Oct 14, 2024@15:47 by [059831-UU1 31]. ALKALINE PHOSPHATASE reported incorrectly as 229 by [442270-AA6 31]. Changed to canc on Oct 14, 2024@15:47 by [436042-XZ0 31]. ALKALINE PHOSPHATASE flagged incorrectly as H by [979956-KV3 31]. Abnormal flag removed on Oct 14, 2024@15:47 by [498507-GA5 31]. AST reported incorrectly as 209 by [689093-ZN9 31]. Changed to canc on Oct 14, 2024@15:47 by [668299-ZC5 31]. AST flagged incorrectly as H by [065267-XS6 31]. Abnormal flag removed on Oct 14, 2024@15:47 by [576061-UN5 31]. ALT reported incorrectly as 86 by [508652-HP2 31]. Changed to canc on Oct 14, 2024@15:47 by [512845-OC7 31]. ALT flagged incorrectly as H by [997397-YP6 31]. Abnormal flag removed on Oct 14, 2024@15:47 by [723239-SO8 31]. TRIGLYCERID E reported incorrectly as 232 by [606513-RU0 31]. Changed to canc on Oct 14, 2024@15:47 by [257418-WQ8 31]. TRIGLYCERID E flagged incorrectly as H by [292341-EH0 31]. Abnormal flag removed on Oct 14, 2024@15:47 by [338427-GM0 31]. LDL calculated reported incorrectly as 166 by [177656-QJ8 31]. Changed to canc on Oct 14, 2024@15:47 by [069620-AG6 31]. LDL calculated flagged incorrectly as H by [409074-BV4 31]. Abnormal flag removed on Oct 14, 2024@15:47 by [686160-PE1 31]. HDL CHOLESTEROL reported incorrectly as 35 by [817912-IJ6 31]. Changed to canc on Oct 14, 2024@15:47 by [923563-WA4 31]. HDL CHOLESTEROL flagged incorrectly as L by [316373-ED5 31]. Abnormal flag removed on Oct 14, 2024@15:47 by [233615-CY7 31]. BILIRUBIN, TOTAL reported incorrectly as 0.9 by [173248-HK4 31]. Changed to canc on Oct 14, 2024@15:47 by [756185-ZJ4 31]. CREATININE, Serum reported incorrectly as 0.53 by [375895-NU6 31]. Changed to canc on Oct 14, 2024@15:47 by [297802-QU6 31]. CREATININE, Serum flagged incorrectly as L by [241006-HG6 31]. Abnormal flag removed on Oct 14, 2024@15:47 by [965698-TB8 31]. eGFR(CKD-EP I 2020) reported incorrectly as >90 by [007782-VP1 31]. Changed to canc on Oct 14, 2024@15:47 by [782143-XE0 31]. Ordering Provider: DELORES JENSEN Report Released Date/Time: Sep 11, 2024 03:56 PM Reporting Lab: [facility] [address] [facility] [address] Performing Lab: [facility] [address] [facility] [address] [facility] OCCULT BLOOD FIT X1 SCREEN(I N-HOUSE) HEMOGLOBIN .GASTROINT ESTINAL.LO WER [PRESENCE] IN STOOL BY IMMUNOASSA Y POSITIVE 06/12 HH Specimen Type: FECES Comment: Collection date could not be determined. Sample integrity cannot be ensured. Follow-up clinical evaluation following this presumptive positive result is required to determine further action. Ordering Provider: DELORES JENSEN Report Released Date/Time: May 23, 2024 03:07 PM Reporting Lab: [facility] [place] [facility] [address] [facility] [address] Performing Lab: [facility] [place] [facility] [address] [facility] [address] [facility] [place] [facility] Vital Signs Combined list of inpatient and outpatient Vital Signs from Department of Defense and [employer] Affairs, ranging from 12 months to all on record, depending upon the facility. Vital Sign Value Date Comments Source SYSTOLIC BLOOD PRESSURE 140 07/03/19 25 11:04:16 [facility] [place] [facility] DIASTOLIC BLOOD PRESSURE 83 025 11:04:16 [facility] [place] [facility] PULSE OXIMETRY 97 07/03/2024 11:04:16 [facility] [place] [facility] WEIGHT 171 07/03/2024 11:04:16 [facility] [place] [facility] BMI 25 kg/m2 07/03/2024 11:04:16 [facility] [place] [facility] PAIN 0 07/03/2024 11:04:16 [facility] [place] [facility] HEIGHT 70 07/03/2024 11:04:16 [facility] [place] [facility] TEMPERATURE 98.2 07/03/2024 11:04:16 [facility] [place] [facility] PULSE 78 07/03/2024 11:04:16 [facility] [place] [facility] RESPIRATION 20 07/03/2024 11:04:16 [facility] [place] [facility] SYSTOLIC BLOOD PRESSURE 137 03/24/20 24 11:24:09 [facility] [place] [facility] DIASTOLIC BLOOD PRESSURE 78 024 11:24:09 [facility] PULSE OXIMETRY 96 03/24/2024 11:24:09 [facility] WEIGHT 171.8 03/24/2024 11:24:09 [facility] BMI 25 kg/m2 03/24/2024 11:24:09 [facility] PAIN 0 03/24/2024 11:24:09 [facility] HEIGHT 70 03/24/2024 11:24:09 [facility] TEMPERATURE 98 03/24/2024 11:24:09 [facility] PULSE 80 03/24/2024 11:24:09 [facility] RESPIRATION 16 03/24/2024 11:24:09 [facility] Encounters Combined list of: 1) Encounters from Department of Veterans Affairs facilities going backup to the last 18 months, not all VA inpatient encounters are included; 2) Encounters from the Department of Defense facilities going backup to 280 months. Location Location Details Encounter Type Encounter Number Reason For Visit Attending Provider ADM Date DC Date Status Disposition Source [facility] Outpatient Encounter [id number] 08/20 [facility] Outpatient Encounter [id number] 08/21 [facility] Outpatient Encounter [id number] 09/12 [facility] Outpatient Encounter [id number] 09/24 [facility] OFFICE O/P EST HI 40 MIN [id number]. 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 PATIENCE SALAZAR 02/04 [facility] Outpatient Encounter [id number] 03/19 [facility] OFFICE O/P EST MOD 30 MIN [id number] Diagnos is: ICD-10- CM E78.5 Hyperli pidemia , unspeci fied Makenzie JENSEN 03/24 [facility] Out[facility] Encounter [id number] 1.04/21 [facility] Out[facility] Encounter [id number] 06/02 [facility] Out[facility] Encounter [id number] 06/02 [facility] Out[facility] Encounter [id number] [facility] Outpatient Encounter [id number] Diagnos is: ICD-10- CM Z71.2 Person consult ing for explana tion of exam or test finding Makenzie Rm 06/17 [facility] Out[facility] Encounter [id number] 06/27 [facility] Out[facility] Encounter [id number] 06/27 [facility] OFFICE O/P EST MOD 30 MIN [id number] Diagnos is: ICD-10- CM N52.9 Male erectil e dysfunc tion, unspeci fied Makenzie JENSENM J 07/03 [facility] NQHP OL DIG ASSMT&MGMT 5-10 [id number] Diagnos is: ICD-10- CM N52.9 Male erectil e dysfunc tion, unspeci fied WENDY WESTBROOK 07/05 [facility] Out[facility] Encounter [id number] 07/28 [facility] Out[facility] Encounter [id number] 08/12 [facility] Out[facility] Encounter [id number] 08/14 [facility] Out[facility] Encounter [id number] 09/22 [facility] Outpatient Encounter [id number] 10/22 [facility] Outpatient Encounter [id number] 10/22 [facility] Outpatient Encounter [id number] 05/12 /2025 [facility] Out[facility] Encounter [id number] 10/27 [facility] Outpatient Encounter [id number] 11/11 [facility] Outpatient Encounter [id number] 11/13 [facility] Outpatient Encounter [id number] 11/17 [facility] Social History Combined list of available smoking, tobacco, and other social history from Department of Defense and Veterans Affairs facilities. Social History Type Response Date Comment [facility] e Tobacco smoking status NHIS VA-TOBACCO NEVER USED CIGARETTES 07/03/2024 [facility] History of tobacco use VA-TOBACCO NEVER USED OTHER TYPE 07/03/2024 [facility] History of tobacco use VA-TOBACCO NEVER USED 06/05/2023 [facility] History of tobacco use VA-TOBACCO USER EVERY DAY 05/17/2022 [facility] History of tobacco use VA-TOBACCO USER EVERY DAY 03/17/2021 [facility] History of tobacco use VA-TOBACCO USE MED NO 09/25/2019 [facility] History of tobacco use VA-TOBACCO DOESNT USE WI 30 MIN WAKEUP 06/19/2018 [facility] History of tobacco use CURRENT SMOKER 05/08/2017 cigars [facility] History of tobacco use CURRENT SMOKER 04/14/2016 [facility]
--- NOTE | 2025-02-17 10:09 | MHC.OFFVIS ---
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 He is a patient of the [facility]. He is seen for the following urologic conditions - erectile dysfunction Telemedicine Evaluation 15 min Consultation DoxTransfer To [place] Video Follow-up from trial of 10 mg daily with 20 on demand Has had sufficient benefit Would like to increase on demand dosage Permission to take up to 40 mg on demand New prescriptions provided Erectile dysfunction - Onset of erectile dysfunction approximately 15 years ago. - Initial treatment with Viagra showed initial benefit; ceased effectiveness over time. - Trial of Cialis provided minimal improvement. - prior dosing 5 mg of tadalafil daily from online provider with mild improvement. - Reports issues with sustaining and achieving erection - Trial 10 mg daily with 20 mg on demand Review of Systems Const All systems reviewed & are unremarkable except as noted in HPI and below Reports no additional complaints Resp Reports no additional complaints GI Reports no additional complaints Reports as per HPI Musc Reports no additional complaints Physical Exam Telemedicine evaluation Appropriate responses Regular breathing rate and rhythm HEENT Head: Yes normal to inspection Ears: hearing grossly normal bilaterally Eyes General: appearance normal, both eyes and all related structures Neck Neck: Yes normal visual inspection Chest Chest palpation & inspection: normal inspection of the chest Resp Effort & Inspection: normal respiratory effort and able to speak in complete sentences Telehealth Telehealth Telehealth Platform: [employer] Location of provider rendering services: practice address Location of patient: address on file Patient Identification confirmed using: Name, : Yes Telehealth method: video Patient verbally consented to treatment: Yes Patient verbally consented to billing insurance company: Yes Patient informed of any privacy concerns related to visit: Yes Assessment & Plan Assessment & Plan (1) Erectile dysfunction: Code(s): N52.9 - Male erectile dysfunction, unspecified Category: Medical Plan Six-month follow-up office Medications: Changed From tadalafil 60 minutes performed 10 and activity 20 mg PO ONCE 90 days PRN 12 tabs 0RF sexual activity N52.9 - Male erectile dysfunction, unspecified To tadalafil 60 minutes performed 10 and activity 20 mg PO ONCE PRN 30 tabs 1RF sexual activity 30 days N52.9 - Male erectile dysfunction, unspecified Refilled tadalafil Daily medication [id number] [facility] [id number] Member [id number] 10 mg PO DAILY 90 tabs 1RF sexual activity 90 days N52.9 - Male erectile dysfunction, unspecified Patient Instructions: This note is constructed using voice recognition software. While every effort has been made to ensure accuracy manager financial planning errors may have been included. Imaging studies, laboratory and physical exam results were discussed and reviewed in detail. No major barriers to patient understanding were identified. An opportunity to ask questions regarding the treatment plan was provided. All questions were answered. The patient expressed understanding and agreement with the above treatment plan. The patient is aware they should contact our office by phone for worsening of their current condition or the appearance of new urologic symptoms. Compliance is encouraged with any medications and followup testing that is ordered. It is a privilege to participate in the urologic care of your patient. If you have any questions or concerns regarding treatment for the above conditions, or other urologic issues, please do not hesitate to contact me. The office telephone contact is [phone]. Sincerely, Dr Santy Hanson MD, [facility] [place] - Urology Compassionate Specialist Care for the Genitourinary System Coding Level of Care Code Tele Est Pt Level 4 (77317) Complex EM visit Add On G2211 Diagnoses Erectile dysfunction N52.9
--- OUTSIDE RECORDS SUMMARY | 2025-02-17 11:35 | XMS_ITS | Encounter Summary ---
Author Organization [facility] Address [address] [address] Phone Care Team Providers Care Mattress Specialist Name Role Phone Tico Jensen NP Primary Care Provide r Encounter Details Date Type Department Care Team (Late st Contact Info) Description 10/22/2024 Procedure Pass [facility] Admitting Dept Virtual Department [address] [place] [address] Social History Tobacco Use Types Packs/Day Years Used Date Smoking Tobacco: Some Days Cigars Smokeless Tobacco: Never Alcohol Use Standard Drinks/Week Comments Yes 0 (1 standard drink = 0.6 oz pur e alcohol) 1-2 beers daily Education Answer Date Recorded Are you interested in more education? Not on hammad e 10/14/2022 Are you concerned about learning? Not on file 10/14/2022 No 10/14/2022 No 10/14/2022 Digital Access Answer Date Recorded No 11/14/2022 No 11/14/2022 Reliable internet access at home? Not on file 11/14/2022 Device with a working camera? Not on file Intimate Partner Violence Answer Date R ecorded Are you denied basic needs s uch as food, clothing, or medical care? No 10/17/2024 In the past 12 months have y ou been in a relationship with a person who hurts, threatens, or tries to control you? No 10/17/2024 Are you denied basic needs s uch as food, clothing, or medical care? No 10/17/2024 In the past 12 months have y ou been in a relationship with a person who hurts, threatens, or tries to control you? No 10/17/2024 Sex and Gender Information Value Date Recorded Sex Assigned at Male 05/04/2022 9:13 AM EST Legal Sex Male 8:03 AM EST Gender Identity Male 05/04/2022 9:13 AM EST Sexual Orientation Straight 05/04/2022 9: 13 AM EST documented as of this encounter Plan of Treatment Not on file documented as of this encounter Visit Diagnoses Not on filedocumented in this encounter Care Teams Mattress Specialist Relationship Specialty Start Date End Date Tico Jensen NP [address] [place] [address] PCP - General Nurse Practitioner 10/22/24 documented as of this encounter Additional Source Comments The information contained in this document represents components of the legal health record. It is not the complete legal health record.[facility]
--- OUTSIDE RECORDS SUMMARY | 2025-02-17 11:35 | XMS_ITS | Clinical Summary ---
Author Organization [facility] Address [address] [address] Phone Care Team Providers Care Coo Name Role Phone Tico Jensen NP Primary Care Provide r Allergies Active Allergy Reactions Criticality Noted Date Comments Penicillins Hives,Rash Low 10/17/2024 Medications oxyCODONE 5 MG immediate release tablet Take 1 tablet (5 mg total) by mouth every 6 (six) hours as needed. Partial fill ok 12 tablet 2 Active Additional Information Patient not taking.Reported on 10/17/2024 atorvastatin (LIPITOR) 20 MG tablet 10 mg. 2 Active fluoride, sodium, (PREVIDENT 5000 BOOSTER) 1.1 % Pste USE PASTE IN PLACE OF TOOTHPASTE AT BEDTIME. BRUSH FOR 2 MINUTES THEN SPIT OUT 5 Active losartan (COZAAR) 100 MG tablet 100 mg. 2 Active sildenafiL (VIAGRA) 50 mg tablet 50 mg. 3 Active traZODone (DESYREL) 100 MG tablet 150 mg nightly at bedtime as needed. 2 Active tadalafiL (CIALIS) 10 MG tablet Take 10 mg by mouth daily as needed. 5 Active urea 10 % lotion Apply topically. 4 Active atorvastatin (LIPITOR) 40 MG tablet Take 20 mg by mouth daily. 5 Active losartan (COZAAR) 50 MG tablet Take 50 mg by mouth daily. Active traZODone (DESYREL) 100 MG tablet Take 150 mg by mouth nightly at bedtime as needed. Active Active Problems Problem Noted Date Diagnosed Date Benign essential hypertension 10/21/2024 Overview (10/21/2024): 07/14/15 Q YEARLY SO/MGT VISITS per Dr. 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 Lumbar radiculopathy 10/21/2024 Prediabetes 10/21/2024 Overview (10/21/2024): May 08, 2017 Entered By: EMANI BECK Comment: Glucose 122 fasting April 14 2017 .Diet ,reeval labs Stage 3 chronic kidney disease 10/21/2024 Tobacco user 10/21/2024 Mixed hyperlipidemia 06/04/2018 Overview (10/21/2024): May 08, 2017 Entered By: EMANI BECK Comment: LDL 153 /chol 242 Apr 14 2016 in prediabetic .Lipitor s Squamous cell carcinoma of skin 06/04/2018 Social History Tobacco Use Types Packs/Day Years Used Date Smoking Tobacco: Some Days Cigars Smokeless Tobacco: Never Tobacco Cessation:Ready to Q uit: Not Asked; Counseling Given: Not Answered Alcohol Use Standard Drinks/Week Comments Yes 0 [...] Orientation Straight 05/04/2022 9: 13 AM EST Last Filed Vital Signs Vital Sign Reading Time Taken Comments Blood Pressure 121/86 10/22/2024 11:51 AM EDT Pulse 76 10/22/2024 12:02 PM EDT Temperature 36.6 C (97.9 F) 10/22/2024 11:42 AM EDT Respiratory Rate 15 10/22/2024 12:02 PM EDT Oxygen Saturation 96% 10/22/2024 11:51 AM EDT Inhaled Oxygen Concentration - - Weight 74.8 kg (165 lb) 10/17/2024 8:18 AM EDT Height 177.8 cm (5' 10 ) 10/17/2024 8:18 AM EDT Body Mass Index 23.68 10/17/2024 8:18 AM EDT Plan of Treatment Health Maintenance Due Date Last Done Comments BLOOD PRESSURE 1950 CREATININE LEVEL 1950 LIPID PANEL 1950 POTASSIUM LEVEL 1950 DEPRESSION SCREENING 1961 HEPATITIS C SCREENING 1967 COLOGUARD 1994 FIT TEST 1994 FOBT 1994 SIGMOIDOSCOPY 1994 VIRTUAL COLONOSCOPY 1994 ZOSTER VACCINES (2 of 3) 01/21/2014 11/26/2013 Adult Td,Tdap Booster 03/27/2022 03/27/2012 RSV VACCINE (1 - 1-dose 75+ series) 2024 COVID-19 VACCINE (2023- season) 2024 03/24/2024, 06/05/2023, 12/02/2021, Additional history exists SMOKING Hx and SMOKELESS TOBACCO SCREENING 10/22/2025 10/22/2024 COLONOSCOPY 10/22/2034 10/22/2024 COLORECTAL CANCER SCREENING 10/22/2034 PNEUMOCOCCAL VACCINES (50+ years) Completed 03/30/2021, 06/04/2018, 07/13/2015 HEPATITIS A VACCINES Aged Out No long er eligible based on patient's age to complete this topic HIB VACCINES Aged Out No longer eligi ble based on patient's age to complete this topic MENINGOCOCCAL VACCINES (ACWY) Aged Out No longer eligible based on patient's age to complete this topic MENINGOCOCCAL VACCINES (B) Aged Out N o longer eligible based on patient's age to complete this topic Medical Devices Not on file Procedures Procedure Name Priority Date/Time Associated Diagnosis Comments ENDOSCOPY, COLON 10/22/2024 11:0 9 AM EDT from Last 3 Months or Most Recently Relevant to Health Maintenance Results * ENDOSCOPY, COLON (10/22/2024 11:09 AM EDT) Narrative Transcriptions Jonny Black MD - 10/22/2024 11:09 AM EDT [facility] Patient Name: Bart Hensley Attending MD:: JONNY BLACK MD, Procedure Date: 10/22/2024 11:09 AM Date of : 1950 Age: 74 Admit Type: Outpatient Gender: Male Room: [facility] Referring MD: Tico Jensen Exam Type: Colonoscopy Indications: This is the patient's first colonoscopy, Positive fecal immunochemical test Medications: Monitored Anesthesia Care Procedure: Informed consent was obtained from the patientafter discussion of the indications, limitations, alternatives, benefits, and risks of the procedure. Risks specifically discussed include but are not limited to medication reactions, missed lesions, bleeding, perforation, or the need for emergent surgery. Throughout the procedure, the patient's blood pressure, pulse, end-tidal CO2, and oxygensaturations were monitored continuously. The Olympus pediatric variable colonoscopePCF-[id number] #1 was introduced through the anus and advanced tothe cecum, identified by the appendiceal orifice, ileocecal valve and palpation. The colonoscopy was technically difficult and complex due to multiple diverticula in the colon. Successful completion ofthe procedure was aided by applying abdominal pressure. The patient tolerated the procedure fairly well.The quality of the bowel preparation was adequate to identify polyps. The ileocecal valve, appendiceal orifice, and rectum were photographed. Complications: No immediate complications. Estimated blood loss: Minimal. Findings: The perianal and digital rectal examinations were normal. Pertinent negatives include normalsphincter tone. Multiple small and large-mouthed diverticula were found in the sigmoid colon and descending colon.There was no evidence of diverticular bleeding. Two sessile polyps were found in the hepaticflexure. The polyps were 5 to 7 mm in size. These polypswere removed with a cold snare. Resection was complete,but one the polyps tissue was not retrieved. A 17 mm polyp was found in the descending colon at40 cm proximal to the anus. The polyp was semi-pedunculated. The polyp was removed with a hot snare. Resection and retrieval were complete. Estimated blood loss: none. Two semi-pedunculated polyps were found in the mid rectum. The polyps were 18 to 25 mm in size. These polyps were removed with a piecemeal techniqueusing a hot snare. Resection and retrieval were complete. Coagulation for destruction of remaining portion of lesion using snare was successful. Estimated blood loss was minimal. Retroflexion in the right colon was performed. Impression: - Moderate diverticulosis in the sigmoid colon andin the descending colon. There was no evidence of diverticular bleeding. - Two 5 to 7 mm polyps at the hepatic flexure,removed with a cold snare. Complete resection. Polyp tissue not retrieved. - One 17 mm polyp in the descending colon at 40 cm proximal to the anus, removed with a hot snare. Resected and retrieved. - Two 18 to 25 mm polyps in the mid rectum, removed piecemeal using a hot snare. Resected andretrieved. Treated with a hot snare. Recommendation: - I will send results of your biopsy to you and your referringphysician or provider. If you do not receive notification within 3 weeks,please call our office. - Repeat colonoscopy in 1 year to review the polypectomy site, for surveillance after piecemeal polypectomy and for surveillance of multiple polyps. - No aspirin, ibuprofen, naproxen, or other non-steroidal anti-inflammatory drugs for 10 days after polyp removal. JONNY BLACK MD 10/22/2024 11:44:15 AM This report has been signed electronically. Number of Addenda: 0 Note Initiated On: 10/22/2024 11:09 AM Procedure Code(s): --- Professional --- 08273, Colonoscopy, flexible; with removal of tumor(s), polyp(s), or other lesion(s) by snare technique --- Technical --- 84969, Colonoscopy, flexible; with removal of tumor(s), polyp(s), or other lesion(s) by snare technique Diagnosis Code(s): --- Professional --- D12.3, Benign neoplasm of transverse colon (hepatic flexure or splenic flexure) D12.8, Benign neoplasm of rectum D12.4, Benign neoplasm of descending colon R19.5, Other fecal abnormalities K57.30, Diverticulosis of large intestine without perforation or abscess without bleeding --- Technical --- D12.3, Benign neoplasm of transverse colon (hepatic flexure or splenic flexure) D12.8, Benign neoplasm of rectum D12.4, Benign neoplasm of descending colon R19.5, Other fecal abnormalities K57.30, Diverticulosis of large intestine without perforation or abscess without bleeding CPT copyright 2021 [employer]. All rights reserved. The codes documented in this report are preliminary and upon certified procedural coder reviewmay be revised to meet current compliance requirements. Procedure Date: 10/22/2024 11:09:20 AM [address] [place] [address] Tico Jensen NP GI PROCEDURE ORDERABL ES Final Result from Last 3 Months or Most Recently Relevant to Health Maintenance Insurance [facility] MEDICARE PART A & B [facility] MEDICARE PART A & B [facility] MEDICARE [facility] A & B [facility] MEDICARE [facility] A & B [facility] MEDICARE [facility] A & B [facility] MEDICARE PART A & B [facility] Care Teams Coo Relationship Specialty Start Date End Date Tico Jensen NP [address] [place] [address] PCP - General Nurse Practitioner 10/22/24 Additional Source Comments The information contained in this document represents components of the legal health record. It is not the complete legal health record.[facility]
--- OUTSIDE RECORDS SUMMARY | 2025-02-17 11:35 | XMS_ITS | Encounter Summary ---
Author Organization [facility] Address [address] [place] [address] [place] [address] Phone Care Team Providers Care Publisher Assistant Name Role Phone Evelia Barrios MD Primary Care Provider [phone] Tico Jensen NP Primary Care Provide r Encounter Details Date Type Department Care Team (Late st Contact Info) Description 01/08/2023 Procedure Pass [facility], [address] [address] Social History Tobacco Use Types Packs/Day Years Used Date Smoking Tobacco: Never Assessed Education Answer Date Recorded Are you interested in more education? Not on hammad e 10/14/2022 Are you concerned about learning? Not on file 10/14/2022 No 10/14/2022 No 10/14/2022 Digital Access Answer Date Recorded No 11/14/2022 No 11/14/2022 Reliable internet access at home? Not on file 11/14/2022 Device with a working camera? Not on file Sex and Gender Information Value Date Recorded Sex Assigned at Male 05/04/2022 9:13 AM EST Legal Sex Male 8:03 AM EST Gender Identity Male 05/04/2022 9:13 AM EST Sexual Orientation Straight 05/04/2022 9: 13 AM EST documented as of this encounter Plan of Treatment Not on file documented as of this encounter Visit Diagnoses Not on filedocumented in this encounter Care Teams Publisher Assistant Relationship Specialty Start Date End Date Evelia Barrios MD [address] [place] [address] PCP - General Internal Medicine 05/04/22 10/21/24 Tico Jensen NP [address] [place] [address] PCP - General Nurse Practitioner 10/22/24 documented as of this encounter Additional Source Comments The information contained in this document represents components of the legal health record. It is not the complete legal health record.[facility]
--- OUTSIDE RECORDS SUMMARY | 2025-02-17 11:35 | XMS_ITS | Encounter Summary ---
Author Organization [facility] Address [address] [place] [phone] Phone Care Team Providers Care Clarifier Operator Name Role Phone Evelia Barrios MD Primary Care Provider + [phone] Tico Jensen NP Primary Care Provide r Reason for Referral * MRI/CAT Scan - Closed Specialty Diagnoses / Procedures Referred By Contac t Referred To Contact Radiology Diagnoses Foot drop, left foot Procedures MRI Lumbar Spine CHG MRI, LUMBAR SPINE CHG MRI, LUMBAR SPINE CONTRAST CHG MRI, LUMBAR SPINE COMBO Evelia Barrios MD [address] [place] [address] Phone: tel: fax: Referral ID Status Reason Start Date Expiration Date Visits Re quested Visits Authorized [id number] Closed 01/08/2023 03/06/2023 1 1 Encounter Details Date Type Department Care Team (Late st Contact Info) Description 01/08/2023 Transcribe Orders Virtual Department [address] [place] [address] Evelia Barrios MD [address] [place] [address] Foot drop, left foot (Primary Dx) Social History Tobacco Use Types Packs/Day Years [...] on file documented as of this encounter Results * MRI LUMBAR SPINE (NEURO) WITHOUT CONTRAST (02/16/2023 3:39 PM EDT) Anatomical Region Laterality Modality L-spine Magnetic Resonan ce 02/21/2023 6:58 PM EDT Impressions 02/21/2023 7:56 PM EDT Multilevel lumbar spine degenerative changes as described, with multilevel foraminal stenosis from L3-L4 through L5-S1 ranging from moderate to severe. No evidence of significant central spinal canal stenosis. Narrative 02/21/2023 7:56 PM EDT MRI LUMBAR SPINE (NEURO) WITHOUT CONTRAST TECHNIQUE: MRI LUMBAR SPINE (NEURO) WITHOUT CONTRAST Multi-sequence, multi-planar MRI of the lumbar spine was performed without intravenous contrast. COMPARISON: None FINDINGS: Alignment and Vertebrae: Mild levoconvex curvature centered at approximately L3 based on localizer images. Grade 2 anterolisthesis of L5 on S1, with likely pars defects. No compression fracture. Marrow: Few areas of focal fatty marrow, as well as a likely benign hemangioma at the S2 level. No suspicious focal marrow-replacing lesion. Discs and Endplates: Severe disc space narrowing at L5-S1, [id number] elsewhere. Endplate marrow edema at L3-L4. Other Findings: None. Findings by level: Scoliosis reduces precision for assessment of neural foraminal stenosis. T12-L1: No spinal or foraminal stenosis. L1-L2: Right facet arthropathy. No spinal canal stenosis or definite foraminal stenosis. L2-L3: Diffuse disc bulge. Bilateral facet arthropathy. Ligamentum flavum hypertrophy. At least mild and possibly moderate right foraminal stenosis. Likely mild left foraminal stenosis. No significant spinal canal stenosis. L3-L4: Diffuse disc bulge. Bilateral facet arthropathy. Severe right and moderate left foraminal stenosis. Narrowing of both subarticular zones. No evidence of significant central spinal canal stenosis. L4-L5: Diffuse disc bulge. Bilateral facet arthropathy. Severe right and moderate left foraminal stenosis. No significant central spinal canal stenosis. L5-S1: Diffuse disc bulge. Uncovering of the intervertebral discs by grade 2 anterolisthesis of L5 on S1. Severe bilateral foraminal stenosis. No significant central spinal canal stenosis. Procedure Note Jorge Luis Bennett MD - 02/21/2023 MRI LUMBAR SPINE (NEURO) WITHOUT CONTRAST TECHNIQUE: MRI LUMBAR SPINE (NEURO) WITHOUT CONTRAST Multi-sequence, multi-planar MRI of the lumbar spine was performed withoutintravenous contrast. COMPARISON: None FINDINGS: Alignment and Vertebrae: Mild levoconvex curvature centered atapproximately L3 based on localizer images. Grade 2 anterolisthesis of L5on S1, with likely pars defects. No compression fracture. Marrow: Few areas of focal fatty marrow, as well as a likely benignhemangioma at the S2 level. No suspicious focal marrow-replacing lesion. Discs and Endplates: Severe disc space narrowing at L5-S1,[id number] elsewhere. Endplate marrow edema at L3-L4. Other Findings: None. Findings by level: Scoliosis reduces precision for assessment of neural foraminal stenosis. T12-L1: No spinal or foraminal stenosis. L1-L2: Right facet arthropathy. No spinal canal stenosis or definiteforaminal stenosis. L2-L3: Diffuse disc bulge. Bilateral facet arthropathy. Ligamentum flavumhypertrophy. At least mild and possibly moderate right foraminal stenosis.Likely mild left foraminal stenosis. No significant spinal canalstenosis. L3-L4: Diffuse disc bulge. Bilateral facet arthropathy. Severe right andmoderate left foraminal stenosis. Narrowing of both subarticular zones. Noevidence of significant central spinal canal stenosis. L4-L5: Diffuse disc bulge. Bilateral facet arthropathy. Severe right andmoderate left foraminal stenosis. No significant central spinal canalstenosis. L5-S1: Diffuse disc bulge. Uncovering of the intervertebral discs by grade2 anterolisthesis of L5 on S1. Severe bilateral foraminal stenosis. Nosignificant central spinal canal stenosis. IMPRESSION: Multilevel lumbar spine degenerative changes as described, with multilevelforaminal stenosis from L3-L4 through L5-S1 ranging from moderate tosevere. No evidence of significant central spinal canal stenosis. Evelia Barrios MD IMG MR XSPECIALTY Final Resu lt documented in this encounter Visit Diagnoses Diagnosis Foot drop, left foot- Primary Foot drop, left foot documented in this encounter Care Teams Clarifier Operator Relationship Specialty Start Date End Date Evelia Barrios MD [address] [place] [address] PCP - General Internal Medicine 05/04/22 10/21/24 Tico Jensen NP [address] [place] [phone] PCP - General Nurse Practitioner 10/22/24 documented as of this encounter Additional Source Comments The information contained in this document represents components of the legal health record. It is not the complete legal health record.[facility]
== END 2025-02-17 10:41 | disposition home or self-care (01) ==
LOC: HO.HUSH 10:08
PROVIDERS: PCP Internal Medicine Endocrinology, Diabetes & Metabolism; Visit Provider Urology
DX: N52.9 Male erectile dysfunction, unspecified (principal)
CPT/HCPCS: 99214; G2211